=== PATIENT | female | born 1970 | race Caucasian/White ===

== ENCOUNTER 2025-08-03 16:21 | Outpatient (REF) | payer OTHER, SELFPAY ==
--- OUTSIDE RECORDS SUMMARY | 2025-06-22 08:51 | XMS_ITS | Encounter Summary ---
Author Organization [facility] Address [address] [place] [address] Care Team Providers Care Cradle Slide Maker Name Role Phone Unavailable Primary Care Provider Unavailabl e Reason for Referral * Outpatient (Routine) - Authorized Specialty Diagnoses / Procedures Referred By Alicia ferguson Referred To Contact Medical Oncology / Oncology Diagnoses Malignant Neoplasm Of Uterus Endometrial (HCC) Sri Cormier P.A.-C., M.S. [address] [place] [address] Phone: tel: fax: [facility] Referral ID Status Reason Start Date Expiration Date V isits Requested Visits Authorized [id number] Authorized 06/23/2025 12/23/2026 1 1 * Outpatient (Routine) - Closed Specialty Diagnoses / Procedures Referred By Alicia ferguson Referred To Contact Radiation Oncology Diagnoses Malignant Neoplasm Of Uterus Endometrial (HCC) Palak Nobles M.D. [address] [place] [address] Phone: tel: fax: [facility] Referral ID Status Reason Start Date Expiration Date Visits Re quested Visits Authorized [id number] Closed 05/31/2025 11/30/2026 1 1 Reason for Visit * Outpatient (Routine) - Closed Specialty Diagnoses / Procedures Referred By Contniles t Referred To Contact Radiation Oncology Diagnoses Malignant Neoplasm Of Uterus Endometrial (HCC) Palak Nobles M.D. [address] [place] [address] Phone: tel: fax: [facility] Referral ID Status Reason Start Date Expiration Date Visits Re quested Visits Authorized [id number] Closed 05/31/2025 11/30/2026 1 1 Encounter Details Date Type Department Care Team (Latest Contact Info) Description 06/22/2025 9:51 AM CDT - 06/23/2025 4:17 PM CDT Hospital Encounter Department of Radiation Oncology in [place], [place] [address] [place] [phone] Soren Dueñas M.D. [address] [place] [phone] Malignant Neoplasm Of Uterus Endometrial (HCC) (Primary Dx) Social History Tobacco Use Types Packs/Day Years Used Date Smoking Tobacco: Never Passive Smoke Exposure: Never Smokeless Tobacco: Never Alcohol Use Standard Drinks/Week Comments Not Currently 0 (1 standard drink = 0.6 oz pure alcohol) Very infrequently. Perhaps 2-3 drinks per year at special events. Humiliation, Afraid, Rape, and Kick questionnair e Answer Date Recorded Within the last year, have y ou been afraid of your partner or ex-partner? No 05/07/2025 Within the last year, have y ou been humiliated or emotionally abused in other ways by your partner or ex-partner? No Within the last year, have y ou been kicked, hit, slapped, or otherwise physically hurt by your partner or ex-partner? No 05/07/2025 Within the last year, have y ou been raped or forced to have any kind of sexual activity by your partner or ex-partner? No 05/07/2025 Hunger Vital Sign Answer Date Recorded Within the past 12 months, y ou worried that your food would run out before you got the money to buy more. Never true 05/07/20 25 Within the past 12 months, t he food you bought just didn't last and you didn't have money to get more. Never true 05/07/2025 PRAPARE - Transportation Answer Date Re corded In the past 12 months, has l ack of transportation kept you from medical appointments or from getting medications? No 12/2024 In the past 12 months, has l ack of transportation kept you from meetings, work, or from getting things needed for daily living? No 05/07/2025 [facility] Utilities Answer Date Recorded In the past 12 months has th e [employer], gas, oil, or water company threatened to shut off services in your home? No 05/07/2025 Housing Stability Answer Date Recorded What is your living situation today? I have a [facility] place to live 05/07/2025 Comments No Sex and Gender Information Value Date Recorded Sex Assigned at Female 04/16/2025 2:23 PM CDT Legal Sex Female 12:06 PM CDT Gender Identity Female 04/16/2025 2:23 PM CDT Sexual Orientation Straight 04/16/2025 2: 23 PM CDT documented as of this encounter Last Filed Vital Signs Vital Sign Reading Time Taken Comments Blood Pressure - - Pulse - - Temperature - - Respiratory Rate - - Oxygen Saturation - - Inhaled Oxygen Concentration - - Weight 78.9 kg (174 lb) 06/22/2025 9:56 AM CDT Height - - Body Mass Index 31.02 05/31/2025 1:02 PM CDT documented in this encounter Medications at Time of Discharge buPROPion XL (Wellbutrin XL) 150 mg 24 hr tablet Take 150 mg by mouth daily. Lactobacillus acidophilus (Probiotic) 10 billion cell capsule Take 1 capsule by mouth daily. multivitamin-min erals-lutein (Multivitamin 50 Plus) tablet Take 1 tablet by mouth daily. omega-3 fatty acids 1,000 mg capsule Take 1 g by mouth daily. rivaroxaban (Xarelto) 20 mg tablet Take 20 mg by mouth daily with evening meal. 03/31/2025 sennosides-docus ate sodium (Senokot-S) 8.6-50 mg per tablet Take 1 tablet by mouth daily. Until bowels return to normal 05/10/2025 venlafaxine XR (Effexor-XR) 75 mg 24 hr capsule Take 75 mg by mouth daily. acetaminophen (TylenoL) 500 mg tablet Take 2 tablets (1,000 mg total) by mouth every 6 (six) hours as needed for pain. 05/10/2025 5 ibuprofen 200 mg tablet Take 3 tablets (600 mg total) by mouth every 6 (six) hours as needed for pain. 05/10/2025 5 oxyCODONE (Roxicodone) 5 mg immediate release tabletIndication s:Acute Pain Take 1 tablet (5 mg total) by mouth every 4 (four) hours as needed for pain (not relieved by acetaminophen and ibuprofen) Indication: Acute Pain. 5 tablet 05/10/2025 2:09 PM CDT 05/10/2025 5 documented as of this encounter Consult Notes * Sri Cormier P.A.-C., M.S. - 06/22/2025 10:00 AM CDT RADIATION ONCOLOGY CONSULTATION SUBJECTIVE REQUESTING PROVIDER Palak Nobles M.D. REASON FOR CONSULT Ms. Nicole is a 55 y.o. year old woman with FIGO IIIC1i grade 1 endometrioid carcinoma of the uteruspresenting for consultation regarding the role of radiation therapy. Collaborating physician: Dr. Soren Dueñas ([phone]) HISTORY OF PRESENT ILLNESS Ms. April Nicole is a G0 55 y.o. female from [place], [place] with the following oncologichistory: Oncology History Malignant Neoplasm Of Uterus Endometrial (HCC) Initial Diagnosis 03/28/2025: Presented to outside ED with anxiety and palpitations, found to have recurrent pulmonary embolism with right heart strain. History of blood clots, with the first occurring in Junend a second clot earlier in 2024. Workup also revealed new ovarian and endometrial masses. 03/30/2025: CT abdomen pelvis reported endometrial mass likely represents endometrial carcinoma. 17cm malignant ovarian mass may be a metastasis. Scant ascites. Minimal stranding in the peritoneal cavity without definite nodules. Retroperitoneal lymphadenopathy. Mildly prominent epicardial lymph nodes. 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 CA 125= 290 [facility] pathology review: Endometrium, biopsy ([id number]; 03/30/2025): Complex atypical hyperplasia with squamous metaplasia focally bordering on FIGO grade 1 endometrioid carcinoma. 04/05/2025 Biopsy/Pathology Endometrial biopsy at [facility]: Tiny fragment of endometrial tissue with rare atypical glands and focal squamous metaplasia. Numerous fragments of unremarkable endocervical tissue in background of blood and endocervical type mucus. [facility] pathology review: Predominantly endocervical tissue present, insufficient endometrium for evaluation. 05/07/2025 Surgery and Procedures Exploratory laparotomy, total abdominal hysterectomy, bilateral salpingo oophorectomy, bilateral pelvic sentinel lymph node biopsies, right para-aortic lymphadenectomy, omentectomy, appendectomy withDr. Spears. 05/07/2025 Biopsy/Pathology Pathology reported FIGO grade 1 endometrioid carcinoma forming a 5 cm uterine mass, invading 2.5/4.5 cm into the myometrium (> 50%). Extensive lymphovascular space invasion is identified. Cervix negative for tumor. The left ovary contains a focus of FIGO grade 1 endometrioid carcinoma, 0.2 cm ingreatest dimension. FIGO grade 1-2 endometrioid carcinoma forms an 18 cm ovarian mass in the right o vary. The capsule is intact. The right fallopian tube is negative for tumor. Peritoneal pelvic cystic excision contained macrophages with rare clusters of endometrioid carcinoma. Omentum negative fortumor. Peritoneum, small bowel mesentery negative for tumor. Appendix negative for tumor. Peritoneum, Left pericolic flexure negative for tumor. 1/2 left pelvic sentinel lymph nodes positive for metastatic adenocarcinoma, metastasis consistent of two cell clusters, both < 0.5 mm, consistent withmicro metastasis. 1/1 right pelvic sentinel lymph node positive for isolated tumor cells. 7/7 rightpara-aortic lymph nodes negative for tumor. Cytology negative for malignancy. Comment: The findings support the primary site as endometrium rather than synchronous endometrioid carcinoma as arising at multiple sites. 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 HARRIS. The following CLINICALLY RELEVANT VARIANT was detected: Gene: [id number] DNA Change: c.98C>G (Exon 3) Amino Acid Change: p.S33C ([id number]) Variant Allele Frequency: 39.3% Clin/Path Stage Cancer Staging Malignant Neoplasm Of Uterus Endometrial (HCC) Staging form: Corpus Uteri - Carcinoma and Carcinosarcoma, AJCC 8th Edition and FIGO 2022 - Pathologic stage from 05/07/2025: FIGO Stage IIIC1i, calculated as Stage IIIC1 (pT3a, pN1mi, cM0) Histologic grade (G): G1 Histologic grading system: 3 grade system Residual tumor (R): R0 Extensive LVSI, bilateral ovarian involvement (18 cm rt ovarian met), >50 % MMI, INTERVAL HISTORY April Nicole confirms the above summary. She is now approximately 6-1/2 weeks out from surgery and has been recovering very well overall. Energy has been good. She denies any abdominal or pelvic pain, bowel or bladder issues, or vaginal bleeding or discharge. She notes she has had some anxiety which has been making it difficult to sleep and appetite has been up and down. She denies any other concerns today. Radiation Questions: Prior radiation therapy: None Medical devices: None Connective tissue diseases: None Gastrointestinal diseases: Patient denies past medical history of ulcerative colitis, Chron's disease, or recent diverticulitis. Other cancer: None Genetic testing: negative, pending Menopausal status: Perimenopausal prior to surgery, now post-menopausal Hormone therapy: No MEDICAL/SURGICAL HISTORY Past Medical History: Diagnosis Date Anxiety Generalized Disorder 2007 Cancer Uterus Endometrial Personal History 05/01/2025 Embolus Pulmonary (HCC) Personal History Of Other Venous Thrombosis And Embolism 06/02/2024 Suicide attempt 2009 Yes Thromboembolism NOS Past Surgical History: Procedure Laterality Date APPENDECTOMY N/A 05/07/2025 Procedure: APPENDECTOMY; Surgeon: Carmen Spears M.D.; Location: [facility] OR BILATERAL OOPHORECTOMY 05/07/25 BIOPSY SENTINEL LYMPH NODE Bilateral 05/07/2025 Procedure: PELVIC, BIOPSY SENTINEL LYMPH NODE.; Surgeon: Carmen Spears M.D.; Location: [facility] OR EXPLORATORY LAPAROTOMY N/A 05/07/2025 Procedure: EXPLORATORY LAPAROTOMY.; Surgeon: Carmen Spears M.D.; Location: [facility] OR HYSTERECTOMY TOTAL ABDOMINAL WITH SALPINGO-OOPHORECTOMY Bilateral 05/07/2025 Procedure: HYSTERECTOMY TOTAL ABDOMINAL, SALPINGO-OOPHORECTOMY.; Surgeon: Langstraat, Carmen L, M.D.; Location: [facility] OR LYMPHADENECTOMY - PELVIS OR AORTIC Right 05/07/2025 Procedure: LYMPHADENECTOMY, SUNITHA AORTIC.; Surgeon: Carmen Spears M.D.; Location: [facility] OR OMENTECTOMY N/A 05/07/2025 Procedure: OMENTECTOMY.; Surgeon: Carmen Spears M.D.; Location: [facility] OR SOCIAL HISTORY Ms. Nicole is single, with no children. She is a non-smoker. She drinks alcohol rarely. She works [employer] in [email or web address]. FAMILY HISTORY Cancer-related family history includes Cancer (possible prostate vs bone) in her paternal grandfather; Prostate cancer (age of onset: 50 - 59) in her mother's brother; Skin cancer (age of onset: 50 -59) in her father. Breast cancer in her paternal grandmother and paternal aunt. Benign brain tumor in her mother. OBJECTIVE Wt 78.9 kg BMI 31.02 kg/m?? Pain assessment: 0/10; Location: none General: Patient alert and oriented, no acute distress. Appears stated age. ECOG status: ECOG score: 0 - Fully active, able to carry on all pre-disease performance without restriction Lungs: Breathing comfortably on room air. Pelvis: Deferred, postoperative exam scheduled for this afternoon. DIAGNOSTICS Pertinent pathology and diagnostic reports reviewed with Dr. Dueñas prior to consultation. ASSESSMENT / PLAN #1 FIGO IIIC1i grade 1 endometrioid carcinoma of the uterus. It was a pleasure to meet with Ms. April Nicole in the Radiation Oncology Department today to discuss the role of radiation therapy in treating her endometrial cancer. She presents today accompanied by her friend. She is now approximately 6-1/2 weeks out from surgery and recovering very well overall. We reviewed her pathology which showed FIGO grade 1 endometrioid carcinoma forming a 5 cm uterine mass, invading 2.5/4.5 cm into the myometrium (> 50%), with extensive lymphovascular space invasion. The left ovary contains a focus of FIGO grade 1 endometrioid carcinoma measuring 0.2 cm, andthe right ovary is involved by FIGO grade 1-2 endometrioid carcinoma forming an 18 cm ovarian mass.1/2 left pelvic sentinel lymph nodes positive for micrometastasis (two cell clusters both less than0.5 mm), 1/1 right pelvic sentinel lymph node positive for isolated tumor cells, 7/7 right para-aortic lymph nodes negative for tumor. Cytology negative. She has already met with Medical Oncology whorecommended systemic therapy, but she is unsure if she would like to proceed. She notes she prefersto forego chemotherapy but is open to radiation therapy. We discussed we would also recommend chemoradiation therapy given in the sandwich approach. Alternatively, we would at least recommend pelvic radiation to reduce the risk of pelvic recurrence. We discussed the process and logistics of simulation and daily treatment Saturday through Saturday for five weeks with external beam radiation therapy as well as two fractions of vaginal cuff brachytherapy. We discussed possible side effects including fatigue, increased frequency and urgency with bowelmovements and urination, loose stools/diarrhea, vaginal dryness, stenosis, shortening, and pelvic insufficiency fracture. We briefly discussed [id number]: A comparison of acute toxicities between patients treated with protons or photons using intensity modulated radiation therapy for postoperative treatment of endometrial or cervical cancer. She is interested in receiving radiation closer to home in the [facility], which is certainly reasonable. She we will reach out to us if she changes her mindand would like to proceed with treatment here at [facility]. All questions were answered to the best of my ability and to her apparent satisfaction. Please refer to Dr. Dueñas's note for further details. EDUCATION Ready to learn, no apparent learning barriers were identified; learning preferences include listening. Explained diagnosis and treatment plan; patient expressed understanding of the content. ADMINISTRATIVE BILLING I personally spent 70 minutes in care of the patient today. Time includes both non face to face andface to face patient care. Cosigned by Soren Dueñas M.D. at 06/23/2025 4:17 PM CDT Associated attestation - Soren Dueñas M.D. - 06/23/2025 4:17 PM CDT I was asked to evaluate April Nicole by Dr. Nobles regarding management of stage IIIC1i, grade 1endometrial cancer. I saw and evaluated the patient and participated in the bowden portions of the service. I reviewed thedocumentation of Sri Cormier P.A.-C. and agree with the findings and plan. The patient is a 55-year-old female who underwent hysterectomy for endometrial cancer on 05/07/2025. She had an 18 cm grade 1-2 endometrioid carcinoma in the right ovary and a 5 cm grade 1 endometrioid carcinoma in the uterus invading 25 mm into a 45 mm thick myometrium with extensive lymphovascular space invasion. There was also a peritoneal pelvic cyst which contained rare clusters of endometrioid carcinoma. One of 2 left pelvic sentinel lymph nodes was positive, 1 right pelvic lymph node waspositive for isolated tumor cells and 7 para-aortic lymph nodes were negative. The molecular profile was NSMP. The patient met with Medical Oncology recommended systemic therapy but the patient does not wish to undergo systemic therapy. ECO The patient appears well on exam. I discussed the situation with the patient. She has multiple risk factors for pelvic and vaginal recurrence which could be reduced with a course of radiation therapy. These include extensive lymphovascular space invasion and deep invasion as well as positive lymph nodes. We discussed our standard approach which is to treat with both chemotherapy and radiation therapy typically in a sandwich approach. Omission of chemotherapy would be associated with a higher likelihood of distant relapse and omission of radiation would be associated with a higher likelihood of pelvic and vaginal relapse. Omission of chemotherapy or radiation therapy is likely to not impact overall survival. The patient would like to proceed with radiation therapy. She plans to investigate locations closer to home. Our approach would be to do 45 Gy in 25 fractions with intensity modulation and supplement with brachytherapy using a dose of 10 Gy in 2 fractions using a multi channel vaginal cylinder. Discussed and questions answered. documented in this encounter Plan of Treatment Upcoming Encounters Date Type Department Care Team (Latest Contact Info) Description 08/04/2025 3:15 PM BACTERIOLOGIST SOIL Appointment Department of Radiation Oncology in [place], [place] [address] [place] [address] Sima Hall M.D. [address] [place] [address] 08/05/2025 10:15 AM BACTERIOLOGIST SOIL Appointment Department of Radiation Oncology in [address] [phone] Sima Hall M.D. [address] [place] [phone] 08/06/2025 10:15 AM BACTERIOLOGIST SOIL Appointment Department of Radiation Oncology in [address] [phone] Sima Hall M.D. [address] [place] [phone] 08/09/2025 10:15 AM BACTERIOLOGIST SOIL Appointment Department of Radiation Oncology in [address] [phone] Sima Hall M.D. [address] [place] [phone] 08/10/2025 10:15 AM BACTERIOLOGIST SOIL Appointment Department of Radiation Oncology in [address] [phone] Sima Hall M.D. [address] [place] [phone] 08/10/2025 10:30 AM BACTERIOLOGIST SOIL Appointment Department of Radiation Oncology in [address] [phone] Sima Hall M.D. [address] [place] [phone] 08/11/2025 10:15 AM BACTERIOLOGIST SOIL Appointment Department of Radiation Oncology in [address] [phone] Sima Hall M.D. [address] [place] [phone] 08/16/2025 2:00 PM BACTERIOLOGIST SOIL Appointment Department of Radiation Oncology in [place], [place] [address] [place] [phone] Soren Dueñas M.D. [address] [place] [phone] 08/18/2025 1:30 PM BACTERIOLOGIST SOIL Appointment Department of Radiation Oncology in [place], [place] [address] [place] [phone] Soren Dueñas M.D. [address] [place] [phone] 09/20/2025 3:00 PM BACTERIOLOGIST SOIL Clinical Communication Virtual Review in [place], [place] [address] [place] [address] 09/23/2025 9:30 AM BACTERIOLOGIST SOIL Comprehensive Visit [facility] in [place], [place] [address] [place] [phone] Laila Reed D.O., M.P.H. [address] [place] [phone] 09/24/2025 8:00 AM BACTERIOLOGIST SOIL Comprehensive Visit Department of Oncology in [place], [place] [address] [place] [phone] Mago Lazcano P.A.-C., M.S. [address] [place] [phone] Scheduled Referrals Name Type Priority Associated Diagnoses Order Schedule Radiation Oncology - Inside Sales Assistant consult (clinic) Outpatient Referral Routine Once for 1 Occurrences starting 06/22/2025 until 06/22/2025 Oncology - Integrative Medicine consult (clinic) Outpatient Referral Routine Malignant Neoplasm Of Uterus Endometrial (HCC) Expected: 06/23/2025, Expires: 09/23/2026 documented as of this encounter Visit Diagnoses Diagnosis Malignant Neoplasm Of Uterus Endometrial (HCC)- Primary documented in this encounter
--- OUTSIDE RECORDS SUMMARY | 2025-06-22 12:00 | XMS_ITS | Encounter Summary ---
Author Organization [facility] Address [address] [place] [address] Care Team Providers Care Retread Supervisor Name Role Phone Unavailable Primary Care Provider Unavailabl e Reason for Referral * Outpatient (Routine) - Authorized Specialty Diagnoses / Procedures Referred By Alicia ferguson Referred To Contact Women's Health Diagnoses Symptoms Vasomotor Saúl Pratt P.A.-C. [address] [place] [address] Phone: tel: fax: [facility] Referral ID Status Reason Start Date Expiration Date V isits Requested Visits Authorized [id number] Authorized 06/22/2025 12/22/2026 1 1 Reason for Visit * Outpatient (Routine) - Closed Specialty Diagnoses / Procedures Referred By Alicia ferguson Referred To Contact Obstetrics and Gynecology Saúl Pratt P.A.-C. [address] [place] [address] Phone: tel: fax: [facility] Referral ID Status Reason Start Date Expiration Date Visits Re quested Visits Authorized [id number] Closed 05/10/2025 11/09/2026 1 1 Encounter Details Date Type Department Care Team (Late st Contact Info) Description 06/22/2025 1:00 PM CDT Office Visit Department of Obstetrics and Gynecology, Division of Gynecologic Oncology in [place], [place] [address] [place] [phone] Saúl Pratt P.A.-C. [address] [place] [address] Symptoms Vasomotor (Primary Dx); Follow Up Examination Status Post Surgery Social History Tobacco Use Types Packs/Day Years [...] things needed for daily living? No 05/07/[address] [facility] Utilities Answer Date Recorded In the past [address] [facility] electric, gas, oil, or water company threatened to shut off services in your home? No 05/07/2025 Housing Stability Answer Date Recorded What is your living situation today? I have a [facility] place to live 05/07/2025 Comments No Sex and Gender Information Value Date Recorded Sex Assigned at Female 04/16/2025 2:23 PM CDT Legal Sex Female 12:06 PM CDT Gender Identity Female 04/16/2025 2:23 PM CDT Sexual Orientation Straight 04/16/2025 2: 23 PM CDT documented as of this encounter Progress Notes * Saúl Pratt P.A.-C. - 06/22/2025 1:00 PM CDT SUBJECTIVE April Nicole is a 55 y.o. patient who is 6 weeks status post laparotomy, abdominal hysterectomy,bilateral salpingo-oophorectomy, pelvic biopsy, omentectomy, sentinel lymph node biopsy, right pelvic periaortic lymphadenectomy and appendectomy with Dr. Spears for a stage IIIC1 grade 1 endometrial cancer. She has met with Medical Oncology and has declined receiving chemotherapy. She met withRadiation Oncology today and is planning to receive adjuvant radiation treatment. She is undecided if she will do this closer to home or in [place]. Patient reports that she noticed continued improvement of abdominal discomfort after surgery. She is not requiring any pain medication at this time. She has noticed improvement of her energy level and has been able to return back to work. She has not noticed any new lower extremity swelling. She feels that she is urinating normally. Her bowel habits have returned to normal. She has noticed that she has felt more warm during the day and at night since surgery. She is also having difficulty with sleeping. She has not had any nausea or vomiting. OBJECTIVE There were no vitals taken for this visit. General: No acute distress. Abdomen: Soft, non-tender, non-distended. Incision: Incision edges are well approximated and without any erythema or drainage. With Valsalva,no evidence of herniation. Pelvic: External genitalia appears normal. A long, narrow sized speculum was used to visualize the vaginal vault. Vaginal incision appears to be healing well and is without discharge, granulation tissue or separation. Bimanual examination confirms an intact vaginal apex. Examination was assisted byAudrey Oseguera ASSESSMENT / PLAN Patient appears to be doing well overall. PLAN Patient may slowly return back to normal lifting and exercise activities at this time. She may return to sexual activity when she desires. If she would experience any vaginal bleeding orconcerns with sexual activity, she should let us know. Patient does not require Pap smears in the future as she does not have a history of cervical dysplasia. Patient does not require any additional follow up with Dr. Spears's team. She will be followed with Radiation Oncology following completion of her adjuvant treatment. I recommended meeting with [facility] to talk about treatment options for her vasomotor symptoms. An appointment has been requested for her. She inquired about ways to help decrease the appearance of scarring from her incision. Discussed cocoa butter, vitamin E oil, Mederma and/or silicone gel sheeting to help decrease the scar appearance. documented in this encounter Plan of Treatment Upcoming Encounters Date Type Department Care Team (Latest Contact Info) Description 08/04/2025 3:15 PM COMPOTYPE OPERATOR Appointment Department of Radiation Oncology in [address] [phone] Sima Hall M.D. [address] [place] [phone] 08/05/2025 10:15 AM COMPOTYPE OPERATOR Appointment Department of Radiation Oncology in [address] [phone] Sima Hall M.D. [address] [place] [phone] 08/06/2025 10:15 AM COMPOTYPE OPERATOR Appointment Department of Radiation Oncology in [address] [phone] Sima Hall M.D. [address] [place] [phone] 08/09/2025 10:15 AM COMPOTYPE OPERATOR Appointment Department of Radiation Oncology in [address] [phone] Sima Hall M.D. [address] [place] [phone] 08/10/2025 10:15 AM COMPOTYPE OPERATOR Appointment Department of Radiation Oncology in [place], [place] [address] [place] [address] Sima Hall M.D. [address] [place] [phone] 08/10/2025 10:30 AM COMPOTYPE OPERATOR Appointment Department of Radiation Oncology in [place], [place] [address] [place] [phone] Sima Hall M.D. [address] [place] [phone] 08/11/2025 10:15 AM COMPOTYPE OPERATOR Appointment Department of Radiation Oncology in [place], [place] [address] [place] [address] Sima Hall M.D. [address] [place] [phone] 08/16/2025 2:00 PM COMPOTYPE OPERATOR Appointment Department of Radiation Oncology in [place], [place] [address] [place] [phone] Soren Dueñas M.D. [address] [place] [phone] 08/18/2025 1:30 PM COMPOTYPE OPERATOR Appointment Department of Radiation Oncology in [place], [place] [address] [place] [phone] Soren Dueñas M.D. [address] [place] [phone] 09/20/2025 3:00 PM COMPOTYPE OPERATOR Clinical Communication Virtual Review in [place], [place] [address] [place] [address] 09/23/2025 9:30 AM COMPOTYPE OPERATOR Comprehensive Visit [facility] in [place], [place] [address] [place] [address] Laila Reed D.O., M.P.H. [address] [place] [phone] 09/24/2025 8:00 AM COMPOTYPE OPERATOR Comprehensive Visit Department of Oncology in [place], [place] [address] [place] [address] Mago Lazcano P.A.-C., M.S. [address] [place] [phone] Scheduled Referrals Name Type Priority Associated Diagnoses Montrell Weiner Women's Health - Menopause consult (clinic) Outpatient Referral Routine Symptoms Vasomotor Expected: 06/22/2025, Expires: 09/22/2026 documented as of this encounter Visit Diagnoses Diagnosis Symptoms Vasomotor- Primary Follow Up Examination Status Post Surgery documented in this encounter
--- OUTSIDE RECORDS SUMMARY | 2025-06-28 07:49 | XMS_ITS | Encounter Summary ---
Author Organization [facility] Address [facility] [place] [address] Care Team Providers Care It Risk And Assurance Manager Name Role Phone Linda Barros PA-C Primary Care Provider Alannah Bateman PA-C Unavailable [phone] Emeli Romo MD Unavailable [phone] Reason for Referral * Diagnostic Imaging Mammo (Routine) - Pending Review Specialty Diagnoses / Procedures Referred By Alicia ferguson Referred To Contact Radiology. Diagnoses Visit for screening mammogram Procedures MA Screening Bilateral w/ Jose Linda Barros PA-C [address] [place] [address] Phone: tel: fax: Referral ID Status Reason Start Date Expiration Date V isits Requested Visits Authorized [id number] Pending Review 06/18/2025 06/18/2026 1 1 * Diagnostic Imaging Mammo (Routine) - Pending Review Specialty Diagnoses / Procedures Referred By Alicia ferguson Referred To Contact Radiology. Diagnoses Visit for screening mammogram Procedures MA Screening Bilateral w/ Jose Linda Barros PA-C [address] [place] [address] Phone: tel: fax: Referral ID Status Reason Start Date Expiration Date V isits Requested Visits Authorized Pending Review 06/18/2025 06/18/2026 1 1 Reason for Visit * Diagnostic Imaging Mammo (Routine) - Pending Review Specialty Diagnoses / Procedures Referred By Alicia ferguson Referred To Contact Radiology. Diagnoses Visit for screening mammogram Procedures MA Screening Bilateral w/ Jose Linda Barros PA-C [address] [place] [address] Phone: tel: fax: Referral ID Status Reason Start Date Expiration Date V isits Requested Visits Authorized [id number] Pending Review 06/18/2025 06/18/2026 1 1 Encounter Details Date Type Department Care Team (Latest Contact Info) Description 06/28/2025 8:49 AM CDT - 06/28/2025 11:59 PM CDT Hospital Encounter [address], [address] [place] [phone] Linda Barros PA-C [address] [employer] [address] [place] [address] Visit for screening mammogram Discharge Disposition: Home or Self Care Social History Tobacco Use Types Packs/Day Years Used Date Smoking Tobacco: Never Alcohol Use Standard Drinks/Week Comments Not Currently 0 (1 standard drink = 0.6 oz pur e alcohol) Rare social drinking Adolescent Education Answer Date Record ed Getting School Help Needed Not on file 05/24 Food Insecurity Answer Date Recorded Within the past 12 months, d id you worry that your food would run out before you got money to buy more? No 03/29/2025 Within the past 12 months, d id the food you bought just not last and you didn t have money to get more? No 03/29/2025 Housing Stability Answer Date Recorded Do you have housing? (Housin g is defined as stable permanent housing and does not include staying outside in a car, in a tent, in an abandoned building, in an overnight intermediate, or couch-surfing.) Yes 03/29/2025 Are you worried about losing your housing? No 03/29/2025 Financial Resource Strain Answer Date R ecorded Within the past 12 months, h ave you or your family members you live with been unable to get utilities (heat, electricity) when it was really needed? No 03/29/2025 Transportation Needs Answer Date Record ed Within the past 12 months, h as lack of transportation kept you from medical appointments, getting your medicines, non-medical meetings or appointments, work, or from getting things that you need? No 03/29/2025 Interpersonal Safety Answer Date Record ed Do you feel physically and e motionally safe where you currently live? Yes 03/29/2025 Within the past 12 months, h ave you been hit, slapped, kicked or otherwise physically hurt by someone? No 03/29/2025 Within the past 12 months, h ave you been humiliated or emotionally abused in other ways by your partner or ex-partner? No 03/29/2025 Comments No Sex and Gender Information Value Date Recorded Sex Assigned at Not on file Legal Sex Female 4:51 AM PLANNING CONSULTANT Gender Identity Not on file Sexual Orientation Not on file documented as of this encounter Medications at Time of Discharge acetaminophen (TYLENOL) 325 MG tabletIndications:A cute pulmonary embolism, unspecified pulmonary embolism type, unspecified whether acute cor pulmonale present (H) Take 2 tablets (650 mg) by mouth every 4 hours as needed for mild pain or other (and adjunct with moderate or severe pain or per patient request). 03/31/2025 buPROPion (WELLBUTRIN XL) 150 MG 24 hr tablet Take 150 mg by mouth every morning. dexAMETHasone (DECADRON) 4 MG tabletIndications:E ndometrial cancer (H) Take 2 tablets (8 mg) by mouth daily. Take for 3 days, starting the day after chemo. Take with food. 6 tablet 5 04/12/2025 fish oil-omega-3 fatty acids 1000 MG capsule Take 1 g by mouth daily. lidocaine-prilocain e (EMLA) 2.5-2.5 % external creamIndications:En dometrial cancer (H) Apply topically as needed (pain due to port access). Apply to port 30 minutes prior to lab appointment. 30 g 6 04/12/2025 multivitamin, therapeutic (THERA-VIT) TABS tablet Take 1 tablet by mouth daily. ondansetron (ZOFRAN) 8 MG tabletIndications:E ndometrial cancer (H) Take 1 tablet (8 mg) by mouth every 8 hours as needed for nausea (vomiting). 30 tablet 2 04/12/2025 Probiotic Product (PROBIOTIC PO) Take 1 capsule by mouth daily. prochlorperazine (COMPAZINE) 10 MG tabletIndications:E ndometrial cancer (H) Take 1 tablet (10 mg) by mouth every 6 hours as needed for nausea or vomiting. 30 tablet 2 04/12/2025 rivaroxaban ANTICOAGULANT (XARELTO) 20 MG TABS tabletIndications:A cute pulmonary embolism, unspecified pulmonary embolism type, unspecified whether acute cor pulmonale present (H) 15 mg twice daily with food for 3 weeks, then 20 mg once daily with food (NOTE: will need 42 15 mg tablets the first time this is filled) 60 tablet 1 03/31/2025 venlafaxine (EFFEXOR XR) 75 MG 24 hr capsule Take 75 mg by mouth daily. documented as of this encounter Plan of Treatment Not on file documented as of this encounter Procedures Procedure Name Priority Date/Time Associated Diagnosis Comments MA SCREENING BILATERAL W/ JOSE Routine 06/28/2025 9:02 AM CDT Visit for screening mammogram documented in this encounter Results * MA Screening Bilateral w/ Jose (06/28/2025 9:02 AM CDT) Anatomical Region Laterality Modality Breast Bilateral Mammography Impressions 06/28/2025 9:34 AM CDT IMPRESSION: ACR BI-RADS Category 1: Negative BREAST CANCER SCREENING RECOMMENDATION: Routine yearly mammography beginning at age 40 or as discussed with your provider. The results and recommendations of this examination will be communicated to the patient. Wade Gomes MD Narrative 06/28/2025 9:34 AM CDT BILATERAL FULL FIELD DIGITAL SCREENING MAMMOGRAM WITH TOMOSYNTHESIS Performed on: 06/28/25 Compared to: 06/19/2024, 05/31/2023, and 04/02/2022 Technique: This study was evaluated with the assistance of Computer-Aided Detection. Breast Tomosynthesis was used in interpretation. Findings: Breast Density: Heterogeneously dense, which may obscure small masses. There is no radiographic evidence of malignancy. Linda Barros PA-C IMG MAMMOGRAPHY ORDERA BLES Final Result documented in this encounter Visit Diagnoses Diagnosis Visit for screening mammogram Other screening mammogram documented in this encounter Care Teams It Risk And Assurance Manager Relationship Specialty Start Date End Date Linda Barros PA-C [address] [facility] [address] [place] [address] PCP - General Physician Assignment Clerk 05/30/23 Alannah Bateman PA-C [address] [place], [place] [phone] Assigned Cancer Care Provider 08/24/24 Emeli Romo MD [address] [place], [place] [address] Physician Gynecologic Oncology 04/01/25 documented as of this encounter
--- OUTSIDE RECORDS SUMMARY | 2025-06-30 09:25 | XMS_ITS | Encounter Summary ---
Author Organization [facility] Address [address] [place] [address] Care Team Providers Care Lap Layer Name Role Phone Unavailable Primary Care Provider Unavailabl e Reason for Referral * Specialty Diagnoses / Procedures Referred By Contac t Referred To Contact Diagnoses Malignant Neoplasm Of Uterus Endometrial (HCC) Padmini Becerra P.A.-C., M.S. [address] [place] [phone] Phone: tel: fax: [facility] Region Referral ID Status Reason Start Date Expiration Date Visits Re quested Visits Authorized Scheduling Instructions Please do not schedule if patient has 10 fractions or less, unless requested by care team. * Radiation Therapy (Routine) - Authorized Specialty Diagnoses / Procedures Referred By Contac t Referred To Contact Diagnoses Malignant Neoplasm Of Uterus Endometrial (HCC) Procedures Initial Rad Onc Treatment Planning CT Simulation MT IMRT RADIOTHERAPY PLAN SIM Sima Hall M.D. [address] [place] [address] Phone: tel: fax: [facility] [place] [address] [place] [address] Referral ID Status Reason Start Date Expiration Date V isits Requested Visits Authorized [id number] Authorized 06/30/2025 09/30/2026 2 2 * Outpatient (Routine) - Closed Specialty Diagnoses / Procedures Referred By Alicia t Referred To Contact Radiation Oncology Soren Dueñas M.D. [address] [place] [address] Phone: tel: fax: [facility] [place] Referral ID Status Reason Start Date Expiration Date Visits Re quested Visits Authorized [id number] Closed 06/24/2025 12/24/2026 1 1 Reason for Visit * Outpatient (Routine) - Closed Specialty Diagnoses / Procedures Referred By Alicia ferguson Referred To Contact Radiation Oncology Soren Dueñas M.D. [address] [place] [address] Phone: tel: fax: [facility] [place] Referral ID Status Reason Start Date Expiration Date Visits Re quested Visits Authorized [id number] Closed 06/24/2025 12/24/2026 1 1 Encounter Details Date Type Department Care Team (Latest Contact Info) Description 06/30/2025 10:25 AM CDT - 06/30/2025 11:52 AM CDT Hospital Encounter Department of Radiation Oncology in [address] [phone] Sima Hall M.D. [address] [place] [phone] Malignant Neoplasm Of Uterus Endometrial (HCC) (Primary [...] things needed for daily living? No 05/07/2025 [facility] Utilities Answer Date Recorded In the past 12 months has [facility] electric, gas, oil, or water [employer] threatened to shut off services in your home? No 05/07/2025 Housing Stability Answer Date Recorded What is your living situation today? I have a [facility] place to live 05/07/2025 Comments No Sex and Gender Information Value Date Recorded Sex Assigned at Female 04/16/2025 2:23 PM CDT Legal Sex Female 12:06 PM CDT Gender Identity Female 04/16/2025 2:23 PM CDT Sexual Orientation Straight 04/16/2025 2: 23 PM CDT Occupation Industry Job Start Date Job End Date Not on file Not on file Not on file Not on file documented as of this encounter Last Filed Vital Signs Vital Sign Reading Time Taken Comments Blood Pressure 167/94 06/30/2025 10:28 AM CDT Pulse 96 06/30/2025 10:28 AM CDT Temperature 36.3 C (97.4 F) 06/30/2025 10:28 AM CDT Respiratory Rate - - Oxygen Saturation - - Inhaled Oxygen Concentration - - Weight 79.6 kg (175 lb 7.8 oz) 06/30/2025 10:28 AM CDT Height - - Body Mass Index 31.29 05/31/2025 1:02 PM CDT documented in this [...] as of this encounter Consult Notes * Padmini Becerra P.A.-Vibha., M.S. - 06/30/2025 10:30 AM CDT SUBJECTIVE REQUESTING PROVIDER Soren Dueñas M.D. CHIEF COMPLAINT/REASON FOR CONSULT 1. Malignant Neoplasm Of Uterus Endometrial (HCC) SUPERVISED BY: Sima Hall M.D. HISTORY OF PRESENT ILLNESS Ms. April Nicole is a 55-year-old female with endometrial cancer, who presents today prior to initiation of radiation therapy. Her oncologic history is as follows: Oncology History Malignant Neoplasm Of Uterus Endometrial (HCC) 03/28/2025 Initial Diagnosis Presented to outside ED with anxiety and palpitations, found to have recurrent pulmonary embolism with right heart strain. History of blood clots, with the first occurring in June 2024 and a second clot earlier in 2024. Workup also revealed new ovarian and endometrial masses. 03/30/[address] abdomen pelvis reported endometrial mass likely represents endometrial carcinoma. 17 cm malignant ovarian mass may be a metastasis. Scant ascites. Minimal stranding in the peritoneal cavity without definite nodules. Retroperitoneal lymphadenopathy. Mildly prominent epicardial lymph nodes. 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 CA 125= 290 [facility] pathology review: Endometrium, biopsy ([id number]; 03/30/2025): Complex atypical hyperplasia with squamous metaplasia focally bordering on FIGO grade 1 endometrioid carcinoma. 04/05/2025 Biopsy/Pathology Endometrial biopsy at [facility]: Tiny fragment of endometrial tissue with rare atypical glands and focal squamous metaplasia. Numerous fragments of unremarkable endocervical tissue in background of blood and endocervical type mucus. [facility] pathology review: Predominantly endocervical tissue present, [...] c.98C>G (Exon 3) Amino Acid Change: p.S33C ([id number]) Variant Allele Frequency: 39.3% Clin/Path Stage Cancer [...] (18 cm rt ovarian met), >50 % MMI 05/31/2025 Other Medical Oncology appointment with Dr. Nobles who recommended 6 cycles of adjuvant carboplatin/paclitaxel and adjuvant radiation. The patient subsequently declined chemotherapy. 06/21/2025 Genetic Testing and Tumor Genotyping Negative germline genetic testing in 2024; Multi-Cancer panel through [employer]. 06/22/2025 Other Radiation Oncology consultation with Dr. Dueñas who recommended chemotherapy and radiation therapyin a sandwich approach. Radiation therapy would be administered in 25 fractions with IMRT and supplemented with brachytherapy in 2 fractions. 07/07/2025 - Radiation Therapy Radiation Therapy Treatment Details (Noted on 06/24/2025) Site: Bilateral Pelvis Technique: No technique specified Goal: Curative Planned Treatment Start Date: 07/07/2025 INTERVAL HISTORY: The patient was seen and examined today with Dr. Hall. The patient reports doing well overall, but she has been feeling more anxious. She reports normal to slightly decreased energy levels. She reports healing well overall following surgery. She denies any urinary issues. She denies vaginal discharge or bleeding. She denies any pain. She reports averaging one bowel movement per day. The patient denies a history of prior radiation therapy, connective tissue disorders, or inflammatory bowel disease. Her ECOG performance status is 0. REVIEW OF SYSTEMS Review of systems was negative except as documented above. PATIENT REPORTED SYMPTOM SCREEN: FATIGUE (Scale: 0 = no fatigue; 10 = worst fatigue you can imagine): 2 PAIN (Scale: 0 = no pain; 10 = worst pain you can imagine): 0 OVERALL QUALITY OF LIFE (Scale: 0 = as bad as can be; 10 = as good as can be): 8 MEDICAL HISTORY Medical History[1] SURGICAL HISTORY Surgical History[2] FAMILY HISTORY Family History[3] SOCIAL HISTORY Social History[4] OBJECTIVE BP (!) 167/94 (BP Location: Right arm, Patient Position: Sitting, Cuff Size: Regular) Pulse 96 Temp 36.3 ??C (Temporal) Wt 79.6 kg BMI 31.29 kg/m?? PHYSICAL EXAMINATION General: Patient is alert and oriented in no apparent distress. Lungs: Clear to auscultation bilaterally. Heart: Regular rate and rhythm. ASSESSMENT / PLAN #1 FIGO stage IIIC1 (pT3a, pN1mi, cM0) endometrial cancer s/p exploratory laparotomy, total abdominal hysterectomy, bilateral salpingo-oophorectomy, bilateral pelvic sentinel lymph node biopsies, right para-aortic lymphadenectomy, omentectomy, and appendectomy on May 07, 2025 I had a detailed discussion with the patient regarding her endometrial cancer diagnosis. We reviewed her oncologic history as detailed above. The patient states that she is not planning on proceedingwith chemotherapy. The patient has already met with Dr. Dueñas in Radiation Oncology in [place] who recommended radiation therapy in 25 fractions followed by brachytherapy in 2 fractions. We discussed the risks, benefits, and alternatives of radiotherapy in this setting. Dr. Hall offered external beam radiation therapy in 25 fractions. I discussed the logistics as well as the acute and chronic side effects of treatment in detail. Theacute side effects are common and include, but are not limited to, increased frequency and urgency of bowel movements, diarrhea, gaseous bloating/discomfort, urinary frequency and urgency with possible burning, radiation dermatitis, and fatigue. Long-term side effects could include, but are not limited to, increased frequency of bowel movements and/or urination, vaginal dryness, discomfort with sexual intercourse, more frequent urinary tract infections, lymphedema, narrowing of the urethra, blood in the urine or stool, arthritis of the hips, and secondary malignancy. The patient was provided with a written summary of recommendations. Her questions were answered to her verbalized satisfaction. Dr. Hall also met with the patient today, please see her attestation for details. The patient is scheduled for CT simulation today. The patient was provided with our contact information. She will contact us with questions or concerns. She verbally expressed her understanding of the plan. EDUCATION: Ready to learn, no apparent learning barriers were identified; learning preferences include listening. Explained diagnosis and treatment plan; patient expressed understanding of the content. I personally spent 45 minutes in care of the patient today. Time includes both non face to face andface to face patient care. Signed by: Padmini Becerra P.A.-C., M.S. 06/30/2025 11:41 AM CDT [facility] [address] [place] [address] [1] Past Medical History: Diagnosis Date Anxiety Generalized Disorder 2007 Cancer Uterus Endometrial Personal History 05/01/2025 Embolus Pulmonary (HCC) Suicide attempt 2009 Yes Thromboembolism NOS [2] Past Surgical History: Procedure Laterality Date APPENDECTOMY [...] 05/07/2025 Procedure: HYSTERECTOMY TOTAL ABDOMINAL, SALPINGO-OOPHORECTOMY.; Surgeon: Carmen Spears M.D.; Location: [facility] OR LYMPHADENECTOMY - PELVIS OR AORTIC Right 05/07/2025 Procedure: LYMPHADENECTOMY, SUNITHA AORTIC.; Surgeon: Carmen Spears M.D.; Location: [facility] OR OMENTECTOMY N/A 05/07/2025 Procedure: OMENTECTOMY.; Surgeon: Carmen Spears M.D.; Location: [facility] OR [3] Family History Problem Relation Name Age of Onset Skin cancer Father Ezra 50 - 59 Brain tumor Mother Rox 30 - 39 Benign tumor pressing on pituitary but kept growing back. Kidney stone Brother Soren 30 - 39 Two surgeries for kidney stones Lorenzo Parkinson White syndrome Brother Soren 0 - 9 Prostate cancer Mother's Brother Jb 50 - 59 Bilateral breast cancer (in both breasts) Paternal Grandmother Paradise 40 - 49 Bilateral breast cancer (in both breasts) Father's Sister Yaquelin 50 - 59 Cancer Paternal Grandfather possible prostate vs. bone ADD / ADHD Nephew Motor vehicle accident Father's Brother [place] Parkinson's disease Father's Brother Seymour onset 60s [4] Social History Socioeconomic History Marital status: Single Occupational History Employer: [employer] Tobacco Use Smoking status: Never Passive exposure: Never Smokeless tobacco: Never Vaping Use Vaping status: never used Substance and Sexual Activity Alcohol use: Not Currently Comment: Very infrequently. Perhaps 2-3 drinks per year at special events. Drug use: Never Sexual activity: Never Social Drivers of Health Food Insecurity: No Food Insecurity (05/07/2025) Hunger Vital Sign Worried About Running Out of Food in the Last Year: Never true Ran Out of Food in the Last Year: Never true Transportation Needs: No Transportation Needs (05/07/2025) PRAPARE - Transportation Lack of Transportation (Medical): No Lack of Transportation (Non-Medical): No Intimate Partner Violence: Not At Risk (05/07/2025) Humiliation, Afraid, Rape, and Kick questionnaire Fear of Current or Ex-Partner: No Emotionally Abused: No Physically Abused: No Sexually Abused: No Housing Stability: Low Risk (05/07/2025) Housing Stability Housing: Living Situation: I have a steady place to live Cosigned by Sima Hall M.D. at 06/30/2025 2:25 PM CDT Associated attestation - Sima Hall M.D. - 06/30/2025 2:25 PM CDT RADIATION ONCOLOGY CONSULT Please see Ms. Becerra's detailed note for the patient's initial presentation and work-up. Briefly, Ms. Nicole is a very pleasant 55 year old female with a resected Stage IIIC1 endometrial carcinoma of the uterus who presents to discuss adjuvant radiation therapy after not being interested in adjuvant chemotherapy. She saw my colleagues in [place]. I have independently reviewed her imaging, operative and pathology reports. Briefly, she was found to have an 18cm, G1-2 endometrioid carcinoma in the right ovary, 5cm, G1 endometrioid carcinoma in the uterus (25mm invasion in a 45mm thick myometrium) with extensive LVSI. There was a peritoneal pelvic cyst with rare clusters of endometrioid carcinoma. One of 2 left pelvic sentinel lymph nodes and 1 right pelvic lymph node had isolated tumor cells and 7 para-aortic lymph nodes were negative. The molecular profile was NSMP. She has recovered well. On exam, she appears well. Detailed exam as per Ms. Becerra. She had a pelvic exam that was negative on June 22, 2025. We discussed the findings above and below in this note with the patient. We discussed her treatmentalternatives. She has decided against adjuvant chemotherapy, but is interested in EBRT followed by two HDR vaginal cuff boosts. We discussed pelvic EBRT. We discussed the rationale, risks, side effects and adjuvant goals of radiation therapy. We discussed the acute as well as intermediate risks from EBRT, including, but not limited to fatigue, nausea/vomiting, diarrhea, bowel/bladder changes (including small bowel obstruction and bowel changes), skin changes, chronic changes in bowel function and small risks for kidney or bone damage or secondary malignancies. We also discussed vaginal narrowingand vaginal dilators that will be provided towards the end of EBRT. Our nurses will provide her with them as well as education and when to start. She understood and her questions were answered. She wished to proceed with treatment. We tentatively plan on delivering 4500 cGy in 25 fractions with two HDR brachytherapy boosts done in [place] towards the end of her EBRT or just after completing herEBRT. The EBRT will start on Monday, July 07, 2025. She will likely do her intermediate follow-up with me after her treatments have completed. She did ask about Integrative Medicine consultation and understands that she is on a waitlist. I told her to ask if she can at least have the RN education visit. My thanks to Ms. Casa PA-C, Regan Riley Gill and Linda Barros PA-C for the opportunity to participate in this patient's care. EDUCATION Ready to learn, no apparent learning barriers were identified; learning preferences include listening. Explained diagnosis and treatment plan; patient expressed understanding of the content. CONSENT Discussed the risks, benefits, alternatives, and the necessity of other members of the healthcare team participating in the procedure. All questions answered and consent given. DIAGNOSIS #1 FIGO stage IIIC1 (pT3a, pN1mi, cM0) endometrial cancer s/p exploratory laparotomy, total abdominal hysterectomy, bilateral salpingo-oophorectomy, bilateral pelvic sentinel lymph node biopsies, right para-aortic lymphadenectomy, omentectomy, and appendectomy on May 07, 2025 Signed by: Sima Hall M.D. 06/30/2025 documented in this encounter Plan of Treatment Upcoming Encounters Date Type Department Care Team (Latest Contact Info) Description 08/04/2025 3:15 PM [employer] Appointment Department of Radiation Oncology in [address] [phone] Sima Hall M.D. [address] [place] [phone] 08/05/2025 10:15 AM [employer] Appointment Department of Radiation Oncology in [address] [phone] Sima Hall M.D. [address] [place] [address] 08/06/2025 10:15 AM [employer] Appointment Department of Radiation Oncology in [address] [place] [address] Sima Hall M.D. [address] [place] [phone] 08/09/2025 10:15 AM [employer] Appointment Department of Radiation Oncology in [address] [phone] Sima Hall M.D. [address] [place] [phone] 08/10/2025 10:15 AM [employer] Appointment Department of Radiation Oncology in [address] [phone] Sima Hall M.D. [address] [place] [phone] 08/10/2025 10:30 AM [employer] Appointment Department of Radiation Oncology in [address] [phone] Sima Hall M.D. [address] [place] [phone] 08/11/2025 10:15 AM [employer] Appointment Department of Radiation Oncology in [address] [phone] Sima Hall M.D. [address] [place] [phone] 08/16/2025 2:00 PM [employer] Appointment Department of Radiation Oncology in [place], [place] [address] [place] [phone] Soren Dueñas M.D. [address] [place] [phone] 08/18/2025 1:30 PM [employer] Appointment Department of Radiation Oncology in [place], [place] [address] [place] [phone] Soren Dueñas M.D. [address] [place] [phone] 09/20/2025 3:00 PM [employer] Clinical Communication Virtual Review in [place], [place] [address] [place] [phone] 09/23/2025 9:30 AM [employer] Comprehensive Visit [facility] in [address] [phone] Laila Reed D.O., M.P.H. [address] [place] [phone] 09/24/2025 8:00 AM [employer] Comprehensive Visit Department of Oncology in [address] [phone] Mago Lazcano P.A.-C., M.S. [address] [place] [phone] Scheduled Referrals Name Type Priority Associated Diagnoses Orde r Schedule Radiation Oncology office visit (clinic) Outpatient Referral Routine Once for 1 Occurrences starting 06/30/2025 until 06/30/2025 Radiation Oncology - Nurse education visit (clinic) Outpatient Referral Routine Malignant Neoplasm Of Uterus Endometrial (HCC) Expected: 06/30/2025, Expires: 09/30/2026 documented as of this encounter Results * Initial Rad Onc Treatment Planning CT Simulation (06/30/2025 1:00 PM CDT) Narrative TIFFANIE RODRIGUEZ - 06/30/2025 1:00 PM CDT Sima Hall M.D. 06/30/2025 12:44 PM Initial Rad Onc Treatment Planning CT Simulation Performed by: Sima Hall M.D. Authorized by: Sima Hall M.D. Simulation was performed under physician supervision based on physician order in preparation for radiation therapy. Physician was immediately available to provide assistance and direction throughout the procedure. Written consent for treatment was completed or confirmed. The patient was appropriately identified and placed in the treatment position using the necessary immobilization to ensure a reproducible treatment position. Reference mc were placed to facilitate marking of isocenter. Area scanned:Pelvis Contrast used for the simulation procedure: IV Patient position:head first supine Custom immobilization: Knee Cushion Motion management: None Bolus: No CT guidance: Following positioning of the patient, a series of slices was obtained to be utilized in treatment planning. CT images were transferred to the Eclipse treatment planning system, after a reference isocenter was determined and marked. Segmentation and treatment planning will take place prior to treatment delivery. Patient set up and imaging was appropriate and completed without incident. Vascular Ultrasound Technician use:No Sima Hall M.D. RADIATION ONCOLOGY ORDERA BANNERS Final Result TIFFANIE steel documented in this encounter Visit Diagnoses Diagnosis Malignant Neoplasm Of Uterus Endometrial (HCC)- Primary Malignant Neoplasm Of Uterus Endometrial (HCC) documented in this encounter
--- OUTSIDE RECORDS SUMMARY | 2025-06-30 10:53 | XMS_ITS | Encounter Summary ---
Author Organization [facility] Address [address] [place] [address] Care Team Providers Care Rheumatologist Name Role Phone Unavailable Primary Care Provider Unavailabl e Reason for Visit * Radiation Therapy (Routine) - Authorized Specialty Diagnoses / Procedures Referred By Alicia ferguson Referred To Contact Diagnoses Malignant Neoplasm Of Uterus Endometrial (HCC) Procedures Initial Rad Onc Treatment Planning CT Simulation [place] IMRT RADIOTHERAPY PLAN Soren Peacock M.D. [address] [place] [address] Phone: tel: fax: [facility] Region Referral ID Status Reason Start Date Expiration Date V isits Requested Visits Authorized [id number] Authorized 06/30/2025 09/24/2026 2 2 Encounter Details Date Type Department Care Team (Latest Contact Info) Description 06/30/2025 11:53 AM CDT - 06/30/2025 12:12 PM CDT Hospital Encounter Department of Radiation Oncology in [place], [place] [address] [place] [phone] Sima Hall M.D. [address] [place] [phone] Maikol Jameson, RGladisNGladis Anemia Iron Deficiency (Primary Dx) Social History Tobacco Use Types Packs/Day Years Used Date Smoking Tobacco: Never Passive Smoke Exposure: Never Smokeless Tobacco: Never Alcohol Use Standard Drinks/Week Comments Not Currently 0 (1 standard drink = 0.6 oz pure alcohol) Very infrequently. Perhaps 2-3 drinks per year at special events. Jethroiliation, Afraid, Rape, and Kick questionnair e Answer [...] things needed for daily living? No 05/07/2025 [facility] Utilities Answer Date Recorded In the past 12 months has [facility] electric, gas, oil, or water company threatened to shut off services in your home? No 05/07/2025 Housing Stability Answer Date Recorded What is your living situation today? I have a [facility] place to live 05/07/2025 Comments No Sex [...] 05/10/2025 5 documented as of this encounter Plan of Treatment Upcoming Encounters Date Type Department Care Team (Latest Contact Info) Description 08/04/2025 3:15 PM FOUNDRY METALLURGIST Appointment Department of Radiation Oncology in [place] [address] [place] [address] Sima Hall M.D. [address] [place] [phone] 08/05/2025 10:15 AM FOUNDRY METALLURGIST Appointment Department of Radiation Oncology in [place] [address] [place] [address] Sima Hall M.D. 200 [place] [phone] 08/06/2025 10:15 AM FOUNDRY METALLURGIST Appointment Department of Radiation Oncology in [address] [address] Sima Hall M.D. [address] [place] [phone] 08/09/2025 10:15 AM FOUNDRY METALLURGIST Appointment Department of Radiation Oncology in [address] [address] Sima Hall M.D. [address] [place] [phone] 08/10/2025 10:15 AM FOUNDRY METALLURGIST Appointment Department of Radiation Oncology in [address] [address] Sima Hall M.D. [address] [place] [phone] 08/10/2025 10:30 AM FOUNDRY METALLURGIST Appointment Department of Radiation Oncology in [address] [address] Sima Hall M.D. [address] [place] [phone] 08/11/2025 10:15 AM FOUNDRY METALLURGIST Appointment Department of Radiation Oncology in [address] [address] Sima Hall M.D. [address] [place] [phone] 08/16/2025 2:00 PM FOUNDRY METALLURGIST Appointment Department of Radiation Oncology in [place], [place] [address] [place] [phone] Soren Dueñas M.D. [address] [place] [phone] 08/18/2025 1:30 PM FOUNDRY METALLURGIST Appointment Department of Radiation Oncology in [address] [address] Soren Dueñas M.D. [address] [place] [phone] 09/20/2025 3:00 PM FOUNDRY METALLURGIST Clinical Communication Virtual Review in [place], [place] 200 [place] [phone] 09/23/2025 9:30 AM FOUNDRY METALLURGIST Comprehensive Visit [facility] in [address] [address] Laila Reed D.O., M.P.H. [address] [place] [phone] 09/24/2025 8:00 AM FOUNDRY METALLURGIST Comprehensive Visit Department of Oncology in [address] [address] Mago Lazcano P.A.-C., M.S. [address] [place] [phone] documented as of this encounter Visit Diagnoses Diagnosis Anemia Iron Deficiency- Primary documented in this encounter Administered Medications Inactive Administered Medications - up to 3 most recent administrations Medication Order MAR Action Action Date Dose Rate Site iohexoL 300 mg iodine/mL solution 1-200 mL (Omnipaque) 1-200 mL, intravenous, Once in imaging, contrast, Starting on Sat06/30/25 at 1245, For 1 dose, Intraprocedure (RAD), Administer 1-200 mL, dosing per medication reference document and per protocol. Given 06/30/2025 12:29 PM CDT 140 mL NaCl 0.9 % bolus 1-100 mL 1-100 mL, intravenous, at 1-100 mL/hr, Administer over 1 Hours, Once in imaging, other, Give per medication reference and protocol, Starting on Sat06/30/25 at 1245, For 1 dose, Intraprocedure (RAD) New Bag 06/30/2025 12:33 PM CDT 50 mL 100 mL/hr sodium chloride 0.9 % injection 10 mL 10 mL, intravenous, As needed, line care, Starting on Sat06/30/25 at 1218, Prior to blood sampling, post blood transfusion, or post blood sampling.Indications:Anemia Iron Deficiency Given 06/30/2025 12:34 PM CDT 10 mL Given 06/30/2025 12:15 PM CDT 10 mL documented in this encounter
--- OUTSIDE RECORDS SUMMARY | 2025-06-30 11:13 | XMS_ITS | Encounter Summary ---
Author Organization [facility] Address [address] [place] [address] Care Team Providers Care Army Officer Name Role Phone Unavailable Primary Care Provider Unavailabl e Reason for Referral * Radiation Therapy (Routine) - Authorized Specialty Diagnoses / Procedures Referred By Contac t Referred To Contact Diagnoses Malignant Neoplasm Of Uterus Endometrial (HCC) Procedures Initial Rad Onc Treatment Planning CT Simulation [place] IMRT RADIOTHERAPY PLAN Sima Monsivais M.D. [address] [place] [address] Phone: tel: fax: [facility] Radiation Oncology at [place] [address] [place] [address] Referral ID Status Reason Start Date Expiration Date V isits Requested Visits Authorized [id number] Authorized 06/30/2025 09/30/2026 2 2 * Radiation Therapy (Routine) - Authorized Specialty Diagnoses / Procedures Referred By Contac t Referred To Contact Diagnoses Malignant Neoplasm Of Uterus Endometrial (HCC) Procedures Initial Rad Onc Treatment Planning CT Simulation [place] IMRT RADIOTHERAPY PLAN Soren Peacock M.D. [address] [place] [address] Phone: tel: fax: [facility] Region Referral ID Status Reason Start Date Expiration Date V isits Requested Visits Authorized [id number] Authorized 06/30/2025 09/24/2026 2 2 Reason for Visit * Radiation Therapy (Routine) - Authorized Specialty Diagnoses / Procedures Referred By Contac t Referred To Contact Diagnoses Malignant Neoplasm Of Uterus Endometrial (HCC) Procedures Initial Rad Onc Treatment Planning CT Simulation [place] IMRT RADIOTHERAPY PLAN Soren Peacock M.D. [address] [place] [address] Phone: tel: fax: [facility] Region Referral ID Status Reason Start Date Expiration Date V isits Requested Visits Authorized [id number] Authorized 06/30/2025 09/24/2026 2 2 Encounter Details Date Type Department Care Team (Latest Contact Info) Description 06/30/2025 12:13 PM CDT - 06/30/2025 12:44 PM CDT Hospital Encounter Department of Radiation Oncology in [place], [place] [address] [place] [address] Sima Hall M.D. [address] [place] [address] Malignant Neoplasm Of Uterus Endometrial (HCC) Social History Tobacco Use Types Packs/Day Years [...] things needed for daily living? No 05/07/2025 [facility] Utilities Answer Date Recorded In the past 12 months has [employer], gas, oil, or water [employer] threatened to shut off services in your home? No 05/07/2025 Housing Stability Answer Date Recorded What is your living situation today? I have a [facility] place to live 05/07/2025 Comments No [...] 05/10/2025 5 documented as of this encounter Procedure Notes * Bisi Sahni - 06/30/2025 1:00 PM CDTAssociated Order(s): Initial Rad Onc Treatment Planning CT Simulation Pre-Procedure Diagnose(s): Malignant Neoplasm Of Uterus Endometrial (HCC) Post-Procedure Diagnose(s): Malignant Neoplasm Of Uterus Endometrial (HCC) Initial Rad Onc Treatment Planning CT Simulation [...] imaging was appropriate and completed without incident. International Trade Compliance Manager use:No Cosigned by Sima Hall M.D. at 06/30/2025 12:44 PM CDT Associated attestation - Sima Hall M.D. - 06/30/2025 12:44 PM CDT I was present during all critical and bowden portions of the procedure(s) and/or immediately availableto furnish services the entire duration. See note for details. documented in this encounter Plan of Treatment Upcoming Encounters Date Type Department Care Team (Latest Contact Info) Description 08/04/2025 3:15 PM CLINICAL ANALYST Appointment Department of Radiation Oncology in [address] [phone] Sima Hall M.D. [address] [place] [phone] 08/05/2025 10:15 AM CLINICAL ANALYST Appointment Department of Radiation Oncology in [address] [phone] Sima Hall M.D. [address] [place] [phone] 08/06/2025 10:15 AM CLINICAL ANALYST Appointment Department of Radiation Oncology in [address] [address] Sima Hall M.D. [address] [place] [phone] 08/09/2025 10:15 AM CLINICAL ANALYST Appointment Department of Radiation Oncology in [address] [address] Sima Hall M.D. [address] [place] [phone] 08/10/2025 10:15 AM CLINICAL ANALYST Appointment Department of Radiation Oncology in [address] [place] [address] Sima Hall M.D. [address] [place] [phone] 08/10/2025 10:30 AM CLINICAL ANALYST Appointment Department of Radiation Oncology in [address] [address] Sima Hall M.D. [address] [place] [phone] 08/11/2025 10:15 AM CLINICAL ANALYST Appointment Department of Radiation Oncology in [place] [address] [place] [address] Sima Hall M.D. [address] [place] [phone] 08/16/2025 2:00 PM CLINICAL ANALYST Appointment Department of Radiation Oncology in [place], [place] [address] [place] [phone] Soren Dueñas M.D. [address] [place] [phone] 08/18/2025 1:30 PM CLINICAL ANALYST Appointment Department of Radiation Oncology in [place], [place] [address] [place] [phone] Soren Dueñas M.D. [address] [place] [phone] 09/20/2025 3:00 PM CLINICAL ANALYST Clinical Communication Virtual Review in [place], [place] [address] [place] [address] 09/23/2025 9:30 AM CLINICAL ANALYST Comprehensive Visit [facility] in [place], [place] [address] [place] [phone] Laila Reed D.O., M.P.H. [address] [place] [address] 09/24/2025 8:00 AM CLINICAL ANALYST Comprehensive Visit Department of Oncology in [place], [place] [address] [place] [address] Mago Lazcano P.A.-C., M.S. [address] [place] [address] documented as of this encounter Procedures Procedure Name Priority Date/Time Associated Diagnosis Comments INITIAL RAD ONC TREATMENT PLANNING CT SIMULATION Routine 06/30/2025 1:00 PM CDT Malignant Neoplasm Of Uterus Endometrial (HCC) INITIAL RAD ONC TREATMENT PLANNING CT SIMULATION Routine 06/30/2025 12:13 PM CDT Malignant Neoplasm Of Uterus Endometrial (HCC) documented in this encounter Results * Initial Rad Onc Treatment Planning CT Simulation (06/30/2025 1:00 PM CDT) Narrative [facility] - 06/30/2025 1:00 PM CDT Sima Hall [...] planning. CT images were transferred to the [employer] treatment planning system, after a reference isocenter was determined and marked. Segmentation and treatment planning will take place prior to treatment delivery. Patient set up and imaging was appropriate and completed without incident. International Trade Compliance Manager use:No us Sima Hall M.D. RADIATION ONCOLOGY ORDERA BLES Final Result Performing Organization Address [facility] Co de Phone Number TIFFANIE RODRIGUEZ na * Initial Rad Onc Treatment Planning CT Simulation (06/30/2025 12:13 PM CDT) us Soren Dueñas M.D. RADIATION ONCOLOGY ORDERA BLES Final Result Performing Organization Address [facility] de Phone Number TIFFANIE RODRIGUEZ na documented in this encounter Visit Diagnoses Diagnosis Malignant Neoplasm Of Uterus Endometrial (HCC) documented in this encounter
--- OUTSIDE RECORDS SUMMARY | 2025-07-07 13:13 | XMS_ITS | Encounter Summary ---
Author Organization [facility] Address [address] [place] [address] Care Team Providers Care Chocolate Refining Roller Name Role Phone Unavailable Primary Care Provider Unavailabl e Reason for Visit * Radiation Therapy (Routine) - Authorized Specialty Diagnoses / Procedures Referred By Alicia ferguson Referred To Contact Diagnoses Malignant Neoplasm Of Uterus Endometrial (HCC) Procedures Prior Auth Rad Tx [place] IMRT COMPLEX [place] GUIDANCE FOR LOC RAD TX [place] IMRT RADIOTHERAPY PLAN IMRT Soren Dueñas M.D. [address] [place] [phone] Phone: tel: fax: [facility] Referral ID Status Reason Start Date Expiration Date V isits Requested Visits Authorized [id number] Authorized 07/05/2025 10/03/2025 25 25 Encounter Details Date Type Department Care Team (Late st Contact Info) Description 07/07/2025 1:13 PM [facility] [[email or web address] Hospital Encounter Department of Radiation Oncology in [place], [place] [address] [place] [phone] Sima Hall M.D. [address] [place] [phone] Social History Tobacco Use Types Packs/Day Years [...] things needed for daily living? No 05/07/2025 [facility] Utilities Answer Date Recorded In the past 12 months has [employer] electric, gas, oil, or water company threatened to shut off services in your home? No 05/07/2025 Housing Stability Answer Date Recorded What is your living situation today? I have a [facility] place to live 05/07/2025 Comments No [...] on file documented as of this encounter Plan of Treatment Upcoming Encounters Date Type Department Care Team (Latest Contact Info) Description 08/04/2025 3:15 PM WEAVING PROFESSOR Appointment Department of Radiation Oncology in [place], [place] [address] [place] [address] Sima Hall M.D. [address] [place] [phone] 08/05/2025 10:15 AM WEAVING PROFESSOR Appointment Department of Radiation Oncology in [place], [place] [address] [place] [address] Sima Hall M.D. [address] [place] [phone] 08/06/2025 10:15 AM WEAVING PROFESSOR Appointment Department of Radiation Oncology in [address] [phone] iSma Hall M.D. [address] [place] [phone] 08/09/2025 10:15 AM WEAVING PROFESSOR Appointment Department of Radiation Oncology in [place], [place] [address] [place] [phone] Sima Hall M.D. [address] [place] [phone] 08/10/2025 10:15 AM WEAVING PROFESSOR Appointment Department of Radiation Oncology in [address] [address] Sima Hall M.D. [address] [place] [phone] 08/10/2025 10:30 AM WEAVING PROFESSOR Appointment Department of Radiation Oncology in [address] [phone] Sima Hall M.D. [address] [place] [phone] 08/11/2025 10:15 AM WEAVING PROFESSOR Appointment Department of Radiation Oncology in [place] [address] [place] [address] Sima Hall M.D. [address] [place] [phone] 08/16/2025 2:00 PM WEAVING PROFESSOR Appointment Department of Radiation Oncology in [place], [place] [address] [place] [phone] Soren Dueñas M.D. [address] [place] [phone] 08/18/2025 1:30 PM WEAVING PROFESSOR Appointment Department of Radiation Oncology in [place], [place] [address] [place] [phone] Soren Dueñas M.D. [address] [place] [phone] 09/20/2025 3:00 PM WEAVING PROFESSOR Clinical Communication Virtual Review in [place], [place] [address] [place] [phone] 09/23/2025 9:30 AM WEAVING PROFESSOR Comprehensive Visit [facility] in [place], [place] [address] [place] [phone] Laila Reed D.O., M.P.H. [address] [place] [phone] 09/24/2025 8:00 AM WEAVING PROFESSOR Comprehensive Visit Department of Oncology in [place], [place] [address] [place] [phone] Mago Lazcano P.A.-C., M.S. [address] [place] [phone] documented as of this encounter Visit Diagnoses Not on filedocumented in this encounter
--- OUTSIDE RECORDS SUMMARY | 2025-07-08 10:19 | XMS_ITS | Encounter Summary ---
Author Organization [facility] Address [address] [place] [address] Care Team Providers Care Teaching Music Lessons Name Role Phone Unavailable Primary Care Provider Unavailabl e Reason for Visit * Radiation Therapy (Routine) - Authorized Specialty Diagnoses / Procedures Referred By Alicia ferguson Referred To Contact Diagnoses Malignant Neoplasm Of Uterus Endometrial (HCC) Procedures Prior Auth Rad Tx [place] IMRT COMPLEX [place] GUIDANCE FOR LOC RAD TX [place] IMRT RADIOTHERAPY PLAN IMRT Soren Dueñas M.D. [address] [place] [phone] Phone: tel: fax: [facility] Referral ID Status Reason Start Date Expiration Date V isits Requested Visits Authorized [id number] Authorized 07/05/2025 10/03/2025 25 25 Encounter Details Date Type Department Care Team (Late st Contact Info) Description 07/08/2025 10:19 AM [facility] Hospital Encounter Department of Radiation Oncology in [place], [place] [address] [place] [phone] Sima Hall M.D. [address] [place] [phone] Social History Tobacco Use Types Packs/Day Years [...] things needed for daily living? No 05/07/2025 [facility] Utilities Answer Date Recorded In the past 12 months has [employer] electric, gas, oil, or water company threatened to shut off services in your home? No 05/07/2025 Housing Stability Answer Date Recorded What is your living situation today? I have a [facility] place to live 05/07/2025 Comments [...] (Latest Contact Info) Description 08/04/2025 3:15 PM CARTON GLUING MACHINE OPERATOR Appointment Department of Radiation Oncology in [place], [place] [address] [place] [phone] Sima Hall M.D. [address] [place] [phone] 08/05/2025 10:15 AM CARTON GLUING MACHINE OPERATOR Appointment Department of Radiation Oncology in [place], [place] [address] [place] [address] Sima Hall M.D. [address] [place] [phone] 08/06/2025 10:15 AM CARTON GLUING MACHINE OPERATOR Appointment Department of Radiation Oncology in [address] [phone] Sima Hall M.D. [address] [place] [phone] 08/09/2025 10:15 AM CARTON GLUING MACHINE OPERATOR Appointment Department of Radiation Oncology in [place], [place] [address] [place] [phone] Sima Hall M.D. [address] [place] [phone] 08/10/2025 10:15 AM CARTON GLUING MACHINE OPERATOR Appointment Department of Radiation Oncology in [address] [phone] Sima Hall M.D. [address] [place] [phone] 08/10/2025 10:30 AM CARTON GLUING MACHINE OPERATOR Appointment Department of Radiation Oncology in [address] [phone] Sima Hall M.D. [address] [place] [phone] 08/11/2025 10:15 AM CARTON GLUING MACHINE OPERATOR Appointment Department of Radiation Oncology in [place] [address] [place] [address] Sima Hall M.D. [address] [place] [phone] 08/16/2025 2:00 PM CARTON GLUING MACHINE OPERATOR Appointment Department of Radiation Oncology in [place], [place] [address] [place] [phone] Soren Dueñas M.D. [address] [place] [phone] 08/18/2025 1:30 PM CARTON GLUING MACHINE OPERATOR Appointment Department of Radiation Oncology in [place], [place] [address] [place] [phone] Soren Dueñas M.D. [address] [place] [phone] 09/20/2025 3:00 PM CARTON GLUING MACHINE OPERATOR Clinical Communication Virtual Review in [place], [place] 200 [place] [phone] 09/23/2025 9:30 AM CARTON GLUING MACHINE OPERATOR Comprehensive Visit [facility] in [place], [place] [address] [place] [phone] Laila Reed D.O., M.P.H. [address] [place] [phone] 09/24/2025 8:00 AM CARTON GLUING MACHINE OPERATOR Comprehensive Visit Department of Oncology in [place], [place] [address] [place] [phone] Mago Lazcano P.A.-C., M.S. [address] [place] [phone] documented as of this encounter Visit Diagnoses Not on filedocumented in this encounter
--- OUTSIDE RECORDS SUMMARY | 2025-07-09 15:05 | XMS_ITS | Encounter Summary ---
Author Organization [facility] Address [address] [place] [address] Care Team Providers Care Stull Installer Name Role Phone Unavailable Primary Care Provider Unavailabl e Reason for Visit * Radiation Therapy (Routine) - Authorized Specialty Diagnoses / Procedures Referred By Alicia ferguson Referred To Contact Diagnoses Malignant Neoplasm Of Uterus Endometrial (HCC) Procedures Prior Auth Rad Tx NM IMRT COMPLEX NM GUIDANCE FOR LOC RAD TX NM IMRT RADIOTHERAPY PLAN IMRT Soren Dueñas M.D. [address] [place] [phone] Phone: tel: fax: [facility] Referral ID Status Reason Start Date Expiration Date V isits Requested Visits Authorized [id number] Authorized 07/05/2025 10/03/2025 25 25 Encounter Details Date Type Department Care Team (Late st Contact Info) Description 07/09/2025 3:05 PM [facility] Hospital Encounter Department of Radiation Oncology in [place], [place] [address] [place] [phone] Sima Hall M.D. [address] [place] [address] [phone] Social History Tobacco Use Types Packs/Day Years [...] things needed for daily living? No 05/07/2025 [facility] Utilities Answer Date Recorded In the past 12 months has [employer] electric, gas, oil, or water company threatened to shut off services in your home? No 05/07/2025 Housing Stability Answer Date Recorded What is your living situation today? I have a [facility] place to live 05/07/2025 Comments No [...] (Latest Contact Info) Description 08/04/2025 3:15 PM TOW CAR DRIVER Appointment Department of Radiation Oncology in [place], [place] [address] [place] [phone] Sima Hall M.D. [address] [place] [phone] 08/05/2025 10:15 AM TOW CAR DRIVER Appointment Department of Radiation Oncology in [place], [place] [address] [place] [phone] Sima Hall M.D. [address] [place] [phone] 08/06/2025 10:15 AM TOW CAR DRIVER Appointment Department of Radiation Oncology in [address] [phone] Sima Hall M.D. [address] [place] [phone] 08/09/2025 10:15 AM TOW CAR DRIVER Appointment Department of Radiation Oncology in [place], [place] [address] [place] [phone] Sima Hall M.D. [address] [place] [phone] 08/10/2025 10:15 AM TOW CAR DRIVER Appointment Department of Radiation Oncology in [address] [phone] Sima Hall M.D. [address] [place] [phone] 08/10/2025 10:30 AM TOW CAR DRIVER Appointment Department of Radiation Oncology in [address] [phone] Sima Hall M.D. [address] [place] [phone] 08/11/2025 10:15 AM TOW CAR DRIVER Appointment Department of Radiation Oncology in [place] [address] [place] [phone] Sima Hall M.D. [address] [place] [phone] 08/16/2025 2:00 PM TOW CAR DRIVER Appointment Department of Radiation Oncology in [place], [place] [address] [place] [phone] Soren Dueñas M.D. [address] [place] [phone] 08/18/2025 1:30 PM TOW CAR DRIVER Appointment Department of Radiation Oncology in [place], [place] [address] [place] [phone] Soren Dueñas M.D. [address] [place] [phone] 09/20/2025 3:00 PM TOW CAR DRIVER Clinical Communication Virtual Review in [place], [place] 200 [place] [phone] 09/23/2025 9:30 AM TOW CAR DRIVER Comprehensive Visit [facility] in [place], [place] [address] [place] [phone] Laila Reed D.O., M.P.H. [address] [place] [phone] 09/24/2025 8:00 AM TOW CAR DRIVER Comprehensive Visit Department of Oncology in [place], [place] [address] [place] [phone] Mago Lazcano P.A.-C., M.S. [address] [place] [phone] documented as of this encounter Visit Diagnoses Not on filedocumented in this encounter
--- OUTSIDE RECORDS SUMMARY | 2025-07-12 10:01 | XMS_ITS | Encounter Summary ---
Author Organization [facility] Address [address] [place] [address] Care Team Providers Care Plc Technician Name Role Phone Unavailable Primary Care Provider Unavailabl e Reason for Visit * Radiation Therapy (Routine) - Authorized Specialty Diagnoses / Procedures Referred By Alicia ferguson Referred To Contact Diagnoses Malignant Neoplasm Of Uterus Endometrial (HCC) Procedures Prior Auth Rad Tx OK IMRT COMPLEX OK GUIDANCE FOR LOC RAD TX OK IMRT RADIOTHERAPY PLAN IMRT Soren Dueñas M.D. [address] [place] [phone] Phone: tel: fax: [facility] Referral ID Status Reason Start Date Expiration Date V isits Requested Visits Authorized [id number] Authorized 07/05/2025 10/03/2025 25 25 Encounter Details Date Type Department Care Team (Late st Contact Info) Description 07/12/2025 10:01 AM [facility] Hospital Encounter Department of Radiation Oncology in [place], [place] [address] [place] [phone] Sima Hall M.D. [address] [place] [address] [phone] Social History Tobacco Use Types Packs/Day Years [...] things needed for daily living? No 05/07/2025 [facility] Utilities Answer Date Recorded In the past 12 months has [employer] electric, gas, oil, or water company threatened to shut off services in your home? No 05/07/2025 Housing Stability Answer Date Recorded What is your living situation today? I have a [employer] place to live 05/07/2025 Comments No Sex [...] (Latest Contact Info) Description 08/04/2025 3:15 PM GAS INSPECTOR Appointment Department of Radiation Oncology in [place], [place] [address] [place] [phone] Sima Hall M.D. [address] [place] [phone] 08/05/2025 10:15 AM GAS INSPECTOR Appointment Department of Radiation Oncology in [place], [place] [address] [place] [address] Sima Hall M.D. [address] [place] [phone] 08/06/2025 10:15 AM GAS INSPECTOR Appointment Department of Radiation Oncology in [address] [phone] Sima Hall M.D. [address] [place] [phone] 08/09/2025 10:15 AM GAS INSPECTOR Appointment Department of Radiation Oncology in [place], [place] [address] [place] [phone] Sima Hall M.D. [address] [place] [phone] 08/10/2025 10:15 AM GAS INSPECTOR Appointment Department of Radiation Oncology in [address] [phone] Sima Hall M.D. [address] [place] [phone] 08/10/2025 10:30 AM GAS INSPECTOR Appointment Department of Radiation Oncology in [address] [phone] Sima Hall M.D. [address] [place] [phone] 08/11/2025 10:15 AM GAS INSPECTOR Appointment Department of Radiation Oncology in [place] [address] [place] [address] Sima Hall M.D. [address] [place] [phone] 08/16/2025 2:00 PM GAS INSPECTOR Appointment Department of Radiation Oncology in [place], [place] [address] [place] [phone] Soren Dueñas M.D. [address] [place] [address] [phone] 08/18/2025 1:30 PM GAS INSPECTOR Appointment Department of Radiation Oncology in [place], [place] [address] [place] [phone] Soren Dueñas M.D. [address] [place] [phone] 09/20/2025 3:00 PM GAS INSPECTOR Clinical Communication Virtual Review in [place], [place] 200 [place] [phone] 09/23/2025 9:30 AM GAS INSPECTOR Comprehensive Visit [facility] in [place], [place] [address] [place] [phone] Laila eRed D.O., M.P.H. [address] [place] [phone] 09/24/2025 8:00 AM GAS INSPECTOR Comprehensive Visit Department of Oncology in [place], [place] [address] [place] [phone] Mago Lazcano P.A.-C., M.S. [address] [place] [phone] documented as of this encounter Visit Diagnoses Not on filedocumented in this encounter
--- OUTSIDE RECORDS SUMMARY | 2025-07-13 09:59 | XMS_ITS | Encounter Summary ---
Author Organization [facility] Address [address] [place] [address] Care Team Providers Care Lithograph Printer Name Role Phone Unavailable Primary Care Provider Unavailabl e Reason for Visit * Radiation Therapy (Routine) - Authorized Specialty Diagnoses / Procedures Referred By Alicia ferguson Referred To Contact Diagnoses Malignant Neoplasm Of Uterus Endometrial (HCC) Procedures Prior Auth Rad Tx NV IMRT COMPLEX NV GUIDANCE FOR LOC RAD TX NV IMRT RADIOTHERAPY PLAN IMRT Soren Dueñas M.D. [address] [place] [phone] Phone: tel: fax: [facility] Referral ID Status Reason Start Date Expiration Date V isits Requested Visits Authorized [id number] Authorized 07/05/2025 10/03/2025 25 25 Encounter Details Date Type Department Care Team (Late st Contact Info) Description 07/13/2025 9:[address] [facility] Hospital Encounter Department of Radiation Oncology in [place], [place] [address] [place] [phone] Sima Hall M.D. [address] [place] [address] [phone] Social History Tobacco Use Types Packs/Day Years [...] things needed for daily living? No 05/07/2025 [facility] Utilities Answer Date Recorded In the past 12 months has [employer] electric, gas, oil, or water company threatened to shut off services in your home? No 05/07/2025 Housing Stability Answer Date Recorded What is your living situation today? I have a [facility] place to live 05/07/2025 Comments No [...] (Latest Contact Info) Description 08/04/2025 3:15 PM PUTTY AND PATCH WORKER Appointment Department of Radiation Oncology in [place], [place] [address] [place] [phone] Sima Hall M.D. [address] [place] [phone] 08/05/2025 10:15 AM PUTTY AND PATCH WORKER Appointment Department of Radiation Oncology in [place], [place] [address] [place] [address] Sima Hall M.D. [address] [place] [phone] 08/06/2025 10:15 AM PUTTY AND PATCH WORKER Appointment Department of Radiation Oncology in [address] [phone] Sima Hall M.D. [address] [place] [phone] 08/09/2025 10:15 AM PUTTY AND PATCH WORKER Appointment Department of Radiation Oncology in [place], [place] [address] [place] [phone] Sima Hall M.D. [address] [place] [phone] 08/10/2025 10:15 AM PUTTY AND PATCH WORKER Appointment Department of Radiation Oncology in [address] [phone] Sima Hall M.D. [address] [place] [phone] 08/10/2025 10:30 AM PUTTY AND PATCH WORKER Appointment Department of Radiation Oncology in [address] [phone] Sima Hall M.D. [address] [place] [phone] 08/11/2025 10:15 AM PUTTY AND PATCH WORKER Appointment Department of Radiation Oncology in [place] [address] [place] [address] Sima Hall M.D. [address] [place] [phone] 08/16/2025 2:00 PM PUTTY AND PATCH WORKER Appointment Department of Radiation Oncology in [place], [place] [address] [place] [phone] Soren Dueñas M.D. [address] [place] [phone] 08/18/2025 1:30 PM PUTTY AND PATCH WORKER Appointment Department of Radiation Oncology in [place], [place] [address] [place] [phone] Soren Dueñas M.D. [address] [place] [phone] 09/20/2025 3:00 PM PUTTY AND PATCH WORKER Clinical Communication Virtual Review in [place], [place] 200 [place] [phone] 09/23/2025 9:30 AM PUTTY AND PATCH WORKER Comprehensive Visit [facility] in [place], [place] [address] [place] [phone] Laila Reed D.O., M.P.H. [address] [place] [phone] 09/24/2025 8:00 AM PUTTY AND PATCH WORKER Comprehensive Visit Department of Oncology in [place], [place] [address] [place] [phone] Mago Lazcano P.A.-C., M.S. [address] [place] [phone] documented as of this encounter Visit Diagnoses Not on filedocumented in this encounter
--- OUTSIDE RECORDS SUMMARY | 2025-07-13 10:00 | XMS_ITS | Encounter Summary ---
Author Organization [facility] Address [address] [place] [address] Care Team Providers Care Harness Racing Handicapper Name Role Phone Unavailable Primary Care Provider Unavailabl e Reason for Referral * Radiation Therapy (Routine) - Authorized Specialty Diagnoses / Procedures Referred By Alicia ferguson Referred To Contact Diagnoses Malignant Neoplasm Of Uterus Endometrial (HCC) Procedures Management Visit Soren Dueñas M.D. [address] [place] [address] Phone: tel: fax: [facility] Referral ID Status Reason Start Date Expiration Date V isits Requested Visits Authorized [id number] Authorized 06/24/2025 09/24/2026 5 5 N DANCE INSTRUCTOR Reason for Visit * Radiation Therapy (Routine) - Authorized Specialty Diagnoses / Procedures Referred By Alicia ferguson Referred To Contact Diagnoses Malignant Neoplasm Of Uterus Endometrial (HCC) Procedures Management Visit Soren Dueñas M.D. 200 [place] [address] Phone: tel: fax: [facility] Referral ID Status Reason Start Date Expiration Date V isits Requested Visits Authorized [id number] Authorized 06/24/2025 09/24/2026 5 5 Encounter Details Date Type Department Care Team (Latest Contact Info) Description 07/13/2025 10:00 AM LATIN DANCE INSTRUCTOR - 07/13/2025 3:36 PM LATIN DANCE INSTRUCTOR Hospital Encounter Department of Radiation Oncology in [place], [place] [address] [place] [phone] Sima Hall M.D. [address] [place] [address] Malignant Neoplasm Of Uterus Endometrial (HCC) Social [...] things needed for daily living? No 05/07/2025 [facility] Utilities Answer Date Recorded In the past 12 months has e electric, gas, oil, or water company threatened to shut off services in your home? No 05/07/2025 Housing Stability Answer Date Recorded What is your living situation today? I have a [facility] place to live 05/07/2025 Comments No [...] Sign Reading Time Taken Comments Blood Pressure 133/84 07/13/2025 10:40 AM LATIN DANCE INSTRUCTOR Pulse 73 07/13/2025 10:40 AM LATIN DANCE INSTRUCTOR Temperature 36.3 C (97.3 F) 07/13/2025 10:40 AM LATIN DANCE INSTRUCTOR Respiratory Rate - - Oxygen Saturation - - Inhaled Oxygen Concentration - - Weight 80.6 kg (177 lb 11.1 oz) 025 10:40 AM LATIN DANCE INSTRUCTOR Height - - Body Mass Index 31.68 05/31/2025 1:02 PM CDT documented in this [...] (six) hours as needed for pain. 05/10/2025 ibuprofen 200 mg tablet Take 3 tablets (600 mg total) by mouth every 6 (six) hours as needed for pain. 05/10/2025 5 oxyCODONE (Roxicodone) 5 mg immediate release tabletIndication s:Acute Pain Take 1 tablet (5 mg total) by mouth every 4 (four) hours as needed for pain (not relieved by acetaminophen and ibuprofen) Indication: Acute Pain. 5 tablet 05/10/2025 2:09 PM CDT 05/10/2025 documented as of this encounter Progress Notes * Noni Montiel R.N. - 07/13/2025 10:30 AM CST SUBJECTIVE REASON FOR VISIT Evaluation for side effects while receiving radiation treatment for 1. Malignant Neoplasm Of Uterus Endometrial (HCC) SUPERVISED BY: Sima Hall M.D. HISTORY OF PRESENT ILLNESS April Nicole is a 55 y.o. female with resected Stage IIIC1 endometrial carcinoma of the uterus . Treatment Course: 1xPelvis Plan ID Fractions Dose / Fraction (cGy) Dose Treated (cGy) Dose Planned (cGy) First Treatment Last Treatment Elapsed Days [id number] 07/07/2025 07/13/2025 6 Course Summary 07/07/2025 07/13/2025 6 The patient was seen and examined today with Dr. Hall. The patient reports that she woke up feeling nauseated this morning. She notes that she does experience nausea when she is anxious. Patient reports she does not currently have an antinausea medication but manages it with aromatherapy. Patient denies bowel or bladder related changes at this time. She notes mild fatigue with treatment. CONCURRENT THERAPY None PATIENT REPORTED SYMPTOM SCREEN FATIGUE (Scale: 0 = no fatigue; 10 = worst fatigue you can imagine): 3 PAIN (Scale: 0 = no pain; 10 = worst pain you can imagine): 2 OVERALL QUALITY OF LIFE (Scale: 0 = as bad as can be; 10 = as good as can be): 8 OBJECTIVE BP 133/84 (BP Location: Right arm, Patient Position: Sitting, Cuff Size: Regular) Pulse 73 Temp36.3 ??C (Temporal) Wt 80.6 kg BMI 31.68 kg/m?? PHYSICAL EXAM General: Alert and oriented in no apparent distress. ASSESSMENT / PLAN #1 FIGO stage IIIC1 (pT3a, pN1mi, cM0) endometrial cancer s/p exploratory laparotomy, total abdominal hysterectomy, bilateral salpingo-oophorectomy, bilateral pelvic sentinel lymph node biopsies, right para-aortic lymphadenectomy, omentectomy, and appendectomy on May 07, 2025 #2 Radiation to pelvic lymph nodes and vaginal cuff initiated on July 07, 2025; anticipated dateof completion August 11, 2025 #3 Brachytherapy scheduled August 16, 2025 and August 18, 2025 The patient is tolerating radiation treatment well overall. Discussed with patient prescription nausea medication if needed for ongoing nausea. Patient will reach out to us if she wants this. She cancontinue to manage nausea with aromatherapy and could also trial peppermint/puja tea or lozenges.Reviewed constipation management sheet with patient as patient did not have an empty rectum for treatment today despite daily bowel movements. Patient will start with 1-2 tablets of Senakot-S tonightand increase if needed. Dr. Hall was in for any questions or concerns. She will continue with radiation treatment as planned. She can contact our care team with any questions or concerns. Signed by: Noni Montiel R.N. 07/13/2025 1:01 PM LATIN DANCE INSTRUCTOR Cosigned by Sima Hall M.D. at 07/13/2025 3:36 PM LATIN DANCE INSTRUCTOR N DANCE INSTRUCTOR N DANCE INSTRUCTOR Associated attestation - Sima Hall M.D. - 07/13/2025 3:36 PM LATIN DANCE INSTRUCTOR I saw and evaluated the patient and participated in the [place] portions of the service. I reviewed thedocumentation of Ms. Noni Montiel RN and agree with the findings and plan. The patient appears well on exam. We will continue with radiation as planned and monitor weekly. Sima Hall M.D., 07/13/2025 documented in this encounter Plan of Treatment Upcoming Encounters Date Type Department Care Team (Latest Contact Info) Description 08/04/2025 3:15 PM LATIN DANCE INSTRUCTOR Appointment Department of Radiation Oncology in [address] [phone] Sima Hall M.D. [address] [place] [phone] 08/05/2025 10:15 AM LATIN DANCE INSTRUCTOR Appointment Department of Radiation Oncology in [address] [phone] Sima Hall M.D. [address] [place] [phone] 08/06/2025 10:15 AM LATIN DANCE INSTRUCTOR Appointment Department of Radiation Oncology in [address] [phone] Sima Hall M.D. [address] [place] [phone] 08/09/2025 10:15 AM LATIN DANCE INSTRUCTOR Appointment Department of Radiation Oncology in [address] [phone] Sima Hall M.D. [address] [place] [phone] 08/10/2025 10:15 AM LATIN DANCE INSTRUCTOR Appointment Department of Radiation Oncology in [address] [phone] Sima Hall M.D. [address] [place] [phone] 08/10/2025 10:30 AM LATIN DANCE INSTRUCTOR Appointment Department of Radiation Oncology in [address] [phone] Sima Hall M.D. [address] [place] [phone] 08/11/2025 10:15 AM LATIN DANCE INSTRUCTOR Appointment Department of Radiation Oncology in [address] [place] [address] Sima Hall M.D. [address] [place] [phone] 08/16/2025 2:00 PM LATIN DANCE INSTRUCTOR Appointment Department of Radiation Oncology in [place], [place] [address] [place] [phone] Soren Dueñas M.D. [address] [place] [phone] 08/18/2025 1:30 PM LATIN DANCE INSTRUCTOR Appointment Department of Radiation Oncology in [address] [phone] Soren Dueñas M.D. [address] [place] [phone] 09/20/2025 3:00 PM LATIN DANCE INSTRUCTOR Clinical Communication Virtual Review in [place], [place] 200 [place] [address] 09/23/2025 9:30 AM LATIN DANCE INSTRUCTOR Comprehensive Visit [facility] in [address] [phone] Laila Reed D.O., M.P.H. [address] [place] [phone] 09/24/2025 8:00 AM LATIN DANCE INSTRUCTOR Comprehensive Visit Department of Oncology in [place], [place] [address] [place] [phone] Mago Lazcano P.A.-C., M.S. [address] [place] [phone] Scheduled Orders Name Type Priority Associated Diagnoses Orde r Schedule Management Visit Radiation Oncology Routine Malignant Neoplasm Of Uterus Endometrial (HCC) Once for 1 Occurrences starting 07/13/2025 until 07/13/2025 documented as of this encounter Visit Diagnoses Diagnosis Malignant Neoplasm Of Uterus Endometrial (HCC) documented in this encounter
--- OUTSIDE RECORDS SUMMARY | 2025-07-14 09:36 | XMS_ITS | Encounter Summary ---
Author Organization [facility] Address [address] [place] [address] Care Team Providers Care Senior Architectural Designer Name Role Phone Unavailable Primary Care Provider Unavailabl e Reason for Visit * Radiation Therapy (Routine) - Authorized Specialty Diagnoses / Procedures Referred By Alicia ferguson Referred To Contact Diagnoses Malignant Neoplasm Of Uterus Endometrial (HCC) Procedures Prior Auth Rad Tx RI IMRT COMPLEX RI GUIDANCE FOR LOC RAD TX RI IMRT RADIOTHERAPY PLAN IMRT Soren Dueñas M.D. [address] [place] [phone] Phone: tel: fax: [facility] Referral ID Status Reason Start Date Expiration Date V isits Requested Visits Authorized [id number] Authorized 07/05/2025 10/03/2025 25 25 Encounter Details Date Type Department Care Team (Late st Contact Info) Description 07/14/2025 9:36 AM [facility] Hospital Encounter Department of Radiation Oncology in [place], [place] [address] [place] [address] Sima Hall M.D. [address] [place] [address] [phone] Social History Tobacco Use Types Packs/Day Years [...] things needed for daily living? No 05/07/2025 [facility] Utilities Answer Date Recorded In the past 12 months has [employer] electric, gas, oil, or water company threatened to shut off services in your home? No 05/07/2025 Housing Stability Answer Date Recorded What is your living situation today? I have a [facility] place to live 05/07/2025 Comments No [...] (Latest Contact Info) Description 08/04/2025 3:15 PM GARDE MANAGER Appointment Department of Radiation Oncology in [place], [place] [address] [place] [address] Sima Hall M.D. [address] [place] [phone] 08/05/2025 10:15 AM GARDE MANAGER Appointment Department of Radiation Oncology in [place], [place] [address] [place] [address] Sima Hall M.D. [address] [place] [phone] 08/06/2025 10:15 AM GARDE MANAGER Appointment Department of Radiation Oncology in [address] [phone] Sima Hall M.D. [address] [place] [phone] 08/09/2025 10:15 AM GARDE MANAGER Appointment Department of Radiation Oncology in [place], [place] [address] [place] [phone] Sima Hall M.D. [address] [place] [phone] 08/10/2025 10:15 AM GARDE MANAGER Appointment Department of Radiation Oncology in [address] [phone] Sima Hall M.D. [address] [place] [phone] 08/10/2025 10:30 AM GARDE MANAGER Appointment Department of Radiation Oncology in [address] [phone] Sima Hall M.D. [address] [place] [phone] 08/11/2025 10:15 AM GARDE MANAGER Appointment Department of Radiation Oncology in [place] [address] [place] [address] Sima Hall M.D. [address] [place] [phone] 08/16/2025 2:00 PM GARDE MANAGER Appointment Department of Radiation Oncology in [place], [place] [address] [place] [phone] Soren Dueñas M.D. [address] [place] [phone] 08/18/2025 1:30 PM GARDE MANAGER Appointment Department of Radiation Oncology in [place], [place] [address] [place] [phone] Soren Dueñas M.D. [address] [place] [phone] 09/20/2025 3:00 PM GARDE MANAGER Clinical Communication Virtual Review in [place], [place] 200 [place] [phone] 09/23/2025 9:30 AM GARDE MANAGER Comprehensive Visit [facility] in [place], [place] [address] [place] [phone] Laila Reed D.O., M.P.H. [address] [place] [phone] 09/24/2025 8:00 AM GARDE MANAGER Comprehensive Visit Department of Oncology in [place], [place] [address] [place] [phone] Mago Lazcano P.A.-C., M.S. [address] [place] [phone] documented as of this encounter Visit Diagnoses Not on filedocumented in this encounter
--- OUTSIDE RECORDS SUMMARY | 2025-07-15 10:00 | XMS_ITS | Encounter Summary ---
Author Organization [facility] Address [address] [place] [address] Care Team Providers Care Water Meter Installer Name Role Phone Unavailable Primary Care Provider Unavailabl e Reason for Visit * Radiation Therapy (Routine) - Authorized Specialty Diagnoses / Procedures Referred By Alicia ferguson Referred To Contact Diagnoses Malignant Neoplasm Of Uterus Endometrial (HCC) Procedures Prior Auth Rad Tx [place] IMRT COMPLEX [place] GUIDANCE FOR LOC RAD TX [place] IMRT RADIOTHERAPY PLAN IMRT Soren Dueñas M.D. [address] [place] [phone] Phone: tel: fax: [facility] Referral ID Status Reason Start Date Expiration Date V isits Requested Visits Authorized [id number] Authorized 07/05/2025 10/03/2025 25 25 Encounter Details Date Type Department Care Team (Late st Contact Info) Description 07/15/2025 10:00 AM [facility] Hospital Encounter Department of Radiation Oncology in [place], [place] [address] [place] [phone] Sima Hall M.D. [address] [place] [address] [phone] Social History Tobacco Use Types Packs/Day Years [...] things needed for daily living? No 05/07/2025 [facility] Utilities Answer Date Recorded In the past 12 months has [employer] electric, gas, oil, or water company threatened to shut off services in your home? No 05/07/2025 Housing Stability Answer Date Recorded What is your living situation today? I have a [facility] place to live 05/07/2025 Comments No [...] (Latest Contact Info) Description 08/04/2025 3:15 PM PIG STICKER Appointment Department of Radiation Oncology in [place], [place] [address] [place] [phone] Sima Hall M.D. [address] [place] [phone] 08/05/2025 10:15 AM PIG STICKER Appointment Department of Radiation Oncology in [place], [place] [address] [place] [address] Sima Hall M.D. [address] [place] [phone] 08/06/2025 10:15 AM PIG STICKER Appointment Department of Radiation Oncology in [address] [phone] Sima Hall M.D. [address] [place] [phone] 08/09/2025 10:15 AM PIG STICKER Appointment Department of Radiation Oncology in [place], [place] [address] [place] [phone] Sima Hall M.D. [address] [place] [phone] 08/10/2025 10:15 AM PIG STICKER Appointment Department of Radiation Oncology in [address] [phone] Sima Hall M.D. [address] [place] [phone] 08/10/2025 10:30 AM PIG STICKER Appointment Department of Radiation Oncology in [address] [phone] Sima Hall M.D. [address] [place] [phone] 08/11/2025 10:15 AM PIG STICKER Appointment Department of Radiation Oncology in [place] [address] [place] [address] Sima Hall M.D. [address] [place] [phone] 08/16/2025 2:00 PM PIG STICKER Appointment Department of Radiation Oncology in [place], [place] [address] [place] [phone] Soren Dueñas M.D. [address] [place] [phone] 08/18/2025 1:30 PM PIG STICKER Appointment Department of Radiation Oncology in [place], [place] [address] [place] [phone] Soren Dueñas M.D. [address] [place] [phone] 09/20/2025 3:00 PM PIG STICKER Clinical Communication Virtual Review in [place], [place] 200 [place] [phone] 09/23/2025 9:30 AM PIG STICKER Comprehensive Visit [facility] in [place], [place] [address] [place] [phone] Laila Reed D.O., M.P.H. [address] [place] [phone] 09/24/2025 8:00 AM PIG STICKER Comprehensive Visit Department of Oncology in [place], [place] [address] [place] [address] [phone] Mago Lazcano P.A.-C., M.S. [address] [place] [phone] documented as of this encounter Visit Diagnoses Not on filedocumented in this encounter
--- OUTSIDE RECORDS SUMMARY | 2025-07-16 09:36 | XMS_ITS | Encounter Summary ---
Author Organization [facility] Address [address] [place] [address] Care Team Providers Care Copier Operator Name Role Phone Unavailable Primary Care Provider Unavailabl e Reason for Visit * Radiation Therapy (Routine) - Authorized Specialty Diagnoses / Procedures Referred By Alicia ferguson Referred To Contact Diagnoses Malignant Neoplasm Of Uterus Endometrial (HCC) Procedures Prior Auth Rad Tx LA IMRT COMPLEX LA GUIDANCE FOR LOC RAD TX LA IMRT RADIOTHERAPY PLAN IMRT Soren Dueñas M.D. [address] [place] [phone] Phone: tel: fax: [facility] Referral ID Status Reason Start Date Expiration Date V isits Requested Visits Authorized [id number] Authorized 07/05/2025 10/03/2025 25 25 Encounter Details Date Type Department Care Team (Late st Contact Info) Description 07/16/2025 9:36 AM [facility] Hospital Encounter Department of Radiation Oncology in [place], [place] [address] [place] [address] Sima Hall M.D. [address] [place] [address] [phone] Social History Tobacco Use Types Packs/Day Years [...] needed for daily living? No 05/07/2025 [facility] Utilities Answer Date Recorded In the past 12 months has [employer] electric, gas, oil, or water company threatened to shut off services in your home? No 05/07/2025 Housing Stability Answer Date Recorded What is your living situation today? I have a [facility] place to live 05/07/2025 Comments No [...] (Latest Contact Info) Description 08/04/2025 3:15 PM HEAD KNITTING MACHINE FIXER Appointment Department of Radiation Oncology in [place], [place] [address] [place] [phone] Sima Hall M.D. [address] [place] [phone] 08/05/2025 10:15 AM HEAD KNITTING MACHINE FIXER Appointment Department of Radiation Oncology in [place], [place] [address] [place] [address] Sima Hall M.D. [address] [place] [phone] 08/06/2025 10:15 AM HEAD KNITTING MACHINE FIXER Appointment Department of Radiation Oncology in [address] [phone] Sima Hall M.D. [address] [place] [phone] 08/09/2025 10:15 AM HEAD KNITTING MACHINE FIXER Appointment Department of Radiation Oncology in [place], [place] [address] [place] [phone] Sima Hall M.D. [address] [place] [phone] 08/10/2025 10:15 AM HEAD KNITTING MACHINE FIXER Appointment Department of Radiation Oncology in [address] [phone] Sima Hall M.D. [address] [place] [phone] 08/10/2025 10:30 AM HEAD KNITTING MACHINE FIXER Appointment Department of Radiation Oncology in [address] [phone] Sima Hall M.D. [address] [place] [phone] 08/11/2025 10:15 AM HEAD KNITTING MACHINE FIXER Appointment Department of Radiation Oncology in [place] [address] [place] [address] Sima Hall M.D. [address] [place] [address] [phone] 08/16/2025 2:00 PM HEAD KNITTING MACHINE FIXER Appointment Department of Radiation Oncology in [place], [place] [address] [place] [phone] Soren Dueñas M.D. [address] [place] [address] [phone] 08/18/2025 1:30 PM HEAD KNITTING MACHINE FIXER Appointment Department of Radiation Oncology in [place], [place] [address] [place] [phone] Soren Dueñas M.D. [address] [place] [phone] 09/20/2025 3:00 PM HEAD KNITTING MACHINE FIXER Clinical Communication Virtual Review in [place], [place] 200 [place] [phone] 09/23/2025 9:30 AM HEAD KNITTING MACHINE FIXER Comprehensive Visit [facility] in [place], [place] [address] [place] [address] [phone] Laila Reed D.O., M.P.H. [address] [place] [phone] 09/24/2025 8:00 AM HEAD KNITTING MACHINE FIXER Comprehensive Visit Department of Oncology in [place], [place] [address] [place] [phone] Mago Lazcano P.A.-C., M.S. [address] [place] [address] [phone] documented as of this encounter Visit Diagnoses Not on filedocumented in this encounter
--- OUTSIDE RECORDS SUMMARY | 2025-07-19 10:03 | XMS_ITS | Encounter Summary ---
Author Organization [facility] Address [address] [place] [address] Care Team Providers Care Post Doctoral Researcher Name Role Phone Unavailable Primary Care Provider Unavailabl e Reason for Visit * Radiation Therapy (Routine) - Authorized Specialty Diagnoses / Procedures Referred By Alicia ferguson Referred To Contact Diagnoses Malignant Neoplasm Of Uterus Endometrial (HCC) Procedures Prior Auth Rad Tx LA IMRT COMPLEX LA GUIDANCE FOR LOC RAD TX LA IMRT RADIOTHERAPY PLAN IMRT Soren Dueñas M.D. [address] [place] [phone] Phone: tel: fax: [facility] Referral ID Status Reason Start Date Expiration Date V isits Requested Visits Authorized [id number] Authorized 07/05/2025 10/03/2025 25 25 Encounter Details Date Type Department Care Team (Late st Contact Info) Description 07/19/2025 10:03 AM [facility] Hospital Encounter Department of Radiation Oncology in [place], [place] [address] [place] [phone] Sima Hall M.D. [address] [place] [address] [phone] Social History Tobacco Use Types Packs/Day Years [...] things needed for daily living? No 05/07/2025 [facility] Utilities Answer Date Recorded In the past 12 months has [employer] electric, gas, oil, or water company threatened to shut off services in your home? No 05/07/2025 Housing Stability Answer Date Recorded What is your living situation today? I have a [facility] place to live 05/07/2025 Comments [...] (Latest Contact Info) Description 08/04/2025 3:15 PM RELIGIOUS EDUCATOR Appointment Department of Radiation Oncology in [place], [place] [address] [place] [address] Sima Hall M.D. [address] [place] [phone] 08/05/2025 10:15 AM RELIGIOUS EDUCATOR Appointment Department of Radiation Oncology in [place], [place] [address] [place] [address] Sima Hall M.D. [address] [place] [phone] 08/06/2025 10:15 AM RELIGIOUS EDUCATOR Appointment Department of Radiation Oncology in [address] [phone] Sima Hall M.D. [address] [place] [phone] 08/09/2025 10:15 AM RELIGIOUS EDUCATOR Appointment Department of Radiation Oncology in [place], [place] [address] [place] [phone] Sima Hall M.D. [address] [place] [phone] 08/10/2025 10:15 AM RELIGIOUS EDUCATOR Appointment Department of Radiation Oncology in [address] [address] Sima Hall M.D. [address] [place] [phone] 08/10/2025 10:30 AM RELIGIOUS EDUCATOR Appointment Department of Radiation Oncology in [address] [phone] Sima Hall M.D. [address] [place] [phone] 08/11/2025 10:15 AM RELIGIOUS EDUCATOR Appointment Department of Radiation Oncology in [place] [address] [place] [address] Sima Hall M.D. [address] [place] [address] [phone] 08/16/2025 2:00 PM RELIGIOUS EDUCATOR Appointment Department of Radiation Oncology in [place], [place] [address] [place] [phone] Soren Dueñas M.D. [address] [place] [address] [phone] 08/18/2025 1:30 PM RELIGIOUS EDUCATOR Appointment Department of Radiation Oncology in [place], [place] [address] [place] [phone] Soren Dueñas M.D. [address] [place] [phone] 09/20/2025 3:00 PM RELIGIOUS EDUCATOR Clinical Communication Virtual Review in [place], [place] 200 [place] [phone] 09/23/2025 9:30 AM RELIGIOUS EDUCATOR Comprehensive Visit [facility] in [place], [place] [address] [place] [phone] Laila Reed D.O., M.P.H. [address] [place] [phone] 09/24/2025 8:00 AM RELIGIOUS EDUCATOR Comprehensive Visit Department of Oncology in [place], [place] [address] [place] [phone] Mago Lazcano P.A.-C., M.S. [address] [place] [phone] documented as of this encounter Visit Diagnoses Not on filedocumented in this encounter
--- OUTSIDE RECORDS SUMMARY | 2025-07-20 10:04 | XMS_ITS | Encounter Summary ---
Author Organization [facility] Address [address] [place] [address] Care Team Providers Care Senior Staff Specialized Employment Name Role Phone Unavailable Primary Care Provider Unavailabl e Reason for Referral * Radiation Therapy (Routine) - Authorized Specialty Diagnoses / Procedures Referred By Alicia ferguson Referred To Contact Diagnoses Malignant Neoplasm Of Uterus Endometrial (HCC) Procedures Management Visit Soren Dueñas M.D. [address] [place] [address] Phone: tel: fax: [facility] Referral ID Status Reason Start Date Expiration Date V isits Requested Visits Authorized [id number] Authorized 06/24/2025 09/24/2026 5 5 SKILLS CONSULTANT Reason for Visit * Radiation Therapy (Routine) - Authorized Specialty Diagnoses / Procedures Referred By Alicia ferguson Referred To Contact Diagnoses Malignant Neoplasm Of Uterus Endometrial (HCC) Procedures Management Visit Soren Dueñas M.D. [address] [place] [address] Phone: tel: fax: [facility] Referral ID Status Reason Start Date Expiration Date V isits Requested Visits Authorized [id number] Authorized 06/24/2025 09/24/2026 5 5 Encounter Details Date Type Department Care Team (Latest Contact Info) Description 07/20/2025 10:04 AM LIFE SKILLS CONSULTANT - 07/22/2025 6:39 PM LIFE SKILLS CONSULTANT Hospital Encounter Department of Radiation Oncology in [place], [place] [address] [place] [phone] Porfirio Gross M.D. [address] [place] [address] Malignant Neoplasm Of Uterus Endometrial (HCC) Social [...] things needed for daily living? No 05/07/2025 [facility] Utilities Answer Date Recorded In the past 12 months has e electric, gas, oil, or water company threatened to shut off services in your home? No 05/07/2025 Housing Stability Answer Date Recorded What is your living situation today? I have a [facility] place to live 05/07/2025 Comments [...] Sign Reading Time Taken Comments Blood Pressure 142/86 07/20/2025 10:33 AM LIFE SKILLS CONSULTANT Pulse 82 07/20/2025 10:33 AM LIFE SKILLS CONSULTANT Temperature 36.1 C (97 F) 07/20/2025 10:33 AM LIFE SKILLS CONSULTANT Respiratory Rate - - Oxygen Saturation - - Inhaled Oxygen Concentration - - Weight 80.3 kg (177 lb 0.5 oz) 07/20/2025 10:33 AM LIFE SKILLS CONSULTANT Height - - Body Mass Index 31.56 05/31/2025 1:02 PM CDT documented in this encounter Medications at Time of Discharge buPROPion XL (Wellbutrin XL) 150 mg 24 hr tablet Take 150 mg by mouth daily. Lactobacillus acidophilus (Probiotic) 10 billion cell capsule Take 1 capsule by mouth daily. multivitamin-mica miner blasting als-lutein (Multivitamin 50 Plus) tablet Take 1 tablet by mouth daily. omega-3 fatty acids 1,000 mg capsule Take 1 g by mouth daily. rivaroxaban (Xarelto) 20 mg tablet Take 20 mg by mouth daily with evening meal. 03/31/2025 sennosides-docusat e sodium (Senokot-S) 8.6-50 mg per tablet Take 1 tablet by mouth daily. Until bowels return to normal 05/10/2025 venlafaxine XR (Effexor-XR) 75 mg 24 hr capsule Take 75 mg by mouth daily. documented as of this encounter Progress Notes * Noni Montiel R.N. - 07/20/2025 10:15 AM CST SUBJECTIVE REASON FOR VISIT Evaluation for side effects while receiving radiation treatment for 1. Malignant Neoplasm Of Uterus Endometrial (HCC) SUPERVISED BY: Porfirio Gross M.D. HISTORY OF PRESENT ILLNESS April Nicole is a 55 y.o. female with resected Stage IIIC1 endometrial carcinoma of the uterus. Treatment Course: 1xPelvis Plan ID Fractions Dose / Fraction (cGy) Dose Treated (cGy) Dose Planned (cGy) First Treatment Last Treatment Elapsed Days [id number] 180 1620 4500 07/07/2025 07/19/2025 12 Course Summary 07/07/2025 07/19/2025 12 The patient was seen and examined today with Dr. Gross The patient reports feeling well overall. She states that she has not experienced recurrent nausea.She reports a mild increase in fatigue since initiating radiation therapy. She denies any changes in urination. She has noticed softer stools over the past week and has discontinued Senokot-S. CONCURRENT THERAPY None PATIENT REPORTED SYMPTOM SCREEN FATIGUE (Scale: 0 = no fatigue; 10 = worst fatigue you can imagine): 3 PAIN (Scale: 0 = no pain; 10 = worst pain you can imagine): 2 OVERALL QUALITY OF LIFE (Scale: 0 = as bad as can be; 10 = as good as can be): 8 OBJECTIVE There were no vitals taken for this visit. PHYSICAL EXAM General: Alert and oriented in [...] is tolerating radiation treatment well overall. Discussed the use of OTC Imodium shouldshe develop diarrhea. Dr. Gross was in for any questions or concerns. She will continue with radiation treatment as planned. She can contact our care team with any questions or concerns. Signed by: Noni Montiel R.N. 07/20/2025 10:19 AM LIFE SKILLS CONSULTANT Cosigned by Porfirio Gross M.D. at 07/22/2025 6:39 PM LIFE SKILLS CONSULTANT SKILLS CONSULTANT SKILLS CONSULTANT Associated attestation - Porfirio Gross M.D. - 07/22/2025 6:39 PM LIFE SKILLS CONSULTANT ATTESTATION FOR MANAGEMENT VISIT I saw and evaluated the patient and participated in the bowden portions of the service including medical decision making as noted above. I reviewed the documentation of Ms. Noni Montiel RN and agree with the findings and plan. The patient appears well on exam. We will continue with radiation as planned and monitor weekly. Porfirio Gross M.D., 07/22/2025 documented in this encounter Plan of Treatment Upcoming Encounters Date Type Department Care Team (Latest Contact Info) Description 08/04/2025 3:15 PM LIFE SKILLS CONSULTANT Appointment Department of Radiation Oncology in [address] [phone] Sima Hall M.D. [address] [place] [phone] 08/05/2025 10:15 AM LIFE SKILLS CONSULTANT Appointment Department of Radiation Oncology in [address] [address] Sima Hall M.D. [address] [place] [phone] 08/06/2025 10:15 AM LIFE SKILLS CONSULTANT Appointment Department of Radiation Oncology in [address] [address] Sima Hall M.D. [address] [place] [phone] 08/09/2025 10:15 AM LIFE SKILLS CONSULTANT Appointment Department of Radiation Oncology in [address] [address] Sima Hall M.D. [address] [place] [phone] 08/10/2025 10:15 AM LIFE SKILLS CONSULTANT Appointment Department of Radiation Oncology in [place], [place] [address] [place] [phone] Sima Hall M.D. [address] [place] [phone] 08/10/2025 10:30 AM LIFE SKILLS CONSULTANT Appointment Department of Radiation Oncology in [place], [place] [address] [place] [phone] Sima Hall M.D. [address] [place] [phone] 08/11/2025 10:15 AM LIFE SKILLS CONSULTANT Appointment Department of Radiation Oncology in [address] [address] Sima Hall M.D. [address] [place] [phone] 08/16/2025 2:00 PM LIFE SKILLS CONSULTANT Appointment Department of Radiation Oncology in [address] [phone] Soren Dueñas M.D. [address] [place] [phone] 08/18/2025 1:30 PM LIFE SKILLS CONSULTANT Appointment Department of Radiation Oncology in [place], [place] [address] [place] [phone] Soren Dueñas M.D. [address] [place] [phone] 09/20/2025 3:00 PM LIFE SKILLS CONSULTANT Clinical Communication Virtual Review in [place], [place] [address] [place] [address] 09/23/2025 9:30 AM LIFE SKILLS CONSULTANT Comprehensive Visit [facility] in [place], [place] [address] [place] [address] Laila Reed D.O., M.P.H. [address] [place] [phone] 09/24/2025 8:00 AM LIFE SKILLS CONSULTANT Comprehensive Visit Department of Oncology in [place], [place] [address] [place] [phone] Mago Lazcano P.A.-C., M.S. [address] [place] [phone] Scheduled Orders Name Type Priority Associated Diagnoses Orde r Schedule Management Visit Radiation Oncology Routine Malignant Neoplasm Of Uterus Endometrial (HCC) Once for 1 Occurrences starting 07/20/2025 until 07/20/2025 documented as of this encounter Visit Diagnoses Diagnosis Malignant Neoplasm Of Uterus Endometrial (HCC) documented in this encounter
--- OUTSIDE RECORDS SUMMARY | 2025-07-20 10:04 | XMS_ITS | Encounter Summary ---
Author Organization [facility] Address [address] [place] [address] Care Team Providers Care Hr Internship Name Role Phone Unavailable Primary Care Provider Unavailabl e Encounter Details Date Type Department Care Team (Latest Contact Info) Description 07/20/2025 10:04 AM PUBLIC WORKS INSPECTOR - 07/20/2025 11:10 AM [facility] Hospital Encounter Department of Radiation Oncology in [place], [place] [address] [place] [address] Sima Hall M.D. [address] [place] [phone] Noni Montiel R.N. [address] [place] [phone] Malignant Neoplasm Of Uterus Endometrial (HCC) (Primary [...] Recorded In the past 12 months has [employer], gas, oil, or water company threatened to shut off services in your home? No 05/07/2025 Housing Stability Answer Date Recorded What is your living situation today? I have a [facility] place to live 05/07/2025 Comments No [...] capsule Take 1 capsule by mouth daily. multivitamin-bar examiner als-lutein (Multivitamin 50 Plus) tablet Take 1 [...] Notes * Noni Montiel R.N. - 07/20/2025 10:30 AM CST Patient was educated on side effects of radiation therapy. Their questions were answered to the best of my ability. The patient was encouraged to contact the team at any point, with questions or concerns. IC WORKS INSPECTOR documented in this encounter Plan of Treatment Upcoming Encounters Date Type Department Care Team (Latest Contact Info) Description 08/04/2025 3:15 PM PUBLIC WORKS INSPECTOR Appointment Department of Radiation Oncology in [address] [phone] Sima Hall M.D. [address] [place] [phone] 08/05/2025 10:15 AM PUBLIC WORKS INSPECTOR Appointment Department of Radiation Oncology in [address] [address] Sima Hall M.D. [address] [place] [phone] 08/06/2025 10:15 AM PUBLIC WORKS INSPECTOR Appointment Department of Radiation Oncology in [address] [phone] Sima Hall M.D. [address] [place] [phone] 08/09/2025 10:15 AM PUBLIC WORKS INSPECTOR Appointment Department of Radiation Oncology in [address] [phone] Sima Hall M.D. [address] [place] [phone] 08/10/2025 10:15 AM PUBLIC WORKS INSPECTOR Appointment Department of Radiation Oncology in [place], [place] [address] [place] [address] Sima Hall M.D. [address] [place] [phone] 08/10/2025 10:30 AM PUBLIC WORKS INSPECTOR Appointment Department of Radiation Oncology in [place], [place] [address] [place] [address] Sima Hall M.D. [address] [place] [phone] 08/11/2025 10:15 AM PUBLIC WORKS INSPECTOR Appointment Department of Radiation Oncology in [place], [place] [address] [place] [address] Sima Hall M.D. [address] [place] [phone] 08/16/2025 2:00 PM PUBLIC WORKS INSPECTOR Appointment Department of Radiation Oncology in [place], [place] [address] [place] [phone] Soren Dueñas M.D. [address] [place] [phone] 08/18/2025 1:30 PM PUBLIC WORKS INSPECTOR Appointment Department of Radiation Oncology in [place], [place] [address] [place] [phone] Soren Dueñas M.D. [address] [place] [phone] 09/20/2025 3:00 PM PUBLIC WORKS INSPECTOR Clinical Communication Virtual Review in [place], [place] 200 [place] [address] 09/23/2025 9:30 AM PUBLIC WORKS INSPECTOR Comprehensive Visit [facility]opause and [facility] Clinic in [place], [place] [address] [place] [phone] Laila Reed D.O., M.P.H. [address] [place] [phone] 09/24/2025 8:00 AM PUBLIC WORKS INSPECTOR Comprehensive Visit Department of Oncology in [place], [place] [address] [place] [phone] Mago Lazcano P.A.-C., M.S. [address] [place] [phone] documented as of this encounter Visit Diagnoses Diagnosis Malignant Neoplasm Of Uterus Endometrial (HCC)- Primary documented in this encounter
--- OUTSIDE RECORDS SUMMARY | 2025-07-20 10:04 | XMS_ITS | Encounter Summary ---
Author Organization [facility] Address [address] [place] [address] Care Team Providers Care Supervisor Sandblaster Name Role Phone Unavailable Primary Care Provider Unavailabl e Reason for Visit * Radiation Therapy (Routine) - Authorized Specialty Diagnoses / Procedures Referred By Alicia ferguson Referred To Contact Diagnoses Malignant Neoplasm Of Uterus Endometrial (HCC) Procedures Prior Auth Rad Tx MA IMRT COMPLEX MA GUIDANCE FOR LOC RAD TX MA IMRT RADIOTHERAPY PLAN IMRT Soren Dueñas M.D. [address] [place] [phone] Phone: tel: fax: [facility] Referral ID Status Reason Start Date Expiration Date V isits Requested Visits Authorized [id number] Authorized 07/05/2025 10/03/2025 25 25 Encounter Details Date Type Department Care Team (Late st Contact Info) Description 07/20/2025 10:04 AM [facility] Hospital Encounter Department of Radiation Oncology in [place], [place] [address] [place] [phone] Sima Hall M.D. [address] [place] [phone] Social History Tobacco Use Types Packs/Day Years [...] things needed for daily living? No 05/07/2025 [facility] Utilities Answer Date Recorded In the past 12 months has [employer] electric, gas, oil, or water company threatened to shut off services in your home? No 05/07/2025 Housing Stability Answer Date Recorded What is your living situation today? I have a [facility] place to live 05/07/2025 Comments No Sex [...] (Latest Contact Info) Description 08/04/2025 3:15 PM ORACLE FORMS DEVELOPER Appointment Department of Radiation Oncology in [place], [place] [address] [place] [phone] Sima Hall M.D. [address] [place] [phone] 08/05/2025 10:15 AM ORACLE FORMS DEVELOPER Appointment Department of Radiation Oncology in [place], [place] [address] [place] [address] Sima Hall M.D. [address] [place] [phone] 08/06/2025 10:15 AM ORACLE FORMS DEVELOPER Appointment Department of Radiation Oncology in [address] [phone] Sima Hall M.D. [address] [place] [phone] 08/09/2025 10:15 AM ORACLE FORMS DEVELOPER Appointment Department of Radiation Oncology in [place], [place] [address] [place] [phone] Sima Hall M.D. [address] [place] [phone] 08/10/2025 10:15 AM ORACLE FORMS DEVELOPER Appointment Department of Radiation Oncology in [address] [address] Sima Hall M.D. [address] [place] [phone] 08/10/2025 10:30 AM ORACLE FORMS DEVELOPER Appointment Department of Radiation Oncology in [address] [phone] Sima Hall M.D. [address] [place] [phone] 08/11/2025 10:15 AM ORACLE FORMS DEVELOPER Appointment Department of Radiation Oncology in [place] [address] [place] [address] iSma Hall M.D. [address] [place] [phone] 08/16/2025 2:00 PM ORACLE FORMS DEVELOPER Appointment Department of Radiation Oncology in [place], [place] [address] [place] [phone] Soren Dueñas M.D. [address] [place] [phone] 08/18/2025 1:30 PM ORACLE FORMS DEVELOPER Appointment Department of Radiation Oncology in [place], [place] [address] [place] [phone] Soren Dueñas M.D. [address] [place] [phone] 09/20/2025 3:00 PM ORACLE FORMS DEVELOPER Clinical Communication Virtual Review in [place], [place] 200 [place] [phone] 09/23/2025 9:30 AM ORACLE FORMS DEVELOPER Comprehensive Visit [facility] in [place], [place] [address] [place] [phone] Laila Reed D.O., M.P.H. [address] [place] [phone] 09/24/2025 8:00 AM ORACLE FORMS DEVELOPER Comprehensive Visit Department of Oncology in [place], [place] [address] [place] [phone] Mago Lazcano P.A.-C., M.S. [address] [place] [phone] documented as of this encounter Visit Diagnoses Not on filedocumented in this encounter
--- OUTSIDE RECORDS SUMMARY | 2025-07-21 09:47 | XMS_ITS | Encounter Summary ---
Author Organization [facility] Address [address] [place] [address] Care Team Providers Care Resume Writer Name Role Phone Unavailable Primary Care Provider Unavailabl e Reason for Visit * Radiation Therapy (Routine) - Authorized Specialty Diagnoses / Procedures Referred By Alicia ferguson Referred To Contact Diagnoses Malignant Neoplasm Of Uterus Endometrial (HCC) Procedures Prior Auth Rad Tx TX IMRT COMPLEX [place] GUIDANCE FOR LOC RAD TX [place] IMRT RADIOTHERAPY PLAN IMRT Soren Dueñas M.D. [address] [place] [phone] Phone: tel: fax: [facility] Referral ID Status Reason Start Date Expiration Date V isits Requested Visits Authorized [id number] Authorized 07/05/2025 10/03/2025 25 25 Encounter Details Date Type Department Care Team (Late st Contact Info) Description 07/21/2025 9:47 AM [facility] Hospital Encounter Department of Radiation Oncology in [place], [place] [address] [place] [phone] Sima Hall M.D. [address] [place] [phone] Social History Tobacco Use Types Packs/Day Years [...] things needed for daily living? No 05/07/2025 [facility] Utilities Answer Date Recorded In the past 12 months has [employer] electric, gas, oil, or water company threatened to shut off services in your home? No 05/07/2025 Housing Stability Answer Date Recorded What is your living situation today? I have a [facility] place to live 05/07/2025 Comments No [...] (Latest Contact Info) Description 08/04/2025 3:15 PM CHAIN MORTISER OPERATOR Appointment Department of Radiation Oncology in [place], [place] [address] [place] [address] Sima Hall M.D. [address] [place] [phone] 08/05/2025 10:15 AM CHAIN MORTISER OPERATOR Appointment Department of Radiation Oncology in [place], [place] [address] [place] [address] Sima Hall M.D. [address] [place] [phone] 08/06/2025 10:15 AM CHAIN MORTISER OPERATOR Appointment Department of Radiation Oncology in [address] [phone] Sima Hall M.D. [address] [place] [phone] 08/09/2025 10:15 AM CHAIN MORTISER OPERATOR Appointment Department of Radiation Oncology in [place], [place] [address] [place] [phone] Sima Hall M.D. [address] [place] [phone] 08/10/2025 10:15 AM CHAIN MORTISER OPERATOR Appointment Department of Radiation Oncology in [address] [phone] Sima Hall M.D. [address] [place] [phone] 08/10/2025 10:30 AM CHAIN MORTISER OPERATOR Appointment Department of Radiation Oncology in [address] [phone] Sima Hall M.D. [address] [place] [phone] 08/11/2025 10:15 AM CHAIN MORTISER OPERATOR Appointment Department of Radiation Oncology in [place] [address] [place] [address] Sima Hall M.D. [address] [place] [phone] 08/16/2025 2:00 PM CHAIN MORTISER OPERATOR Appointment Department of Radiation Oncology in [place], [place] [address] [place] [phone] Soren Dueñas M.D. [address] [place] [phone] 08/18/2025 1:30 PM CHAIN MORTISER OPERATOR Appointment Department of Radiation Oncology in [place], [place] [address] [place] [phone] Soren Dueñas M.D. [address] [place] [phone] 09/20/2025 3:00 PM CHAIN MORTISER OPERATOR Clinical Communication Virtual Review in [place], [place] 200 [place] [phone] 09/23/2025 9:30 AM CHAIN MORTISER OPERATOR Comprehensive Visit [facility] in [place], [place] [address] [place] [phone] Laila Reed D.O., M.P.H. [address] [place] [phone] 09/24/2025 8:00 AM CHAIN MORTISER OPERATOR Comprehensive Visit Department of Oncology in [place], [place] [address] [place] [phone] Mago Lazcano P.A.-C., M.S. [address] [place] [phone] documented as of this encounter Visit Diagnoses Not on filedocumented in this encounter
--- OUTSIDE RECORDS SUMMARY | 2025-07-22 10:02 | XMS_ITS | Encounter Summary ---
Author Organization [facility] Address [address] [place] [address] Care Team Providers Care Psychiatric Nursing Aide Name Role Phone Unavailable Primary Care Provider Unavailabl e Reason for Visit * Radiation Therapy (Routine) - Authorized Specialty Diagnoses / Procedures Referred By Alicia ferguson Referred To Contact Diagnoses Malignant Neoplasm Of Uterus Endometrial (HCC) Procedures Prior Auth Rad Tx [place] IMRT COMPLEX [place] GUIDANCE FOR LOC RAD [place] IMRT RADIOTHERAPY PLAN IMRT Soren Dueñas M.D. [address] [place] [phone] Phone: tel: fax: [facility] Referral ID Status Reason Start Date Expiration Date V isits Requested Visits Authorized [id number] Authorized 07/05/2025 10/03/2025 25 25 Encounter Details Date Type Department Care Team (Late st Contact Info) Description 07/22/2025 10:02 AM [facility] Hospital Encounter Department of Radiation Oncology in [place], [place] [address] [place] [address] Sima Hall M.D. [address] [place] [address] [phone] Social History Tobacco Use Types Packs/Day Years [...] things needed for daily living? No 05/07/2025 [facility] Utilities Answer Date Recorded In the past 12 months has [employer] electric, gas, oil, or water company threatened to shut off services in your home? No 05/07/2025 Housing Stability Answer Date Recorded What is your living situation today? I have a [facility] place to live 05/07/2025 Comments No [...] (Latest Contact Info) Description 08/04/2025 3:15 PM REAMING MACHINE OPERATOR FOR PLASTIC Appointment Department of Radiation Oncology in [place], [place] [address] [place] [phone] Sima Hall M.D. [address] [place] [phone] 08/05/2025 10:15 AM REAMING MACHINE OPERATOR FOR PLASTIC Appointment Department of Radiation Oncology in [place], [place] [address] [place] [address] Sima Hall M.D. [address] [place] [phone] 08/06/2025 10:15 AM REAMING MACHINE OPERATOR FOR PLASTIC Appointment Department of Radiation Oncology in [address] [phone] Sima Hall M.D. [address] [place] [phone] 08/09/2025 10:15 AM REAMING MACHINE OPERATOR FOR PLASTIC Appointment Department of Radiation Oncology in [place], [place] [address] [place] [phone] Sima Hall M.D. [address] [place] [phone] 08/10/2025 10:15 AM REAMING MACHINE OPERATOR FOR PLASTIC Appointment Department of Radiation Oncology in [address] [phone] Sima Hall M.D. [address] [place] [phone] 08/10/2025 10:30 AM REAMING MACHINE OPERATOR FOR PLASTIC Appointment Department of Radiation Oncology in [address] [phone] Sima Hall M.D. [address] [place] [phone] 08/11/2025 10:15 AM REAMING MACHINE OPERATOR FOR PLASTIC Appointment Department of Radiation Oncology in [place] [address] [place] [address] Sima Hall M.D. [address] [place] [phone] 08/16/2025 2:00 PM REAMING MACHINE OPERATOR FOR PLASTIC Appointment Department of Radiation Oncology in [place], [place] [address] [place] [phone] Soren Dueñas M.D. [address] [place] [phone] 08/18/2025 1:30 PM REAMING MACHINE OPERATOR FOR PLASTIC Appointment Department of Radiation Oncology in [place], [place] [address] [place] [phone] Soren Dueñas M.D. [address] [place] [phone] 09/20/2025 3:00 PM REAMING MACHINE OPERATOR FOR PLASTIC Clinical Communication Virtual Review in [place], [place] 200 [place] [phone] 09/23/2025 9:30 AM REAMING MACHINE OPERATOR FOR PLASTIC Comprehensive Visit [facility] in [place], [place] [address] [place] [phone] Laila Reed D.O., M.P.H. [address] [place] [phone] 09/24/2025 8:00 AM REAMING MACHINE OPERATOR FOR PLASTIC Comprehensive Visit Department of Oncology in [place], [place] [address] [place] [phone] Mago Lazcano P.A.-C., M.S. [address] [place] [phone] documented as of this encounter Visit Diagnoses Not on filedocumented in this encounter
--- OUTSIDE RECORDS SUMMARY | 2025-07-23 10:01 | XMS_ITS | Encounter Summary ---
Author Organization [facility] Address [address] [place] [address] Care Team Providers Care Political Science Instructor Name Role Phone Unavailable Primary Care Provider Unavailabl e Reason for Visit * Radiation Therapy (Routine) - Authorized Specialty Diagnoses / Procedures Referred By Alicia ferguson Referred To Contact Diagnoses Malignant Neoplasm Of Uterus Endometrial (HCC) Procedures Prior Auth Rad Tx CT IMRT COMPLEX CT GUIDANCE FOR LOC RAD TX CT IMRT RADIOTHERAPY PLAN IMRT Soren Dueñas M.D. [address] [place] [phone] Phone: tel: fax: [facility] Referral ID Status Reason Start Date Expiration Date V isits Requested Visits Authorized [id number] Authorized 07/05/2025 10/03/2025 25 25 Encounter Details Date Type Department Care Team (Late st Contact Info) Description 07/23/2025 10:01 AM [facility] Hospital Encounter Department of Radiation Oncology in [place], [place] [address] [place] [address] Sima Hall M.D. [address] [place] [address] [phone] Social History Tobacco Use Types Packs/Day Years [...] things needed for daily living? No 05/07/2025 [facility] Utilities Answer Date Recorded In the past 12 months has [employer] electric, gas, oil, or water company threatened to shut off services in your home? No 05/07/2025 Housing Stability Answer Date Recorded What is your living situation today? I have a [facility] place to live 05/07/2025 Comments No [...] (Latest Contact Info) Description 08/04/2025 3:15 PM SUPERVISOR TANK STORAGE Appointment Department of Radiation Oncology in [place], [place] [address] [place] [address] Sima Hall M.D. [address] [place] [phone] 08/05/2025 10:15 AM SUPERVISOR TANK STORAGE Appointment Department of Radiation Oncology in [place], [place] [address] [place] [address] Sima Hall M.D. [address] [place] [phone] 08/06/2025 10:15 AM SUPERVISOR TANK STORAGE Appointment Department of Radiation Oncology in [address] [phone] Sima Hall M.D. [address] [place] [phone] 08/09/2025 10:15 AM SUPERVISOR TANK STORAGE Appointment Department of Radiation Oncology in [place], [place] [address] [place] [phone] Sima Hall M.D. [address] [place] [phone] 08/10/2025 10:15 AM SUPERVISOR TANK STORAGE Appointment Department of Radiation Oncology in [address] [phone] Sima Hall M.D. [address] [place] [phone] 08/10/2025 10:30 AM SUPERVISOR TANK STORAGE Appointment Department of Radiation Oncology in [address] [phone] Sima Hall M.D. [address] [place] [phone] 08/11/2025 10:15 AM SUPERVISOR TANK STORAGE Appointment Department of Radiation Oncology in [place] [address] [place] [address] Sima Hall M.D. [address] [place] [phone] 08/16/2025 2:00 PM SUPERVISOR TANK STORAGE Appointment Department of Radiation Oncology in [place], [place] [address] [place] [phone] Soren Dueñas M.D. [address] [place] [phone] 08/18/2025 1:30 PM SUPERVISOR TANK STORAGE Appointment Department of Radiation Oncology in [place], [place] [address] [place] [phone] Soren Dueñas M.D. [address] [place] [phone] 09/20/2025 3:00 PM SUPERVISOR TANK STORAGE Clinical Communication Virtual Review in [place], [place] 200 [place] [phone] 09/23/2025 9:30 AM SUPERVISOR TANK STORAGE Comprehensive Visit [facility] in [place], [place] [address] [place] [phone] Laila Reed D.O., M.P.H. [address] [place] [phone] 09/24/2025 8:00 AM SUPERVISOR TANK STORAGE Comprehensive Visit Department of Oncology in [place], [place] [address] [place] [phone] Mago Lazcano P.A.-C., M.S. [address] [place] [phone] documented as of this encounter Visit Diagnoses Not on filedocumented in this encounter
--- OUTSIDE RECORDS SUMMARY | 2025-07-26 10:04 | XMS_ITS | Encounter Summary ---
Author Organization [facility] Address [address] [place] [address] Care Team Providers Care Foreclosure Field Inspector Name Role Phone Unavailable Primary Care Provider Unavailabl e Reason for Visit * Radiation Therapy (Routine) - Authorized Specialty Diagnoses / Procedures Referred By Alicia ferguson Referred To Contact Diagnoses Malignant Neoplasm Of Uterus Endometrial (HCC) Procedures Prior Auth Rad Tx [place] IMRT COMPLEX [place] GUIDANCE FOR LOC RAD [place] IMRT RADIOTHERAPY PLAN IMRT Soren Dueñas M.D. [address] [place] [phone] Phone: tel: fax: [facility] Referral ID Status Reason Start Date Expiration Date V isits Requested Visits Authorized [id number] Authorized 07/05/2025 10/03/2025 25 25 Encounter Details Date Type Department Care Team (Late st Contact Info) Description 07/26/2025 10:04 AM [facility] Hospital Encounter Department of Radiation Oncology in [place], [place] [address] [place] [phone] Sima Hall M.D. [address] [place] [address] [phone] Social History Tobacco Use Types Packs/Day Years [...] things needed for daily living? No 05/07/2025 [facility] Utilities Answer Date Recorded In the past 12 months has [employer] electric, gas, oil, or water company threatened to shut off services in your home? No 05/07/2025 Housing Stability Answer Date Recorded What is your living situation today? I have a [facility] place to live 05/07/2025 Comments No Sex [...] (Latest Contact Info) Description 08/04/2025 3:15 PM SHIFT NURSE MANAGER Appointment Department of Radiation Oncology in [place], [place] [address] [place] [address] Sima Hall M.D. [address] [place] [phone] 08/05/2025 10:15 AM SHIFT NURSE MANAGER Appointment Department of Radiation Oncology in [place], [place] [address] [place] [address] Sima Hall M.D. [address] [place] [phone] 08/06/2025 10:15 AM SHIFT NURSE MANAGER Appointment Department of Radiation Oncology in [address] [phone] Sima Hall M.D. [address] [place] [phone] 08/09/2025 10:15 AM SHIFT NURSE MANAGER Appointment Department of Radiation Oncology in [place], [place] [address] [place] [phone] Sima Hall M.D. [address] [place] [phone] 08/10/2025 10:15 AM SHIFT NURSE MANAGER Appointment Department of Radiation Oncology in [address] [phone] Sima Hall M.D. [address] [place] [phone] 08/10/2025 10:30 AM SHIFT NURSE MANAGER Appointment Department of Radiation Oncology in [address] [phone] Sima Hall M.D. [address] [place] [phone] 08/11/2025 10:15 AM SHIFT NURSE MANAGER Appointment Department of Radiation Oncology in [place] [address] [place] [address] Sima Hall M.D. [address] [place] [phone] 08/16/2025 2:00 PM SHIFT NURSE MANAGER Appointment Department of Radiation Oncology in [place], [place] [address] [place] [phone] Soren Dueñas M.D. [address] [place] [address] [phone] 08/18/2025 1:30 PM SHIFT NURSE MANAGER Appointment Department of Radiation Oncology in [place], [place] [address] [place] [phone] Soren Dueñas M.D. [address] [place] [phone] 09/20/2025 3:00 PM SHIFT NURSE MANAGER Clinical Communication Virtual Review in [place], [place] 200 [place] [phone] 09/23/2025 9:30 AM SHIFT NURSE MANAGER Comprehensive Visit [facility] in [place], [place] [address] [place] [phone] Laila Reed D.O., M.P.H. [address] [place] [phone] 09/24/2025 8:00 AM SHIFT NURSE MANAGER Comprehensive Visit Department of Oncology in [place], [place] [address] [place] [address] [phone] Mago Lazcano P.A.-C., M.S. [address] [place] [address] [phone] documented as of this encounter Visit Diagnoses Not on filedocumented in this encounter
--- OUTSIDE RECORDS SUMMARY | 2025-07-27 10:04 | XMS_ITS | Encounter Summary ---
Author Organization [facility] Address [address] [place] [address] Care Team Providers Care Automatic Grinding Machine Operator Name Role Phone Unavailable Primary Care Provider Unavailabl e Reason for Visit * Radiation Therapy (Routine) - Authorized Specialty Diagnoses / Procedures Referred By Alicia ferguson Referred To Contact Diagnoses Malignant Neoplasm Of Uterus Endometrial (HCC) Procedures Prior Auth Rad Tx [place] IMRT COMPLEX [place] GUIDANCE FOR LOC RAD TX [place] IMRT RADIOTHERAPY PLAN IMRT Soren Dueñas M.D. [address] [place] [phone] Phone: tel: fax: [facility] Referral ID Status Reason Start Date Expiration Date V isits Requested Visits Authorized [id number] Authorized 07/05/2025 10/03/2025 25 25 Encounter Details Date Type Department Care Team (Late st Contact Info) Description 07/27/2025 10:04 AM [facility] Hospital Encounter Department of Radiation Oncology in [place], [place] [address] [place] [address] Sima Hall M.D. [address] [place] [phone] Social History Tobacco Use Types Packs/Day Years [...] things needed for daily living? No 05/07/2025 [facility] Utilities Answer Date Recorded In the past 12 months has [employer] electric, gas, oil, or water company threatened to shut off services in your home? No 05/07/2025 Housing Stability Answer Date Recorded What is your living situation today? I have a [facility] place to live 05/07/2025 Comments No [...] (Latest Contact Info) Description 08/04/2025 3:15 PM TRAINING ASSISTANT Appointment Department of Radiation Oncology in [place], [place] [address] [place] [phone] Sima Hall M.D. [address] [place] [phone] 08/05/2025 10:15 AM TRAINING ASSISTANT Appointment Department of Radiation Oncology in [place], [place] [address] [place] [address] Sima Hall M.D. [address] [place] [phone] 08/06/2025 10:15 AM TRAINING ASSISTANT Appointment Department of Radiation Oncology in [address] [phone] Sima Hall M.D. [address] [place] [phone] 08/09/2025 10:15 AM TRAINING ASSISTANT Appointment Department of Radiation Oncology in [place], [place] [address] [place] [phone] Sima Hall M.D. [address] [place] [phone] 08/10/2025 10:15 AM TRAINING ASSISTANT Appointment Department of Radiation Oncology in [address] [phone] Sima Hall M.D. [address] [place] [phone] 08/10/2025 10:30 AM TRAINING ASSISTANT Appointment Department of Radiation Oncology in [address] [phone] Sima Hall M.D. [address] [place] [phone] 08/11/2025 10:15 AM TRAINING ASSISTANT Appointment Department of Radiation Oncology in [place] [address] [place] [address] Sima Hall M.D. [address] [place] [address] [phone] 08/16/2025 2:00 PM TRAINING ASSISTANT Appointment Department of Radiation Oncology in [place], [place] [address] [place] [phone] Soren Dueñas M.D. [address] [place] [address] [phone] 08/18/2025 1:30 PM TRAINING ASSISTANT Appointment Department of Radiation Oncology in [place], [place] [address] [place] [phone] Soren Dueñas M.D. [address] [place] [phone] 09/20/2025 3:00 PM TRAINING ASSISTANT Clinical Communication Virtual Review in [place], [place] 200 [place] [phone] 09/23/2025 9:30 AM TRAINING ASSISTANT Comprehensive Visit [facility] in [place], [place] [address] [place] [phone] Laila Reed D.O., M.P.H. [address] [place] [phone] 09/24/2025 8:00 AM TRAINING ASSISTANT Comprehensive Visit Department of Oncology in [place], [place] [address] [place] [address] [phone] Mago Lazcano P.A.-C., M.S. [address] [place] [address] [phone] documented as of this encounter Visit Diagnoses Not on filedocumented in this encounter
--- OUTSIDE RECORDS SUMMARY | 2025-07-27 10:05 | XMS_ITS | Encounter Summary ---
Author Organization [facility] Address [address] [place] [address] Care Team Providers Care Test Technician Name Role Phone Unavailable Primary Care Provider Unavailabl e Reason for Referral * Radiation Therapy (Routine) - Authorized Specialty Diagnoses / Procedures Referred By Alicia ferguson Referred To Contact Diagnoses Malignant Neoplasm Of Uterus Endometrial (HCC) Procedures Management Visit Soren Dueñas M.D. [address] [place] [address] Phone: tel: fax: [facility] Referral ID Status Reason Start Date Expiration Date V isits Requested Visits Authorized [id number] Authorized 06/24/2025 09/24/2026 5 5 SHER FINE DIAMOND DIES Reason for Visit * Radiation Therapy (Routine) - Authorized Specialty Diagnoses / Procedures Referred By Alicia ferguson Referred To Contact Diagnoses Malignant Neoplasm Of Uterus Endometrial (HCC) Procedures Management Visit Soren Dueñas M.D. [address] [place] [address] Phone: tel: fax: [facility] Referral ID Status Reason Start Date Expiration Date V isits Requested Visits Authorized [id number] Authorized 06/24/2025 09/24/2026 5 5 Encounter Details Date Type Department Care Team (Latest Contact Info) Description 07/27/2025 10:05 AM FINISHER FINE DIAMOND DIES - 07/27/2025 5:08 PM FINISH[facility] [employer] Hospital Encounter Department of Radiation Oncology in [place], [place] [address] [place] [phone] Sima Hall M.D. [address] [place] [address] Malignant Neoplasm Of Uterus Endometrial (HCC) Social [...] your living situation today? I have a [facility] place to live 05/07/2025 Comments No [...] Sign Reading Time Taken Comments Blood Pressure 131/85 07/27/2025 11:18 AM FINISH[employer] DIAMOND [employer]IES Pulse 76 07/27/2025 11:18 AM FINISHER FINE DIAMOND DIES Temperature 36.2 C (97.1 F) 07/27/2025 11:18 AM FINISHER FINE DIAMOND DIES Respiratory Rate - - Oxygen Saturation - - Inhaled Oxygen Concentration - - Weight 80.1 kg (176 lb 9.4 oz) 07/27/2025 11:18 AM FINISHER [employer]INE DIAMOND DIES Height - - Body Mass Index 31.49 05/31/2025 1:02 PM CDT documented in this encounter Medications at Time of Discharge buPROPion XL (Wellbutrin XL) 150 mg 24 hr tablet Take 150 mg by mouth daily. Lactobacillus acidophilus (Probiotic) 10 billion cell capsule Take 1 capsule by mouth daily. multivitamin-lead miner blasting als-lutein (Multivitamin 50 Plus) tablet [...] Progress Notes * Noni Montiel R.N. - 07/27/2025 10:30 AM CST SUBJECTIVE REASON FOR VISIT Evaluation for side effects while receiving radiation treatment for 1. Malignant Neoplasm Of Uterus Endometrial (HCC) SUPERVISED BY: Sima Hall M.D. HISTORY OF PRESENT ILLNESS April Niocle is a 55 y.o. female with resected Stage IIIC1 endometrial carcinoma of the uterus. Treatment Course: 1xPelvis Plan ID Fractions Dose / Fraction (cGy) Dose Treated (cGy) Dose Planned (cGy) First Treatment Last Treatment Elapsed Days [id number] 180 2700 4500 07/07/2025 07/27/2025 20 Course Summary 07/07/2025 07/27/2025 20 The patient was seen and examined today with Dr. Hall The patient reports feeling well overall. She states that she has not experienced recurrent nausea.She reports a mild increase in fatigue but is it tolerable. She denies any changes in urination. She continues to have soft stools but denies diarrhea. CONCURRENT THERAPY None PATIENT REPORTED SYMPTOM SCREEN FATIGUE (Scale: 0 = no fatigue; 10 = worst fatigue you can imagine): 3 PAIN (Scale: 0 = no pain; 10 = worst pain you can imagine): 2 OVERALL QUALITY OF LIFE (Scale: 0 = as bad as can be; 10 = as good as can be): 8 OBJECTIVE BP 131/85 (BP Location: Right arm, Patient Position: Sitting, Cuff Size: Regular) Pulse 76 Temp36.2 ??C (Temporal) Wt 80.1 kg BMI 31.49 kg/m?? PHYSICAL EXAM General: Alert and oriented [...] of OTC Imodium shouldshe develop diarrhea. Dr. Hall was in for any questions or concerns. She will continue with radiation treatment as planned. She can contact our care team with any questions or concerns. Signed by: Noni Montiel R.N. 07/27/2025 11:21 AM FINISHER FINE DIAMOND DIES Cosigned by Sima Hall M.D. at 07/27/2025 5:08 PM FINISHER FINE DIAMOND DIES SHER FINE DIAMOND DIES SHER FINE DIAMOND DIES Associated attestation - Sima Hall M.D. - 07/27/2025 5:08 PM FINISHER FINE DIAMOND DIES I saw and evaluated the patient and participated in the bowden portions of the service. I reviewed thedocumentation of Ms. Noni Montiel, [place] and agree with the findings and plan. The patient appears well on exam. We will continue with radiation as planned and monitor weekly. Sima Hall M.D., 07/27/2025 documented in this encounter Plan of Treatment Upcoming Encounters Date Type Department Care Team (Latest Contact Info) Description 08/04/2025 3:15 PM FINISHER FINE DIAMOND DIES Appointment Department of Radiation Oncology in [address] [address] Sima Hall M.D. [address] [place] [phone] 08/05/2025 10:15 AM FINISHER FINE DIAMOND DIES Appointment Department of Radiation Oncology in [address] [phone] Sima Hall M.D. [address] [place] [phone] 08/06/2025 10:15 AM FINISHER FINE DIAMOND DIES Appointment Department of Radiation Oncology in [address] [address] Sima Hall M.D. [address] [place] [phone] 08/09/2025 10:15 AM FINISHER FINE DIAMOND DIES Appointment Department of Radiation Oncology in [address] [address] Sima Hall M.D. [address] [place] [phone] 08/10/2025 10:15 AM FINISHER FINE DIAMOND DIES Appointment Department of Radiation Oncology in [place], [place] [address] [place] [phone] Sima Hall M.D. [address] [place] [phone] 08/10/2025 10:30 AM FINISHER FINE DIAMOND DIES Appointment Department of Radiation Oncology in [address] [address] Sima Hall M.D. [address] [place] [phone] 08/11/2025 10:15 AM FINISHER FINE DIAMOND DIES Appointment Department of Radiation Oncology in [address] [address] Sima Hall M.D. [address] [place] [phone] 08/16/2025 2:00 PM FINISHER FINE DIAMOND DIES Appointment Department of Radiation Oncology in [address] [phone] Soren Dueñas M.D. [address] [place] [phone] 08/18/2025 1:30 PM FINISHER FINE DIAMOND DIES Appointment Department of Radiation Oncology in [address] [address] Soren Dueñas M.D. [address] [place] [phone] 09/20/2025 3:00 PM FINISHER FINE DIAMOND DIES Clinical Communication Virtual Review in [place], [place] [address] [place] [address] 09/23/2025 9:30 AM FINISHER FINE DIAMOND DIES Comprehensive Visit [facility] in [address] [phone] Laila Reed D.O., M.P.H. [address] [place] [phone] 09/24/2025 8:00 AM FINISHER FINE DIAMOND DIES Comprehensive Visit Department of Oncology in [address] [phone] Mago Lazcano P.A.-C., M.S. [address] [place] [phone] Scheduled Orders Name Type Priority Associated Diagnoses Orde r Schedule Management Visit Radiation Oncology Routine Malignant Neoplasm Of Uterus Endometrial (HCC) Once for 1 Occurrences starting 07/27/2025 until 07/27/2025 documented as of this encounter Visit Diagnoses Diagnosis Malignant Neoplasm Of Uterus Endometrial (HCC) documented in this encounter
--- OUTSIDE RECORDS SUMMARY | 2025-07-28 10:15 | XMS_ITS | Encounter Summary ---
Author Organization [facility] Address [address] [place] [address] Care Team Providers Care Brand Director Name Role Phone Unavailable Primary Care Provider Unavailabl e Reason for Visit * Radiation Therapy (Routine) - Authorized Specialty Diagnoses / Procedures Referred By Alicia ferguson Referred To Contact Diagnoses Malignant Neoplasm Of Uterus Endometrial (HCC) Procedures Prior Auth Rad Tx RI IMRT COMPLEX RI GUIDANCE FOR LOC RAD TX RI IMRT RADIOTHERAPY PLAN IMRT Soren Dueñas M.D. [address] [place] [phone] Phone: tel: fax: [facility] Referral ID Status Reason Start Date Expiration Date V isits Requested Visits Authorized [id number] Authorized 07/05/2025 10/03/2025 25 25 Encounter Details Date Type Department Care Team (Late st Contact Info) Description 07/28/2025 10:15 AM [facility] Hospital Encounter Department of Radiation Oncology in [place], [place] [address] [place] [phone] Sima Hall M.D. [address] [place] [phone] Social History Tobacco Use Types Packs/Day Years [...] for daily living? No 05/07/2025 [facility] Utilities Answer Date Recorded In the past 12 months has [employer] electric, gas, oil, or water company threatened to shut off services in your home? No 05/07/2025 Housing Stability Answer Date Recorded What is your living situation today? I have a [facility] place to live 05/07/2025 Comments No [...] (Latest Contact Info) Description 08/04/2025 3:15 PM PORT CDL A DRIVER Appointment Department of Radiation Oncology in [place], [place] [address] [place] [phone] Sima Hall M.D. [address] [place] [phone] 08/05/2025 10:15 AM PORT CDL A DRIVER Appointment Department of Radiation Oncology in [place], [place] [address] [place] [address] Sima Hall M.D. [address] [place] [phone] 08/06/2025 10:15 AM PORT CDL A DRIVER Appointment Department of Radiation Oncology in [address] [phone] Sima Hall M.D. [address] [place] [phone] 08/09/2025 10:15 AM PORT CDL A DRIVER Appointment Department of Radiation Oncology in [place], [place] [address] [place] [phone] Sima Hall M.D. [address] [place] [phone] 08/10/2025 10:15 AM PORT CDL A DRIVER Appointment Department of Radiation Oncology in [address] [address] Sima Hall M.D. [address] [place] [phone] 08/10/2025 10:30 AM PORT CDL A DRIVER Appointment Department of Radiation Oncology in [address] [phone] Sima Hall M.D. [address] [place] [phone] 08/11/2025 10:15 AM PORT CDL A DRIVER Appointment Department of Radiation Oncology in [place] [address] [place] [address] Sima Hall M.D. [address] [place] [phone] 08/16/2025 2:00 PM PORT CDL A DRIVER Appointment Department of Radiation Oncology in [place], [place] [address] [place] [phone] Soren Dueñas M.D. [address] [place] [phone] 08/18/2025 1:30 PM PORT CDL A DRIVER Appointment Department of Radiation Oncology in [place], [place] [address] [place] [phone] Soren Dueñas M.D. [address] [place] [phone] 09/20/2025 3:00 PM PORT CDL A DRIVER Clinical Communication Virtual Review in [place], [place] 200 [place] [phone] 09/23/2025 9:30 AM PORT CDL A DRIVER Comprehensive Visit [facility] in [place], [place] [address] [place] [phone] Laila Reed D.O., M.P.H. [address] [place] [phone] 09/24/2025 8:00 AM PORT CDL A DRIVER Comprehensive Visit Department of Oncology in [place], [place] [address] [place] [phone] Mago Lazcano P.A.-C., M.S. [address] [place] [phone] documented as of this encounter Visit Diagnoses Not on filedocumented in this encounter
--- OUTSIDE RECORDS SUMMARY | 2025-07-30 10:02 | XMS_ITS | Encounter Summary ---
Author Organization [facility] Address [address] [place] [address] Care Team Providers Care Auxiliary Engineer Name Role Phone Unavailable Primary Care Provider Unavailabl e Reason for Visit * Radiation Therapy (Routine) - Authorized Specialty Diagnoses / Procedures Referred By Alicia ferguson Referred To Contact Diagnoses Malignant Neoplasm Of Uterus Endometrial (HCC) Procedures Prior Auth Rad Tx [place] IMRT COMPLEX [place] GUIDANCE FOR LOC RAD TX [place] IMRT RADIOTHERAPY PLAN IMRT Soren Dueñas M.D. [address] [place] [phone] Phone: tel: fax: [facility] Referral ID Status Reason Start Date Expiration Date V isits Requested Visits Authorized [id number] Authorized 07/05/2025 10/03/2025 25 25 Encounter Details Date Type Department Care Team (Late st Contact Info) Description 07/30/2025 10:02 AM [facility] Hospital Encounter Department of Radiation Oncology in [place], [place] [address] [place] [phone] Sima Hall M.D. [address] [place] [phone] Social History Tobacco Use Types Packs/Day Years [...] things needed for daily living? No 05/07/2025 [facility] Utilities Answer Date Recorded In the past 12 months has [employer] electric, gas, oil, or water company threatened to shut off services in your home? No 05/07/2025 Housing Stability Answer Date Recorded What is your living situation today? I have a [facility] place to live 05/07/2025 Comments No [...] (Latest Contact Info) Description 08/04/2025 3:15 PM TOY TRAINS AND ACCESSORIES SALESPERSON Appointment Department of Radiation Oncology in [place], [place] [address] [place] [phone] Sima Hall M.D. [address] [place] [phone] 08/05/2025 10:15 AM TO[employer] TRAINS [employer] ACCESS[employer] SALESPERSON Appointment Department of Radiation Oncology in [place], [place] [address] [place] [address] Sima Hall M.D. [address] [place] [phone] 08/06/2025 10:15 AM TOY TRAINS AND ACCESSORIES SALESPERSON Appointment Department of Radiation Oncology in [address] [phone] Sima Hall M.D. [address] [place] [phone] 08/09/2025 10:15 AM [employer] TRA[employer] ACCESS[employer] SALESPERSON Appointment Department of Radiation Oncology in [place], [place] [address] [place] [phone] Sima Hall M.D. [address] [place] [phone] 08/10/2025 10:15 AM TO[employer] TRAINS [employer] ACCESSORIES SALESPERSON Appointment Department of Radiation Oncology in [address] [address] Sima Hall M.D. [address] [place] [phone] 08/10/2025 10:30 AM TOY TRAINS AND ACCESSORIES SALESPERSON Appointment Department of Radiation Oncology in [address] [phone] Sima Hall M.D. [address] [place] [phone] 08/11/2025 10:15 AM TOY TRAINS AND ACCESSORIES SALESPERSON Appointment Department of Radiation Oncology in [place] [address] [place] [address] Sima Hall M.D. [address] [place] [phone] 08/16/2025 2:00 PM TO[employer] TRAINS AND ACCESSORIES SALESPERSON Appointment Department of Radiation Oncology in [place], [place] [address] [place] [phone] Soren Dueñas M.D. [address] [place] [phone] 08/18/2025 1:30 PM TO[employer] TRAINS [employer] ACCESSORIES SALESPERSON Appointment Department of Radiation Oncology in [place], [place] [address] [place] [phone] Soren Dueñas M.D. [address] [place] [phone] 09/20/2025 3:00 PM TOY TRAINS AND ACCESSORIES SALESPERSON Clinical Communication Virtual Review in [place], [place] 200 [place] [phone] 09/23/2025 9:30 AM TOY TRAINS AND ACCESSORIES SALESPERSON Comprehensive Visit [facility] in [place], [place] [address] [place] [phone] Laila Reed D.O., M.P.H. [address] [place] [phone] 09/24/2025 8:00 AM [employer] TRA[employer] ACCESSORIES SALESPERSON Comprehensive Visit Department of Oncology in [place], [place] [address] [place] [phone] Mago Lazcano P.A.-C., M.S. [address] [place] [phone] documented as of this encounter Visit Diagnoses Not on filedocumented in this encounter
--- OUTSIDE RECORDS SUMMARY | 2025-08-02 10:09 | XMS_ITS | Encounter Summary ---
Author Organization [facility] Address [address] [place] [address] Care Team Providers Care Geoscience Technician Name Role Phone Unavailable Primary Care Provider Unavailabl e Reason for Visit * Radiation Therapy (Routine) - Authorized Specialty Diagnoses / Procedures Referred By Alicia ferguson Referred To Contact Diagnoses Malignant Neoplasm Of Uterus Endometrial (HCC) Procedures Prior Auth Rad Tx [place] IMRT COMPLEX [place] GUIDANCE FOR LOC RAD [place] IMRT RADIOTHERAPY PLAN IMRT Soren Dueñas M.D. [address] [place] [phone] Phone: tel: fax: [facility] Referral ID Status Reason Start Date Expiration Date V isits Requested Visits Authorized [id number] Authorized 07/05/2025 10/03/2025 25 25 Encounter Details Date Type Department Care Team (Late st Contact Info) Description 08/02/2025 10:09 AM [facility] Hospital Encounter Department of Radiation Oncology in [place], [place] [address] [place] [phone] Sima Hall M.D. [address] [place] [phone] Social History Tobacco Use Types Packs/Day Years [...] things needed for daily living? No 05/07/2025 [facility] Utilities Answer Date Recorded In the past 12 months has [employer] electric, gas, oil, or water company threatened to shut off services in your home? No 05/07/2025 Housing Stability Answer Date Recorded What is your living situation today? I have a [facility] place to live 05/07/2025 Comments No [...] (Latest Contact Info) Description 08/04/2025 3:[address]GER Appointment Department of Radiation Oncology in [place], [place] [address] [place] [phone] Sima Hall M.D. [address] [place] [phone] 08/05/2025 10:[address]NA[address] Appointment Department of Radiation Oncology in [place], [place] [address] [place] [address] Sima Hall M.D. [address] [place] [phone] 08/06/2025 10:[address]NAGER Appointment Department of Radiation Oncology in [address] [phone] Sima Hall M.D. [address] [place] [phone] 08/09/2025 10:[address]NAGER Appointment Department of Radiation Oncology in [place], [place] [address] [place] [phone] Sima Hall M.D. [address] [place] [phone] 08/10/2025 10:[address]NAGER Appointment Department of Radiation Oncology in [address] [phone] Sima Hall M.D. [address] [place] [phone] 08/10/2025 10:[address]NAGER Appointment Department of Radiation Oncology in [address] [phone] Sima Hall M.D. [address] [place] [phone] 08/11/2025 10:[address]NAGER Appointment Department of Radiation Oncology in [place] [phone] [place] [address] Sima Hall M.D. [address] [place] [phone] 08/16/2025 2:[address]NAGER Appointment Department of Radiation Oncology in [place], [place] [address] [place] [phone] Soren Dueñas M.D. [address] [place] [phone] 08/18/2025 1:[address]GER Appointment Department of Radiation Oncology in [place], [place] [address] [place] [phone] Soren Dueñas M.D. [address] [place] [phone] 09/20/2025 3:[address]NAGER Clinical Communication Virtual Review in [place], [place] 200 [place] [phone] 09/23/2025 9:[address]NAGER Comprehensive Visit [facility] in [place], [place] [address] [place] [phone] Laila Reed D.O., M.P.H. [address] [place] [phone] 09/24/2025 8:[address]NAGER Comprehensive Visit Department of Oncology in [place], [place] [address] [place] [phone] Mago Lazcano P.A.-C., M.S. [address] [place] [phone] documented as of this encounter Visit Diagnoses Not on filedocumented in this encounter
--- OUTSIDE RECORDS SUMMARY | 2025-08-03 15:06 | XMS_ITS | Encounter Summary ---
Author Organization [facility] Address [address] [place] [address] Care Team Providers Care Hogshead Head Matcher Name Role Phone Unavailable Primary Care Provider Unavailabl e Reason for Referral * Radiation Therapy (Routine) - Authorized Specialty Diagnoses / Procedures Referred By Alicia ferguson Referred To Contact Diagnoses Malignant Neoplasm Of Uterus Endometrial (HCC) Procedures Management Visit Soren Dueñas M.D. [address] [place] [address] Phone: tel: fax: [facility] Referral ID Status Reason Start Date Expiration Date V isits Requested Visits Authorized [id number] Authorized 06/24/2025 09/24/2026 5 5 ARCH ENGINEER MARINE EQUIPMENT Reason for Visit * Radiation Therapy (Routine) - Authorized Specialty Diagnoses / Procedures Referred By Alicia ferguson Referred To Contact Diagnoses Malignant Neoplasm Of Uterus Endometrial (HCC) Procedures Management Visit Soren Dueñas M.D. [address] [place] [address] Phone: tel: fax: [facility] Referral ID Status Reason Start Date Expiration Date V isits Requested Visits Authorized [id number] Authorized 06/24/2025 09/24/2026 5 5 Encounter Details Date Type Department Care Team (Latest Contact Info) Description 08/03/2025 3:06 PM RESEARCH ENGINEER MARINE EQUIPMENT - 08/03/2025 4:18 PM RESEARCH ENGINEER MARINE EQUIPMENT Hospital Encounter Department of Radiation Oncology in [place], [place] [address] [place] [phone] Sima Hall M.D. [address] [place] [address] Acute Cystitis With Hematuria (Primary Dx); Malignant Neoplasm Of Uterus Endometrial (HCC); Acute Cystitis Without Hematuria Social History Tobacco Use Types Packs/Day Years [...] things needed for daily living? No 05/07/2025 [facility] Utilities Answer Date Recorded In the past 12 months has [employer] electric, gas, oil, or water company threatened to shut off services in your home? No 05/07/2025 Housing Stability Answer Date Recorded What is your living situation today? I have a [facility] place to live 05/07/2025 Comments No Sex [...] Sign Reading Time Taken Comments Blood Pressure 138/89 08/03/2025 3:23 PM RESEARCH ENGINEER MARINE EQUIPMENT Pulse 109 08/03/2025 3:23 PM RESEARCH ENGINEER MARINE EQUIPMENT Temperature 36 C (96.8 F) 08/03/2025 3:23 PM RESEARCH ENGINEER MARINE EQUIPMENT Respiratory Rate - - Oxygen Saturation - - Inhaled Oxygen Concentration - - Weight 80.1 kg (176 lb 9.4 oz) 08/03/2025 3:23 P M RESEARCH ENGINEER MARINE EQUIPMENT Height - - Body Mass Index 31.49 05/31/2025 1:02 PM CDT documented in this encounter Medications at Time of Discharge buPROPion XL (Wellbutrin XL) 150 mg 24 hr tablet Take 150 mg by mouth daily. Lactobacillus acidophilus (Probiotic) 10 billion cell capsule Take 1 capsule by mouth daily. multivitamin-nurse examiner als-lutein (Multivitamin 50 Plus) tablet Take [...] as of this encounter Progress Notes * Sima Hall M.D. - 08/03/2025 3:30 PM CST SUBJECTIVE REASON FOR VISIT Evaluation for side effects while receiving radiation treatment for endometrial carcinoma. HISTORY OF PRESENT ILLNESS April Nicole is a 55 y.o. female with resected Stage IIIC1 endometrial carcinoma of the uterus. Treatment Course: 1xPelvis Plan ID Fractions Dose / Fraction (cGy) Dose Treated (cGy) Dose Planned (cGy) First Treatment Last Treatment Elapsed Days [id number] 180 [id number] 4500 07/07/2025 07/28/2025 21 Course Summary 07/07/2025 07/28/2025 21 The patient reports feeling well overall. She was seen just prior to her radiation today as she is waiting to fill her bladder more. She states that starting last Saturday she began having urinary urgency. She states that she also started having nocturia about 3 times per night. She has no burningor blood in her urine. She still has loose stools and is otherwise doing well. CONCURRENT THERAPY None OBJECTIVE BP 138/89 (BP Location: Right arm, Patient Position: Sitting, Cuff Size: Regular) Pulse 109 Temp 36 ??C (Temporal) Wt 80.1 kg BMI 31.49 [...] patient is tolerating radiation treatment well overall. We discussed trying an Ibuprofen for her urgency. I suspect this is from the radiation, but we will obtain a urinalysis and culture if positive today at [email or web address] We will call her with the results. She will continue with radiation treatment as planned. She can contact our care team with any questions or concerns. Signed by: Sima Hall M.D. 08/03/2025 3:41 PM RESEARCH ENGINEER MARINE EQUIPMENT ARCH ENGINEER MARINE EQUIPMENT documented in this encounter Plan of Treatment Upcoming Encounters Date Type Department Care Team (Latest Contact Info) Description 08/04/2025 3:15 PM RESEARCH ENGINEER MARINE EQUIPMENT Appointment Department of Radiation Oncology in [address] [address] Sima Hall M.D. [address] [place] [phone] 08/05/2025 10:15 AM RESEARCH ENGINEER MARINE EQUIPMENT Appointment Department of Radiation Oncology in [address] [address] Sima Hall M.D. [address] [place] [phone] 08/06/2025 10:15 AM RESEARCH ENGINEER MARINE EQUIPMENT Appointment Department of Radiation Oncology in [address] [address] Sima Hall M.D. [address] [place] [phone] 08/09/2025 10:15 AM RESEARCH ENGINEER MARINE EQUIPMENT Appointment Department of Radiation Oncology in [address] [phone] Sima Hall M.D. [address] [place] [phone] 08/10/2025 10:15 AM RESEARCH ENGINEER MARINE EQUIPMENT Appointment Department of Radiation Oncology in [address] [address] Sima Hall M.D. [address] [place] [phone] 08/10/2025 10:30 AM RESEARCH ENGINEER MARINE EQUIPMENT Appointment Department of Radiation Oncology in [address] [phone] Sima Hall M.D. [address] [place] [phone] 08/11/2025 10:15 AM RESEARCH ENGINEER MARINE EQUIPMENT Appointment Department of Radiation Oncology in [place], [place] [address] [place] [address] Sima Hall M.D. [address] [place] [phone] 08/16/2025 2:00 PM RESEARCH ENGINEER MARINE EQUIPMENT Appointment Department of Radiation Oncology in [place], [place] [address] [place] [phone] Soren Dueñas M.D. [address] [place] [phone] 08/18/2025 1:30 PM RESEARCH ENGINEER MARINE EQUIPMENT Appointment Department of Radiation Oncology in [place], [place] [address] [place] [phone] Soren Dueñas M.D. [address] [place] [phone] 09/20/2025 3:00 PM RESEARCH ENGINEER MARINE EQUIPMENT Clinical Communication Virtual Review in [place], [place] [address] [place] [phone] 09/23/2025 9:30 AM RESEARCH ENGINEER MARINE EQUIPMENT Comprehensive Visit [facility] in [address] [phone] Laila Reed D.O., M.P.H. [address] [place] [phone] 09/24/2025 8:00 AM RESEARCH ENGINEER MARINE EQUIPMENT Comprehensive Visit Department of Oncology in [place], [place] [address] [place] [phone] Mago Lazcano P.A.-C., M.S. [address] [place] [phone] Scheduled Orders Name Type Priority Associated Diagnoses Order Schedule Management Visit Radiation Oncology Routine Malignant Neoplasm Of Uterus Endometrial (HCC) Once for 1 Occurrences starting 08/03/2025 until 08/03/2025 Urinalysis, with Microscopic: Urine, Midstream Lab Routine Acute Cystitis Without Hematuria Expected: 08/03/2025 (Approximate), Expires: 11/01/2026 Bacterial Culture, Aerobic + Susceptibility, Urine Microbiology Routine Acute Cystitis Without Hematuria Expected: 08/03/2025 (Approximate), Expires: 11/01/2026 documented as of this encounter Visit Diagnoses Diagnosis Acute Cystitis With Hematuria- Primary Malignant Neoplasm Of Uterus Endometrial (HCC) Acute Cystitis Without Hematuria documented in this encounter
--- OUTSIDE RECORDS SUMMARY | 2025-08-03 15:06 | XMS_ITS | Encounter Summary ---
Author Organization [facility] Address [address] [place] [address] Care Team Providers Care Day Care Center Director Name Role Phone Unavailable Primary Care Provider Unavailabl e Reason for Visit * Radiation Therapy (Routine) - Authorized Specialty Diagnoses / Procedures Referred By Alicia ferguson Referred To Contact Diagnoses Malignant Neoplasm Of Uterus Endometrial (HCC) Procedures Prior Auth Rad Tx ID IMRT COMPLEX ID GUIDANCE FOR LOC RAD TX ID IMRT RADIOTHERAPY PLAN IMRT Soren Dueñas M.D. [address] [place] [phone] Phone: tel: fax: [facility] Referral ID Status Reason Start Date Expiration Date V isits Requested Visits Authorized [id number] Authorized 07/05/2025 10/03/2025 25 25 Encounter Details Date Type Department Care Team (Late st Contact Info) Description 08/03/2025 3:06 PM [facility] Hospital Encounter Department of Radiation Oncology in [place], [place] [address] [place] [phone] Sima Hall M.D. [address] [place] [phone] Social History Tobacco Use Types Packs/Day Years [...] Recorded In the past 12 months has [employer], gas, oil, or water company threatened to shut off services in your home? No 05/07/2025 Housing Stability Answer Date Recorded What is your living situation today? I have a [facility] place to live 05/07/2025 Comments No [...] (Latest Contact Info) Description 08/04/2025 3:15 PM WINDOW CLERK Appointment Department of Radiation Oncology in [place], [place] [address] [place] [phone] Sima Hall M.D. [address] [place] [phone] 08/05/2025 10:15 AM WINDOW CLERK Appointment Department of Radiation Oncology in [place], [place] [address] [place] [address] Sima Hall M.D. [address] [place] [phone] 08/06/2025 10:15 AM WINDOW CLERK Appointment Department of Radiation Oncology in [address] [address] Sima Hall M.D. [address] [place] [phone] 08/09/2025 10:15 AM WINDOW CLERK Appointment Department of Radiation Oncology in [place], [place] [address] [place] [phone] Sima Hall M.D. [address] [place] [phone] 08/10/2025 10:15 AM WINDOW CLERK Appointment Department of Radiation Oncology in [address] [address] Sima Hall M.D. [address] [place] [phone] 08/10/2025 10:30 AM WINDOW CLERK Appointment Department of Radiation Oncology in [address] [phone] Sima Hall M.D. [address] [place] [phone] 08/11/2025 10:15 AM WINDOW CLERK Appointment Department of Radiation Oncology in [place] [address] [place] [address] Sima Hall M.D. [address] [place] [phone] 08/16/2025 2:00 PM WINDOW CLERK Appointment Department of Radiation Oncology in [place], [place] [address] [place] [phone] Soren Dueñas M.D. [address] [place] [phone] 08/18/2025 1:30 PM WINDOW CLERK Appointment Department of Radiation Oncology in [place], [place] [address] [place] [phone] Soren Dueñas M.D. [address] [place] [phone] 09/20/2025 3:00 PM WINDOW CLERK Clinical Communication Virtual Review in [place], [place] [address] [place] [phone] 09/23/2025 9:30 AM WINDOW CLERK Comprehensive Visit [facility] in [place], [place] [address] [place] [phone] Laila Reed D.O., M.P.H. [address] [place] [phone] 09/24/2025 8:00 AM WINDOW CLERK Comprehensive Visit Department of Oncology in [place], [place] [address] [place] [phone] Mago Lazcano P.A.-C., M.S. [address] [place] [phone] documented as of this encounter Visit Diagnoses Not on filedocumented in this encounter
[2025-08-03 16:47] LABS: Appearance Urine Clear (Clear)
--- OUTSIDE RECORDS SUMMARY | 2025-08-04 00:12 | XMS_ITS | Encounter Summary ---
Author Organization [facility] Address [address] [place] [address] Care Team Providers Care Flour Blender Name Role Phone Linda Barros PA-C Primary Care Provider Alannah Bateman PA-C Unavailable [phone] Emeli Romo MD Unavailable + [phone] Encounter Details Date Type Department Care Team (Late st Contact Info) Description 04/24/2025 MyC Medical Advice [facility] [place] [address], [place] [address] [facility] [place] [phone] Emeli Romo MD [address] [place] [address] Social History Tobacco Use Types Packs/Day Years [...] in an abandoned building, in an overnight skilled nursing, or couch-surfing.) Yes 03/29/2025 Are you worried [...] on file Legal Sex Female 4:51 AM ROADABILITY MACHINE OPERATOR Gender Identity Not on file Sexual Orientation Not on file documented as of this encounter Plan of Treatment Not on file documented as of this encounter Visit Diagnoses Not on filedocumented in this encounter Care Teams Flour Blender Relationship Specialty Start Date End Date Linda Barros PA-C [address] [facility] [address] [place] [address] PCP - General Physician Welding Operator 05/30/23 Alannah Bateman PA-C [address] [place], [place] [phone] Assigned Cancer Care Provider 08/24/24 Emeli Romo MD [address] [place], [place] [phone] Physician Gynecologic Oncology 04/01/25 documented as of this encounter
--- OUTSIDE RECORDS SUMMARY | 2025-08-04 00:12 | XMS_ITS | Encounter Summary ---
Author Organization [facility] Address [address] [place] [address] Care Team Providers Care Shift Mechanic Name Role Phone Linda Barros PA-C Primary Care Provider Alannah Bateman PA-C Unavailable [phone] Emeli Romo MD Unavailable + [phone] Encounter Details Date Type Department Care Team (Late st Contact Info) Description 04/26/2025 MyC Medical Advice [facility] [place] [address], [place] [address] [facility] [place] [phone] Ludivina Rahman, [place] Social History Tobacco Use Types Packs/Day Years [...] in an abandoned building, in an overnight senior living, or couch-surfing.) Yes 03/29/2025 Are you worried [...] on file Legal Sex Female 4:51 AM MELT SUPERVISOR Gender Identity Not on file Sexual Orientation Not on file documented as of this encounter Plan of Treatment Not on file documented as of this encounter Visit Diagnoses Not on filedocumented in this encounter Care Teams Shift Mechanic Relationship Specialty Start Date End Date Linda Barros PA-C [address] [facility] [address] [place], [place] [address] PCP - General Physician Career Development Consultant 05/30/23 Alannah Bateman PA-C [address] [place] [address] Assigned Cancer Care Provider 08/24/24 Emeli Romo MD [address] [place] [address] Physician Gynecologic Oncology 04/01/25 documented as of this encounter
--- OUTSIDE RECORDS SUMMARY | 2025-08-04 00:12 | XMS_ITS | Encounter Summary ---
Author Organization [facility] Address [facility] [place] [address] Care Team Providers Care Medical Laboratory Manager Name Role Phone Linda Barros PA-C Primary Care Provider Alannah Bateman PA-C Unavailable [phone] Emeli Romo MD Unavailable + [phone] Encounter Details Date Type Department Care Team ([facility] st Contact Info) Description 12/11/2024 [facility] [place] [facility] [address] [facility] [address] [place] [phone] Alannah Bateman PA-C [address] [facility] [place] [address] Social History Tobacco Use Types Packs/Day Years Used Date Smoking Tobacco: Never Alcohol Use Standard Drinks/Week Comments Not Currently 0 (1 standard drink = 0.6 oz pur e alcohol) Rare social drinking Adolescent Education Answer Date Record ed Getting School Help Needed Not on file 05/24 Interpersonal Safety Answer Date Record ed Do you feel physically and e motionally safe where you currently live? Yes 06/02/2024 Within the past 12 months, h ave you been hit, slapped, kicked or otherwise physically hurt by someone? No 06/02/2024 Within the past 12 months, h ave you been humiliated or emotionally abused in other ways by your partner or ex-partner? No 06/02/2024 Comments No Sex and Gender Information Value Date Recorded Sex Assigned at Not on file Legal Sex Female 4:51 AM BENDING ROLL HAND Gender Identity Not on file Sexual Orientation Not on file documented as of this encounter Plan of Treatment Not on file documented as of this encounter Visit Diagnoses Not on filedocumented in this encounter Care Teams Medical Laboratory Manager Relationship Specialty Start Date End Date Linda Barros PA-C [address] [facility] [address] [place] [address] PCP - General Physician Senior Mechanical Project Engineer 05/30/23 Alannah Bateman PA-C [address] [place], [place] [phone] Assigned Cancer Care Provider 08/24/24 Emeli Romo MD [address] [place], [place] [address] Physician Gynecologic Oncology 04/01/25 documented as of this encounter
--- OUTSIDE RECORDS SUMMARY | 2025-08-04 00:12 | XMS_ITS | Encounter Summary ---
Author Organization [place] [facility] Address [address] [place] [address] Care Team Providers Care Chief Engineer'S Helper Name Role Phone Linda Barros PA-C Primary Care Provider Alannah Bateman PA-C Unavailable [phone] Emeli Romo MD Unavailable + [phone] Encounter Details Date Type Department Care Team (Late st Contact Info) Description 04/08/2025 MyC Medical Advice [facility] [place] [address], [place] [address] [facility] [place] [phone] Ludivina Rahman, [place] Social History Tobacco Use [...] in an abandoned building, in an overnight [facility], or couch-surfing.) Yes 03/29/2025 Are you worried [...] on file Legal Sex Female 4:51 AM BAGGAGEMASTER Gender Identity Not on file Sexual Orientation Not on file documented as of this encounter Plan of Treatment Not on file documented as of this encounter Visit Diagnoses Not on filedocumented in this encounter Care Teams Chief Engineer'S Helper Relationship Specialty Start Date End Date Linda Barros PA-C [address] [facility] [address] [place], [place] [address] PCP - General Physician Forest [employer]ometrics Professor 05/30/23 Alannah Bateman PA-C [address] [place] [address] Assigned Cancer Care Provider 08/24/24 Emeli Romo MD [address] [place] [address] Physician Gynecologic Oncology 04/01/25 documented as of this encounter
--- OUTSIDE RECORDS SUMMARY | 2025-08-04 00:15 | XMS_ITS | Clinical Summary ---
Author Organization [facility] Address [address] [place] [address] Care Team Providers Care Channeling Machine Operator Name Role Phone Unavailable Primary Care Provider Unavailabl e Source Comments Patient records contain information from all sites at [facility]. For routine questions regarding patient records, call [phone] during business hours, M-F 8:00 AM - 5:00 PM Central Time. Record requests for emergency care only can be directed to [phone] at any time.[facility] Allergies No known active allergies Medications * This document contains information received from the source organization and may not represent a complete record from that organization. buPROPion XL (Wellbutrin XL) 150 mg 24 hr tablet Take 150 mg by mouth daily. Active rivaroxaban (Xarelto) 20 mg tablet Take 20 mg by mouth daily with evening meal. 03/31/20 25 Active venlafaxine XR (Effexor-XR) 75 mg 24 hr capsule Take 75 mg by mouth daily. Active Lactobacillus acidophilus (Probiotic) 10 billion cell capsule Take 1 capsule by mouth daily. Active multivitamin-mi nerals-lutein (Multivitamin 50 Plus) tablet Take 1 tablet by mouth daily. Active omega-3 fatty acids 1,000 mg capsule Take 1 g by mouth daily. Active sennosides-docu sate sodium (Senokot-S) 8.6-50 mg per tablet Take 1 tablet by mouth daily. Until bowels return to normal 05/10/20 25 Active Additional Information Patient not taking.Informant: Self, Reported on 07/20/2025 acetaminophen (TylenoL) 500 mg tablet Take 2 tablets (1,000 mg total) by mouth every 6 (six) hours as needed for pain. 05/10/20 025 Discontin ued(Thera py completed ) ibuprofen 200 mg tablet Take 3 tablets (600 mg total) by mouth every 6 (six) hours as needed for pain. 05/10/20 025 Discontin ued(Thera py completed ) oxyCODONE (Roxicodone) 5 mg immediate release tabletIndicatio ns:Acute Pain Take 1 tablet (5 mg total) by mouth every 4 (four) hours as needed for pain (not relieved by acetaminophen and ibuprofen) Indication: Acute Pain. 5 tablet 2:09 PM CDT 05/10/20 025 Discontin ued(Thera py completed ) Active Problems Problem Noted Date Diagnosed Date Anemia Iron Deficiency 05/04/2025 Thrombosis Deep Vein Lower Extremity Left 2024 Anticoagulant Therapy 04/30/2025 Malignant Neoplasm Of Uterus Endometrial 025 Cancer Staging:Pathologic stage from 05/07/2025:FIGO Stage IIIC1i, calculated as Stage IIIC1(pT3a, pN1mi, cM0) - Signed by Palak Nobles M.D. on 05/31/2025 Mass Pelvis 04/23/2025 Embolus Pulmonary Personal History 04/23/2025 Obesity Body Mass Index 30-39.9 Adult 04/23/2025 Endometrial Intraepithelial Neoplasia EIN 2024 Mass Adnexal 04/23/2025 Lymphadenopathy Retroperitoneal 04/23/2025 Encounters * This document contains information received from the source organization and may not represent a complete record from that organization. Date Type Department Care Team Description 08/03/2025 3:06 PM AUDIT REVIEWER - 08/03/2025 4:18 PM AUDIT REVIEWER Hospital Encounter Department of Radiation Oncology in [address] [address] Sima Hall M.D. Acute Cystitis With Hematuria (Primary Dx); Malignant Neoplasm Of Uterus Endometrial (HCC); Acute Cystitis Without Hematuria 08/03/2025 3:06 PM AUDIT REVIEWER Hospital Encounter Department of Radiation Oncology in [address] [address] Sima Hall M.D. 08/02/2025 10:09 AM AUDIT REVIEWER Hospital Encounter Department of Radiation Oncology in [address] [address] Sima Hall M.D. 07/30/2025 10:02 AM AUDIT REVIEWER Hospital Encounter Department of Radiation Oncology in [address] [address] Sima Hall M.D. 07/28/2025 10:15 AM AUDIT REVIEWER Hospital Encounter Department of Radiation Oncology in [address] [address] Sima Hall M.D. 07/27/2025 10:05 AM AUDIT REVIEWER - 07/27/2025 5:08 PM AUDIT REVIEWER Hospital Encounter Department of Radiation Oncology in [address] [address] Sima Hall M.D. Malignant Neoplasm Of Uterus Endometrial (HCC) 07/27/2025 10:04 AM AUDIT REVIEWER Hospital Encounter Department of Radiation Oncology in [address] [address] Sima Hall M.D. 07/26/2025 10:04 AM AUDIT REVIEWER Hospital Encounter Department of Radiation Oncology in [address] [address] Sima Hall M.D. 07/23/2025 10:01 AM AUDIT REVIEWER Hospital Encounter Department of Radiation Oncology in [address] [address] Sima Hall M.D. 07/22/2025 10:02 AM AUDIT REVIEWER Hospital Encounter Department of Radiation Oncology in [address] [address] Sima Hall M.D. 07/21/2025 9:47 AM AUDIT REVIEWER Hospital Encounter Department of Radiation Oncology in [address] [address] Sima Hall M.D. 07/20/2025 10:04 AM AUDIT REVIEWER - 07/20/2025 11:10 AM AUDIT REVIEWER Hospital Encounter Department of Radiation Oncology in [address] [address] iSma Hall M.D. Retterath, Chelsey A, R.N. Malignant Neoplasm Of Uterus Endometrial (HCC) (Primary Dx) 07/20/2025 10:04 AM AUDIT REVIEWER - 07/22/2025 6:39 PM AUDIT REVIEWER Hospital Encounter Department of Radiation Oncology in [address] [address] Porfirio Gross M.D. Malignant Neoplasm Of Uterus Endometrial (HCC) 07/20/2025 10:04 AM AUDIT REVIEWER Hospital Encounter Department of Radiation Oncology in [address] [address] Sima Hall M.D. 07/19/2025 10:03 AM AUDIT REVIEWER Hospital Encounter Department of Radiation Oncology in [address] [address] Sima Hall M.D. 07/16/2025 9:36 AM AUDIT REVIEWER Hospital Encounter Department of Radiation Oncology in [address] [address] Sima Hall M.D. 07/15/2025 10:00 AM AUDIT REVIEWER Hospital Encounter Department of Radiation Oncology in [address] [address] Sima Hall M.D. 07/14/2025 9:36 AM AUDIT REVIEWER Hospital Encounter Department of Radiation Oncology in [address] [address] Sima Hall M.D. 07/13/2025 10:00 AM AUDIT REVIEWER - 07/13/2025 3:36 PM AUDIT REVIEWER Hospital Encounter Department of Radiation Oncology in [address] [address] Sima Hall M.D. Malignant Neoplasm Of Uterus Endometrial (HCC) 07/13/2025 9:59 AM AUDIT REVIEWER Hospital Encounter Department of Radiation Oncology in [address] [address] Sima Hall M.D. 07/12/2025 10:01 AM AUDIT REVIEWER Hospital Encounter Department of Radiation Oncology in [address] [address] Sima Hall M.D. 07/09/2025 3:05 PM AUDIT REVIEWER Hospital Encounter Department of Radiation Oncology in [address] [address] Sima Hall M.D. 07/08/2025 10:19 AM AUDIT REVIEWER Hospital Encounter Department of Radiation Oncology in [address] [address] Sima Hall M.D. 07/07/2025 1:13 PM AUDIT REVIEWER Hospital Encounter Department of Radiation Oncology in [address] [address] Sima Hall M.D. 07/02/2025 Orders Only Department of Radiation Oncology in [place] [address] [place] [address] Soren Dueñas M.D. Malignant Neoplasm Of Uterus Endometrial (HCC) (Primary Dx) 06/30/2025 12:13 PM CDT - 06/30/2025 12:44 PM CDT Hospital Encounter Department of Radiation Oncology in [address] [address] Sima Hall M.D. Malignant Neoplasm Of Uterus Endometrial (HCC) 06/30/2025 11:53 AM CDT - 06/30/2025 12:12 PM CDT Hospital Encounter Department of Radiation Oncology in [address] [address] Sima Hall M.D. Moorhouse, Alexis E, R.N. Anemia Iron Deficiency (Primary Dx) 06/30/2025 10:25 AM CDT - 06/30/2025 11:52 AM CDT Hospital Encounter Department of Radiation Oncology in [address] [address] Sima Hall M.D. Malignant Neoplasm Of Uterus Endometrial (HCC) (Primary Dx) 06/24/2025 Orders Only Department of Radiation Oncology in [address] [address] Ludivina Mckenzie APRN, C.N.P., D.N.P. Malignant Neoplasm Of Uterus Endometrial (HCC) (Primary Dx) 06/22/2025 1:00 PM CDT Office Visit Department of Obstetrics and Gynecology, Division of Gynecologic Oncology in [place], [place] [address] [place] [address] Saúl Pratt P.A.-C. Symptoms Vasomotor (Primary Dx); Follow Up Examination Status Post Surgery 06/22/2025 9:51 AM CDT - 06/23/2025 4:17 PM CDT Hospital Encounter Department of Radiation Oncology in [place], [place] [address] [place] [phone] Soren Dueñas M.D. Malignant Neoplasm Of Uterus Endometrial (HCC) (Primary Dx) 06/21/2025 Results Follow-Up Department of Medical Genetics in [place], [place] [address] [place] [phone] Ludivina Myles [facility]. [employer] Sent Out Lab 06/21/2025 Documentation Department of Medical Genetics in [place], [place] [address] [place] [address] Ludivina Myles Genetic Testing Results: Negative 06/17/2025 2:15 PM CDT Clinical Communication Virtual Review in [place], [place] [address] [place] [address] Pre-visit Intake 06/09/2025 1:17 PM CDT - 06/09/2025 11:59 PM CDT Hospital Encounter Department of Laboratory Medicine and Pathology, [facility], in [place], [place] [address] [place] [phone] Gamaliel Torres M.D. Malignant Neoplasm Of Uterus Endometrial (HCC); Cancer Breast Family History Discharge Disposition: Home or Self Care 06/09/2025 9:15 AM CDT Telemedicine Department of Medical Genetics in [place], [place] [address] [place] [phone] Saúl Pratt P.A.-C. Glenny Michele M.S., [facility] Malignant Neoplasm Of Uterus Endometrial (HCC) (Primary Dx); Cancer Breast Family History 06/09/2025 Clinical Communication Department of Medical Genetics in [place], [place] [address] [place] [phone] Gamaliel Torres M.D. Genetic Testing 06/08/2025 2:40 PM CDT Virtual Visit Department of Oncology in [place], [place] [address] [place] [phone] Palak Nobles M.D. Malignant Neoplasm Of Uterus Endometrial (HCC) (Primary Dx) 06/03/2025 Clinical Communication Department of Oncology in [place], [place] [address] [place] [phone] Palak Nobles M.D. 05/31/2025 1:20 PM CDT Office Visit Department of Oncology in [place], [place] [address] [place] [phone] Palak Nobles M.D. Malignant Neoplasm Of Uterus Endometrial (HCC) (Primary Dx) 05/28/2025 3:30 PM CDT Clinical Communication Virtual Review in [place], [place] [address] [place] [address] Pre-visit Intake 05/21/2025 Orders Only Department of Obstetrics and Gynecology, Division of Gynecologic Oncology in [place], [place] [address] [place] [phone] Saúl Pratt P.A.-C. Malignant Neoplasm Of Uterus Endometrial (HCC) (Primary Dx) 05/20/2025 Results Follow-Up Department of Obstetrics and Gynecology, Division of Gynecologic Oncology in [place], [place] [address] [place] [address] Saúl Pratt P.A.-C. Mismatch Repair (MMR) Protein Immunohistochemistry Only, Tumor 05/13/2025 Orders Only Department of Obstetrics and Gynecology, Division of Urogynecology in [place], [place] [address] [place] [address] Papa Paul, R.N. Malignant Neoplasm Of Uterus Endometrial (HCC) (Primary Dx) 05/13/2025 Clinical Communication Department of Obstetrics and Gynecology in [place], [place] [address] [place] [address] Zabrina Davila, RLadi. Post-op Follow-up 05/12/2025 Results Follow-Up Department of Obstetrics and Gynecology, Division of Gynecologic Oncology in [place], [place] [address] [place] [address] Carmen Spears M.D. Cytology Non-DADO OPERATOR, Surgical Pathology, Frozen Lab, HCV RNA Pt Source, Serum, Additional followed-up results: 4 05/07/2025 12:53 PM CDT Anesthesia Event [facility] [address] [place] [address] Gurwinder Riley M.D. 05/07/2025 11:52 AM CDT - 05/07/2025 3:25 PM CDT Surgery [facility] [address] [place] [address] Carmen Spears M.D. EXPLORATORY LAPAROTOMY. 05/07/2025 10:07 AM CDT - 05/10/2025 1:47 PM CDT Hospital Encounter [facility], [facility], [facility], Fifth Floor [address] [place] [address] Carmen Spears M.D. Clinical Research Exam; Endometrial Intraepithelial Neoplasia EIN; Mass Adnexal; Lymphadenopathy Retroperitoneal Discharge Disposition: Home or Self Care 05/07/2025 Ancillary Procedure Department of Laboratory Medicine 05/07/2025 Clinical Communication Department of Oncology in [place], [place] [address] [place] [address] Isaiah Branch M.D., Ph.D. Appointment 05/06/2025 5:30 PM CDT Infusion Department of Infusion Therapy in [place], [place] [address] [place] [address] Jumana Acevedo APRN, C.N.P., D.N.P. Anemia Iron Deficiency (Primary Dx) Discharge Disposition: Home or Self Care 05/05/2025 1:20 PM CDT Virtual Visit Department of Pharmacy in [place], [place] [address] [place] [address] Carmen Spears M.D. Vidhya Lopez, Pharm.D., R.Ph., BCPS Malignant Neoplasm Of Uterus Endometrial (HCC) (Primary Dx) from Last 3 Months Immunizations Immunization Administration Dates Next Due SARS-COV-2 (COVID-19) - PFIZ ER Fall Seasonal (12 YEARS OR OLDER) 06/10/2025 Family History Medical History Relation Name Comments Kidney stone Brother Soren Two surgeries f or kidney stones Lorenzo Parkinson White syndrome Brother Soren Skin cancer Father Ezra Motor vehicle accident Father's Brother 1 Chico Parkinson's disease Father's Brother 3 Seymour on set 60s Bilateral breast cancer (in both breasts) Father's Sister 1 Yaquelin Brain tumor Mother Rox Benign tumor pr essing on pituitary but kept growing back. Prostate cancer Mother's Brother Jb ADD / ADHD Nephew Cancer Paternal Grandfather possibl e prostate vs. bone Bilateral breast cancer (in both breasts) Paternal Grandmother Meriden Relation Name Status Comments Brother Soren Alive Father Ezra Alive having lump rem sparkle from chest Father's Brother 1 Chico (Age 62) Father's Brother 2 Sudarshan (Age 67) smok er; possible prostate cancer Father's Brother 3 Seymour (Age 79) Father's Sister 1 Yaquelin Alive Father's Sister 2 Isabelle Maternal Cousin 1 Alive Maternal Cousin 2 Alive Maternal Grandfather (Age 93) pn eumonia and in a care facility Maternal Grandmother (Age 93) ol d age Mother Rox Alive Mother's Brother Jb Alive Mother's Sister Ryanne Alive Nephew Alive Niece Alive Paternal Cousin 1 3 Alive Paternal Cousin 2 Alive Paternal Cousin 3 Alive Paternal Cousin 4 Alive Paternal Cousin 5 Alive Paternal Grandfather (Age 76) Paternal Grandmother Meriden (Age 86) Social History Tobacco Use Types Packs/Day Years [...] daily living? No 05/07/[address] [facility] Utilities Answer Date Recorded In the past 12 months has th e electric, gas, oil, or water company threatened to shut off services in your home? No 05/07/2025 Housing Stability Answer Date Recorded What is your living situation today? I have a [facility] place to live 05/07/2025 Comments No Sex and Gender Information Value Date Recorded Sex Assigned at Female 04/16/2025 2:23 PM CDT Legal Sex Female 12:06 PM CDT Gender Identity Female 04/16/2025 2:23 PM CDT Sexual Orientation Straight 04/16/2025 2: 23 PM CDT Occupation Industry Job Start Date Job End Date Not on file Not on file Not on file Not on file Last Filed Vital Signs Vital Sign Reading Time Taken Comments Blood Pressure 138/89 08/03/2025 3:23 PM AUDIT REVIEWER Pulse 109 08/03/2025 3:23 PM AUDIT REVIEWER Temperature 36 C (96.8 F) 08/03/2025 3:23 PM AUDIT REVIEWER Respiratory Rate 16 05/31/2025 1:02 PM CDT Oxygen Saturation 99% 05/31/2025 1:02 PM CDT Inhaled Oxygen Concentration - - Weight 80.1 kg (176 lb 9.4 oz) 08/03/2025 3:23 P M AUDIT REVIEWER Height 159.5 cm (5' 2.8) 05/31/2025 1:02 PM CDT Body Mass Index 31.49 05/31/2025 1:02 PM CDT Plan of Treatment Upcoming Encounters Date Type Department Care Team (Latest Contact Info) Description 08/04/2025 3:15 PM AUDIT REVIEWER Appointment Department of Radiation Oncology in [place], [place] [address] [place] [address] Sima Hall M.D. [address] [place] [address] 08/05/2025 10:15 AM AUDIT REVIEWER Appointment Department of Radiation Oncology in [place], [place] [address] [place] [address] Sima Hall M.D. [address] [place] [address] 08/06/2025 10:15 AM AUDIT REVIEWER Appointment Department of Radiation Oncology in [address] [address] Sima Hall M.D. [address] [place] [phone] 08/09/2025 10:15 AM AUDIT REVIEWER Appointment Department of Radiation Oncology in [address] [address] Sima Hall M.D. [address] [place] [phone] 08/10/2025 10:15 AM AUDIT REVIEWER Appointment Department of Radiation Oncology in [address] [address] Sima Hall M.D. [address] [place] [phone] 08/10/2025 10:30 AM AUDIT REVIEWER Appointment Department of Radiation Oncology in [address] [address] Sima Hall M.D. [address] [place] [phone] 08/11/2025 10:15 AM AUDIT REVIEWER Appointment Department of Radiation Oncology in [address] [address] Sima Hall M.D. [address] [place] [phone] 08/16/2025 2:00 PM AUDIT REVIEWER Appointment Department of Radiation Oncology in [place], [place] [address] [place] [phone] Soren Dueñas M.D. [address] [place] [phone] 08/18/2025 1:30 PM AUDIT REVIEWER Appointment Department of Radiation Oncology in [place], [place] [address] [place] [phone] Soren Dueñas M.D. [address] [place] [phone] 09/20/2025 3:00 PM AUDIT REVIEWER Clinical Communication Virtual Review in [place], [place] [address] [place] [address] 09/23/2025 9:30 AM AUDIT REVIEWER Comprehensive Visit [facility] in [place], [place] [address] [place] [address] Laila Reed D.O., M.P.H. [address] [place] [phone] 09/24/2025 8:00 AM AUDIT REVIEWER Comprehensive Visit Department of Oncology in [place], [place] [address] [place] [phone] Mago Lazcano PMirta.-C., M.S. [address] [place] [phone] Health Maintenance Due Date Last Done Comments CT Colonography 1972 Colonoscopy 1972 FIT 1972 Hepatitis C Screening 1972 Lipid (Cholesterol) Screening 1972 Hepatitis B Vaccines (1 of 3 - 19+ 3-dose series) 1991 RSV vaccine - (32-36 weeks) or 50+ years (1 - Risk 50-74 years 1-dose series) 2022 Depression Screening (Annual PHQ-2) 09/02/2024 COVID-19 Vaccine (7 - Pfizer risk 2024- season) 2025 06/10/2025, 07/24/2024, 05/31/2022, Additional history exists Mammogram 06/28/2026 06/28/2025, 06/03, 07/03/2024, Additional history exists Cologuard 04/19/2028 04/19/2025 Colorectal Cancer Screening 04/19/2028 Fasting Glucose for Diabetes Screening 05/08/2028 05/08/2025, 04/23/2025, 03/30/2025, Additional history exists DTaP,Tdap,and Td Vaccines (2 - Td or Tdap) 10/25/2030 10/25/2020 Zoster Vaccines Completed 06/22/2023, 03/04/2023 Pneumococcal vaccine (50+ years) Completed 04/07/2025 Influenza Vaccine Completed 06/10/2025, , 06/22/2023, Additional history exists HPV Vaccines Aged Out No longer eligi ble based on patient's age to complete this topic IPV Vaccines Aged Out No longer eligi ble based on patient's age to complete this topic Medical Devices Implanted Type Area Salesperson Driver Device Identifier Shelf Expiration Date Model / Serial / Lot Clp Hrzn Ti 6 Clp Md-Lg Grn - [id number] Implanted:Qty : 1 on 05/07/2025 by Carmen Spears M.D. at [facility] Hardware e.g. pins/screws/ rods [employer] [id number] 01/10/2030 [id number] / / [id number] Clp Hrzn Ti 6 Clp Md-Lg Grn - [id number] Implanted:Qty : 1 on 05/07/2025 by Carmen Spears M.D. at [facility] Hardware e.g. pins/screws/ rods [employer] [id number] 12/14/2029 [id number] / / [id number] Clp Hrzn Ti 6 Clp Md-Lg Grn - [id number] Implanted:Qty : 1 on 05/07/2025 by Carmen Spears M.D. at [facility] Hardware e.g. pins/screws/ rods [employer] [id number] 01/10/2030 [id number] / / [id number] Clp Hrzn Ti 6 Clp Md-Lg Grn - [id number] Implanted:Qty : 1 on 05/07/2025 by Carmen Spears M.D. at [facility] Hardware e.g. pins/screws/ rods [employer] [id number] 01/10/2030 [id number] / / [id number] Clp Hrzn Ti 6 Clp Md Adrien - [id number] Implanted:Qty : 1 on 05/07/2025 by Carmen Spears M.D. at [facility] Hardware e.g. pins/screws/ rods [employer] [id number] 08/01/2029 [id number] / / [id number] Clp Hrzn Ti 6 Clp Md-Lg Grn - [id number] Implanted:Qty : 1 on 05/07/2025 by Carmen Spears M.D. at [facility] Hardware e.g. pins/screws/ rods [employer] [id number] 12/14/2029 [id number] / / [id number] Clp Hrzn Ti 6 Clp Md-Lg Grn - [id number] Implanted:Qty : 1 on 05/07/2025 by Carmen Spears M.D. at [facility] Hardware e.g. pins/screws/ rods [employer] [id number] 12/14/2029 [id number] / / [id number] Clp Hrzn Ti 6 Clp Md-Lg Grn - [id number] Implanted:Qty : 1 on 05/07/2025 by Carmen Spears M.D. at [facility] Hardware e.g. pins/screws/ rods [employer] [id number] 12/14/2029 [id number] / / [id number] Clp Hrzn Ti 6 Clp Md Adrien - [id number] Implanted:Qty : 1 on 05/07/2025 by Carmen Spears M.D. at [facility] Hardware e.g. pins/screws/ rods [employer] [id number] 08/01/2029 [id number] / / [id number] Procedures Procedure Name Priority Date/Time Associated Diagnosis Comments ARIA DAILY TREATMENT INFORMATION Routine 08/03/2025 4:02 PM AUDIT REVIEWER ARIA DAILY TREATMENT INFORMATION Routine 08/02/2025 10:32 AM AUDIT REVIEWER ARIA DAILY TREATMENT INFORMATION Routine 07/30/2025 10:18 AM AUDIT REVIEWER ARIA DAILY TREATMENT INFORMATION Routine 07/28/2025 10:46 AM AUDIT REVIEWER ARIA DAILY TREATMENT INFORMATION Routine 07/27/2025 10:58 AM AUDIT REVIEWER ARIA DAILY TREATMENT INFORMATION Routine 07/26/2025 10:27 AM AUDIT REVIEWER ARIA DAILY TREATMENT INFORMATION Routine 07/23/2025 10:24 AM AUDIT REVIEWER ARIA DAILY TREATMENT INFORMATION Routine 07/22/2025 10:19 AM AUDIT REVIEWER ARIA DAILY TREATMENT INFORMATION Routine 07/21/2025 10:21 AM AUDIT REVIEWER ARIA DAILY TREATMENT INFORMATION Routine 07/20/2025 10:25 AM AUDIT REVIEWER ARIA DAILY TREATMENT INFORMATION Routine 07/19/2025 10:14 AM AUDIT REVIEWER ARIA DAILY TREATMENT INFORMATION Routine 07/16/2025 9:43 AM AUDIT REVIEWER ARIA DAILY TREATMENT INFORMATION Routine 07/15/2025 10:28 AM AUDIT REVIEWER ARIA DAILY TREATMENT INFORMATION Routine 07/14/2025 10:18 AM AUDIT REVIEWER ARIA DAILY TREATMENT INFORMATION Routine 07/13/2025 10:24 AM AUDIT REVIEWER ARIA DAILY TREATMENT INFORMATION Routine 07/12/2025 10:33 AM AUDIT REVIEWER ARIA DAILY TREATMENT INFORMATION Routine 07/09/2025 3:37 PM AUDIT REVIEWER ARIA DAILY TREATMENT INFORMATION Routine 07/08/2025 11:09 AM AUDIT REVIEWER ARIA DAILY TREATMENT INFORMATION Routine 07/07/2025 1:30 PM AUDIT REVIEWER INITIAL RAD ONC TREATMENT PLANNING CT SIMULATION Routine 06/30/2025 1:00 PM CDT Malignant Neoplasm Of Uterus Endometrial (HCC) INITIAL RAD ONC TREATMENT PLANNING CT SIMULATION Routine 06/30/2025 12:13 PM CDT Malignant Neoplasm Of Uterus Endometrial (HCC) MIS. [place] Routine 06/14/2025 12:00 AM CDT MISCELLANEOUS SENT OUT LAB TEST Routine 06/14/2025 12:00 AM CDT Malignant Neoplasm Of Uterus Endometrial (HCC) Cancer Breast Family History CBC WITHOUT DIFFERENTIAL, B Routine 05/10/2025 12:36 AM CDT CBC WITHOUT DIFFERENTIAL, B Routine 05/09/2025 12:13 AM CDT CBC WITHOUT DIFFERENTIAL, B Routine 05/08/2025 12:20 AM CDT BASIC METABOLIC PANEL, S/P Routine 05/08/2025 12:20 AM CDT ADULT OXYGEN THERAPY Routine 05/07/2025 6:44 PM CDT ADULT OXYGEN THERAPY Routine 05/07/2025 6:44 PM CDT DX ABDOMEN 1 VIEW RAD - Routine (most inpatients and all outpatients) 05/07/2025 6:27 PM CDT HIV-1/HIV-2 AB RAPID PT SOURCE, B STAT 05/07/2025 6:13 PM CDT HIV-1/-2 AG AND AB PS, PLASMA STAT 05/07/2025 6:13 PM CDT HCV RNA PT SOURCE, S STAT 05/07/2025 6:13 PM CDT HBS ANTIGEN PATIENT SOURCE STAT 05/07/2025 6:12 PM CDT MAYOCOMPLETE ENDOMETRIAL PANEL Routine 05/07/2025 3:32 PM CDT SURGICAL PATHOLOGY, [facility] LAB Routine 05/07/2025 2:25 PM CDT Endometrial Intraepithelial Neoplasia EIN Mass Adnexal Lymphadenopathy Retroperitoneal CYTOLOGY NON-DADO OPERATOR Routine 05/07/2025 1:58 PM CDT Endometrial Intraepithelial Neoplasia EIN Mass Adnexal Lymphadenopathy Retroperitoneal LDA ANE ENDOTRACHEAL AIRWAY Routine 05/07/2025 1:11 PM CDT APPENDECTOMY 05/07/2025 12:31 PM CDT Endometrial Intraepithelial Neoplasia EIN Mass Adnexal Lymphadenopathy Retroperitoneal LYMPHADENECTOMY - PELVIS OR AORTIC 05/07/2025 12:31 PM CDT Endometrial Intraepithelial Neoplasia EIN Mass Adnexal Lymphadenopathy Retroperitoneal OMENTECTOMY 05/07/2025 12:31 PM CDT Endometrial Intraepithelial Neoplasia EIN Mass Adnexal Lymphadenopathy Retroperitoneal BIOPSY SENTINEL LYMPH NODE 05/07/2025 12:31 PM CDT Endometrial Intraepithelial Neoplasia EIN Mass Adnexal Lymphadenopathy Retroperitoneal HYSTERECTOMY TOTAL ABDOMINAL WITH SALPINGO-OOPHORECTOMY 05/07/2025 12:31 PM CDT Endometrial Intraepithelial Neoplasia EIN Mass Adnexal Lymphadenopathy Retroperitoneal EXPLORATORY LAPAROTOMY 05/07/2025 12:31 PM CDT Endometrial Intraepithelial Neoplasia EIN Mass Adnexal Lymphadenopathy Retroperitoneal MMR PROTEIN, IHC ONLY, TUMOR Routine 05/07/2025 11:36 AM CDT Malignant Ne[facility]us [facility], B Routine 05/07/2025 10:49 AM CDT Clinical Research Exam PATHOLOGY IMAGE EXAM Routine 05/07/2025 12:00 AM CDT OUTSIDE MG MAMMOGRAM Routine 07/03/2024 12:55 PM CDT from Last 3 Months or Most Recently Relevant to Health Maintenance Results * Aria Daily Treatment Information (08/03/2025 4:02 PM AUDIT REVIEWER) Only the most recent of19 resultswithin the time period is included. Course ID [id number] MORENO ARIA Course Start Date 5 08:21 AUDIT REVIEWER MORENO ARIA First Treatment Date 5 13:27 AUDIT REVIEWER MORENO ARIA Last Treatment Date 5 16:02 AUDIT REVIEWER MORENO ARIA Treatment Elapsed Days 27 MORENO ARIA Reference Point dpv 4500x MORENO ARIA Dosage Given to Date cGy 3420 MORENO ARIA Session Dosage Given 180 MORENO ARIA Plan ID [id number] MORENO ARIA Fractions Treated to Date 19 MORENO ARIA Planned Total Fractions 25 MORENO ARIA Prescribed Dose Per Fraction 180 MORENO ARIA Prescription Dose in cGy 4500 MORENO ARIA Plan Primary Reference Point dpv 4500x MORENO ARIA 08/03/2025 4:02 PM AUDIT REVIEWER us Provider Not In System RADIATION ONCOLOGY ORDERA BLES Final Result MORENO MICHAEL na * Initial Rad Onc Treatment Planning CT Simulation (06/30/2025 1:00 PM CDT) Only the most recent of2 resultswithin the time period is included. Narrative [facility] - 06/30/2025 1:00 PM CDT Sima Hall M.D. 06/30/2025 12:44 PM Initial Rad Onc Treatment Planning CT Simulation Performed by: iSma Hall M.D. Authorized by: Sima Hall M.D. [...] planning. CT images were transferred to the [employer] treatment planning system, after a reference isocenter was determined and marked. Segmentation and treatment planning will take place prior to treatment delivery. Patient set up and imaging was appropriate and completed without incident. Employee Development Specialist use:No Sima Hall M.D. RADIATION ONCOLOGY ORDERA BLES Final Result TIFFANIE RODRIGUEZ na * [facility] Sent Out Lab (06/14/2025 12:00 AM CDT) Test Name [facility] Multi-Cancer Panel 06/21/2025 9:21 AM CDT INVC Result SEE COMMENT 06/21/2025 10:08 AM CDT INVC Comment: For final report, select Lab-Send Out Lab Results hyperlink below. 06/14/2025 06/21/2025 9:2 1 AM CDT Gamaliel Torres M.D. LAB MISC ORDERABLES Final Result [employer] [address] [place] [phone], [facility] [employer] [address] [place] [phone] * [id number] [facility] Multi-Cancer Panel - Miscellaneous Test (06/14/2025 12:00 AM CDT) Test Name [facility] Multi-Cancer Panel 06/21/2025 9:21 AM CDT HLS Result Specimen sent out; results to follow DEFAULT 06/21/2025 9:21 AM CDT HLS Saliva (Mouth) 06/14/2025 06/21/2025 9:21 AM CDT Gamaliel Torres M.D. LAB MISC ORDERABLES Final Result [facility] [address] HLS [facility] [address] [place] [address] * (ABNORMAL) CBC without Differential (05/10/2025 12:36 AM CDT) Only the most recent of3 resultswithin the time period is included. Pathologist [facility] Hemoglobin 8.8(L) 11.6 - 15.0 g/dL 05/10/2025 1:04 AM CDT DTL Hematocrit 27.0(L) 35.5 - 44.9 % 05/10/2025 1:04 AM CDT DTL Erythrocytes 3.22(L) 3.92 - 5.13 x10(12)/L 05/10/2025 1:04 AM CDT DTL MCV 83.9 78.2 - 97.9 fL 05/10/2025 1:04 AM CDT DTL RBC Distrib Width 14.9 12.2 - 16.1 % 05/10/2025 1:04 AM CDT DTL Platelet Count 371 157 - 371 x10(9)/L 05/10/2025 1:04 AM CDT DTL Leukocytes 9.2 3.4 - 9.6 x10(9)/L 05/10/2025 1:04 AM CDT DTL Blood (Blood, Venous) 05/10/2025 12:36 AM CDT 05/10/2025 12:54 AM CDT Angi Johnson M.D. LAB BLOOD ADD-ON Final Resu lt [facility] [address] [place] [address], [facility] [address] [place] [address] * (ABNORMAL) Basic Metabolic Panel (05/08/2025 12:20 AM CDT) [facility] Potassium, S 4.5 3.6 - 5.2 mmol/L 05/08/2025 1:13 AM CDT DTL Sodium, S 136 135 - 145 mmol/L 05/08/2025 1:13 AM CDT DTL Chloride, S 102 98 - 107 mmol/L 05/08/2025 1:13 AM CDT DTL Bicarbonate, S 20(L) 22 - 29 mmol/L 05/08/2025 1:13 AM CDT DTL Anion Gap 14 7 - 15 05/08/2025 1:13 AM CDT DTL BUN (Blood Urea Nitrogen), S 11 6 - 21 mg/dL 05/08/2025 1:13 AM CDT DTL Creatinine 0.97 0.59 - 1.04 mg/dL 05/08/2025 1:13 AM CDT DTL Estimated GFR (eGFR) 70 >=60 mL/min/BSA 05/08/2025 1:13 AM CDT DTL Comment: Estimated GFR calculated using the 2020 CKD_EPI creatinine equation. Calcium, Total, S 8.5(L) 8.6 - 10.0 mg/dL 05/08/2025 1:13 AM CDT DTL Glucose, S 144(H) 70 - 140 mg/dL 05/08/2025 1:13 AM CDT DTL Blood (Blood, Venous) 05/08/2025 12:20 AM CDT 05/08/2025 12:47 AM CDT Gabino Oro M.D. LAB BLOOD ADD-ON Final Resu lt [facility] [address] [place] [address], [facility] [address] [place] [address] * DX Abdomen 1 View (05/07/2025 6:27 PM CDT) Anatomical Region Laterality Modality Abdomen, Abdominal RST LOS, Abdominal ARZ LOS, Abdominal FLA LOS N/A Digital Radiography Impressions 05/07/2025 7:01 PM CDT Postsurgical changes of hysterectomy, bilateral salpingo-oophorectomy, appendectomy, omentectomy, and lymphadenectomy. Remainder negative for postoperative purposes. Narrative 05/07/2025 7:01 PM CDT EXAM: DX ABDOMEN 1 VIEW Procedure Note Layton Saravia M.D. - 05/07/2025 EXAM: DX ABDOMEN 1 VIEW IMPRESSION: Postsurgical changes of hysterectomy, bilateral salpingo- oophorectomy,appendectomy, omentectomy, and lymphadenectomy. Remainder negative forpostoperative purposes. us Carmen Spears M.D. IMG DIAGNOSTIC IMAGING PROCEDURES Final Result * HIV-1/-2 Ag and Ab PS, Plasma (05/07/2025 6:13 PM CDT) Pathologist [facility] HIV-1/-2 Ag and Ab PS, P Negative Negative 05/08/2025 8:59 AM CDT [facility] Comment: Negative result does not rule out HIV infection. If exposure to HIV infection occurred <14 days ago, contact the laboratory to request addition of HIV-1/HIV-2 RNA Detection Patient Source, Plasma (HEP12). Blood (Blood, Venous) 05/07/2025 6:13 PM CDT 05/08/2025 8:14 AM CDT us Carmen Spears M.D. LAB MICROBIOLOGY - BLOO D ORDERABLES Final Result [facility] [address] [place] [address] [facility] [address] [place] [address] * HCV RNA Pt Source, Serum (05/07/2025 6:13 PM CDT) [facility] HCV RNA Pt Source, S Undetected Undetected IU/mL 05/07/2025 11:28 PM CDT [facility] Comment: Result in log IU/mL is Undetected. ----ADDITIONAL INFORMATION---- The quantification range of this assay is 15 to 100,000,000 IU/mL (1.18 log to 8.00 log IU/mL). Testing was performed using the lakshmi HCV test ([employer] Blood (Blood, Venous) 05/07/2025 6:13 PM CDT 05/07/2025 8:18 PM CDT us Carmen Spears M.D. LAB MICROBIOLOGY - BLOO D ORDERABLES Final Result [facility] [address] [place] [address] [facility] [address] [place] [address] [place] [address] * HIV-1/HIV-2 Ab Rapid Pt Source (05/07/2025 6:13 PM CDT) [facility] HIV-1/HIV-2 Ab Rapid Pt Source, B Negative Negative 05/07/2025 6:44 PM CDT [facility] Blood (Blood, Venous) 05/07/2025 6:13 PM CDT 05/07/2025 6:13 PM CDT us Carmen Spears M.D. LAB MICROBIOLOGY - BLOO D ORDERABLES Final Result Performing Organization Address City/[facility]/ZIP Co de Phone Number [facility] [address] [place] [address], [place] METH [facility] [address] [place] [address] * HBs Antigen Patient Source (05/07/2025 6:12 PM CDT) [facility] HBs Antigen Patient Source, S Negative Negative 05/08/2025 8:55 AM CDT [facility] Blood (Blood, Venous) 05/07/2025 6:12 PM CDT 05/08/2025 8:14 AM CDT us Carmen Spears M.D. LAB MICROBIOLOGY - BLOO D ORDERABLES Final Result [facility] [address] [place] [address] [facility] [address] [place] [address] * [facility] Endometrial Carcinoma Panel, Next-Generation Sequencing, Tumor (05/07/2025 3:32 PM CDT) Result The results provided within this report represent molecular testing results only. Please refer to the Surgical Pathology report for the integrated molecular and pathology diagnosis (if applicable). Provided diagnosis: endometrial carcinoma Microsatellite Instability (MSI) status: Stable (HARRIS) The following CLINICALLY RELEVANT VARIANT was detected: Gene: CTNNB1 DNA Change: c.98C>G (Exon 3) Amino Acid Change: p.S33C ([id number]) Variant Allele Frequency: 39.3% The following VARIANTS OF UNCERTAIN SIGNIFICANCE were detected: Gene: EVERARDO DNA Change: c.8663T>C (Exon 59) Amino Acid Change: p.A8942W ([id number]) Variant Allele Frequency: 41.5% Gene: MSH2 DNA Change: c.2517T>A (Exon 15) Amino Acid Change: p.H839Q (Pqc218Ssg) Variant Allele Frequency: 36.9% No other reportable sequence variants were detected within the analyzed regions of the tested gene(s) listed in the method description. This test does not include NTRK fusion testing. Clinically approved therapy is available for patients with metastatic or unresectable solid tumors with an NTRK fusion [fda.gov/drugs]. If clinically indicated, consider NTRK Gene Fusion Panel (NTRK) for evaluation of NTRK fusions. Please refer to [employer] or call for more information. 05/27/2025 10:53 AM CDT DTL Additional Information CLINICAL TRIALS Possible clinical trials of benefit for this patient can be found at the following sites: 1) ClinicalTrials.gov: www.clinicaltrials. gov/ct2/search/adva nced 2) [facility]: www.[facility]/resear ch/clinical-trials/ 3) [facility] [place]: www.cancer.gov/clin icaltrials/search REFERENCE TRANSCRIPTS Sequence variant nomenclature is based on the following RefSeq accession numbers (build GRCh37 (hg19)):EVERARDO [id number], CTNNB1 [id number] and MSH2 [id number]. 05/27/2025 10:53 AM CDT DTL Specimen Tissue, Tumor 05/27/2025 10:53 AM CDT DTL Tissue ID [id number] 05/27/2025 10:53 AM CDT DTL Method Microscopic examination is performed by a pathologist to identify areas of tumor for enrichment by macrodissection. Next generation sequencing is performed to test for the presence of microsatellite instability and a mutation within most coding regions and exon/intron boundaries of the following genes: EVERARDO, ATR, BRCA1, BRCA2, CDK12, CTNNB1, EPCAM, ERBB2, FBXW7, L1CAM, MLH1, MSH2, MSH6, NBN, PALB2, PMS2, POLE, MSJ4F6Z, and TP53. Variant nomenclature is based on build GRCh37 (hg19). For details about gene transcripts (RefSeq accession numbers), specific targeted regions of each gene, and additional information on this test, see www.[employer]. [employer]! (Test ID MCECP). 05/27/2025 10:53 AM CDT DTL Disclaimer This test cannot differentiate between somatic and germline alterations. Additional testing may be necessary to clarify the significance of results if there is a potential hereditary risk. DNA variants of uncertain significance may be identified. A negative result does not rule out the presence of a variant that may be present but below the limits of detection of this assay. The analytical sensitivity of this assay for sequence reportable alterations is 5% mutant allele frequency with a minimum coverage of 500X in a sample with at least 20% tumor content. Point mutations and small insertion/deletion mutations will be detected in the EVERARDO, ATR, BRCA1, BRCA2, CDK12, CTNNB1, EPCAM, ERBB2, FBXW7, L1CAM, MLH1, MSH2, MSH6, NBN, PALB2, PMS2, POLE, DMD2Z7R, and TP53 genes only. This test may detect single exon deletions but does not detect multi-exon deletions, duplications, larger-scale genomic copy number variants, copy neutral loss of heterozygosity (PEGGY), or epigenetic modifications such as promoter methylation. DELINS of 1,000 bp or less are detectable with at least 50 or more supporting reads. This test cannot reliably determine if a variant identified in PMS2 exons 11-15 originated from PMS2 or the highly homologous pseudogene PMS2CL. In the instance that a reportable variant is detected in PMS2 exons 11-15, additional testing will be recommended in the patient report. Variant allele frequency (VAF) is the percentage of sequencing reads supporting a specific variant divided by the total sequencing reads at that position. In somatic testing, VAF should be interpreted in the context of several factors including, but not limited to: tumor purity/heterogeneit y/copy number status (ploidy, gains/losses, loss of heterozygosity) and sequencing artifact/misalignme nt [PMID: 20036915, PMID: 24402569]. Rare polymorphisms may be present that could lead to false-negative or false-positive results. The presence or absence of a variant may not be predictive of response to therapy in all patients. Test results should be interpreted in the context of clinical, tumor sampling, histopathological, and other laboratory data. If results obtained do not match other clinical or laboratory findings, contact the laboratory for discussion. Misinterpretation of results may occur if the information provided is inaccurate and/or incomplete. Reliable results are dependent on adequate specimen collection and processing. This test has been validated on cytology slides and formalin-fixed, paraffin-embedded tissues; other types of fixatives are discouraged. Improper treatment of tissues, such as decalcification, may cause PCR failure. This test was developed and its performance characteristics determined by [facility] in a manner consistent with CLIA requirements. This test has not been cleared or approved by the U.S. Food and Drug Administration. 05/27/2025 10:53 AM CDT DTL Released By Farhat Caldwell M.D., Ph.D. 05/27/2025 10:53 AM CDT DTL Interpretation MSI: Stable (HARRIS) NO evidence of microsatellite instability was detected suggesting the presence of normal DNA mismatch repair function within the tumor. Current data suggest that advanced stage solid tumors with intact mismatch repair (HARRIS) are less likely to be responsive to treatment with immunotherapies such as anti-PD-1 therapies [PMID 20482086, PMID 42020371]. However, lenvatinib in combination with pembrolizumab has been FDA-approved for patients with advanced endometrial carcinoma with intact mismatch repair (HARRIS) and who have disease progression following prior systemic therapy but are not candidates for curative surgery or radiation [PMID: 66310609, PMID: 68891710]. 1) CTNNB1 c.98C>G (p.S33C) (Exon 3) CTNNB1 encodes the beta-catenin protein. CTNNB1 mutations, particularly those in exon 3 (amino acids 5-81; [employer], v.2.8), have been associated with increased beta-catenin protein stability and activation of the Wnt pathway [PMID:63406185, PMID:10105400, PMID:14635176, PMID:00878084, PMID:62215791, PMID:73528227]. CTNNB1 can act as an oncogene and altered expression of beta-catenin can lead to abnormal signaling in various diseases, including modulation of gene material yard clerk to drive cancer initiation, progression, survival, and relapse [PMID:90916961]. CTNNB1 mutations have been reported in 14-20% of endometrial cancer samples [COSMIC, [employer]BioPortal for Cancer Genomics]. CTNNB1 mutation status aids in risk stratification in low-grade and early-stage endometrioid endometrial carcinomas [PMID: 20862566, PMID: 73266448]. CTNNB1 activating mutations have been described in several tumors including microcystic stromal tumors and low-grade endometrioid tumors and are of diagnostic relevance for desmoid-type fibromatosis [PMID:97516209, PMID:07550975, PMID:56137432, PMID:60697873, PMID:22643118 COSMIC, [employer]BioPortal for Cancer Genomics]. There are currently no known clinically approved therapies that specifically target CTNNB1 mutations. VARIANTS OF UNCERTAIN SIGNIFICANCE Multiple variants of uncertain significance were detected. The variants were not observed at significant frequency in population germline/cancer somatic variant databases nor predicted to be functionally significant based on variant type/in silico algorithm results. Additionally, there was no convincing published evidence of cancer association. Therefore, the clinical significance of the detected variants is unknown. 05/27/2025 10:53 AM CDT DTL Tissue (Endometrium) 05/07/2025 3:32 PM CDT 05/16/2025 12:39 PM CDT us Carmen Spears M.D. LAB GENETIC TESTING Fin al Result [facility] [address] [place] [address], [facility] DT [address] [place] [address] * Surgical Pathology, Frozen Lab (05/07/2025 2:25 PM CDT) 05/11/2025 4:45 PM CDT [facility] Participated in the Interpretation Khang Moyer M.D.-Pathology Fellow 05/11/2025 4:45 PM [facility] Report electronically signed by Gurwinder Latif M.D. I verify that I have examined all relevant slides/materials for the specimen(s) and rendered or confirmed the diagnosis. 05/11/2025 4:45 PM [facility] Frozen Intraoperative Report A. 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 The capsule is intact. The fallopian tube is unremarkable. C. Uterus with left ovary and fallopian tubes, hysterectomy and left salpingo-oophorec josephine: FIGO grade 1 (of 3) endometrioid carcinoma forms a 5 x 4.1 x 3.4 cm mass. The tumor invades 2.5 cm into a 4.5 cm thick myometrium (deepest invasion at anterior fundus). Angiolymphatic invasion is present. The cervix, left ovary and left fallopian tube are negative. Comment: The large size, deep myometrial invasion and presence of angiolymphatic involvement in the uterine endometrioid carcinoma would support a primary uterine tumor with metastasis to the ovary. F. Lymph nodes, right para-aortic, dissection: Multiple (5) lymph nodes negative. G. Lymph node, right para-aortic No. 2, biopsy: A single (1) lymph node is negative. H. Lymph nodes, left pelvic, sentinel biopsy: Multiple (2) lymph nodes are negative. I. Lymph node, right pelvic, sentinel biopsy: A single (1) lymph node is negative. D. Omentum, omentectomy: Reactive changes, negative for tumor. E. Peritoneum, small bowel mesentery, excision: Reactive changes, negative for tumor. Signed by Gurwinder Latif M.D. 05/07/2025 5:30 PM 05/11/2025 4:45 PM [facility] Gross Description A. Received fresh labeled right fallopian tube and right ovary is a 2025 g, 18 x 12 x 12 cm right ovarian mass with a solid intact capsule. The cut surface displays a solid and multiloculated cystic mass containing brown turbid fluid with a smooth lining. There is a 10.5 x 0.8 cm right fallopian tube, which is intact and erythematous. Frame Wirer tissue submitted for frozen and permanent sections. Photo taken. Grossed by Julius Stokes, P.A. ([facility]). B. Received fresh labeled peritoneal pelvic cyst is a 12.65 gram, 4.2 x 2.7 x 0.5 cm carrington-yellow cyst with an adherent 4.2 x 1.2 x 0.7 cm portion of dark red tissue. Also submitted is a 1.6 x 1.4 x 1.3 cm carrington-green, well-circumscribe d mass, which is bisected to reveal a solid, red-brown, grossly degenerated-appea ring cut surface. All submitted for permanent sections only. Grossed by Keyona Schroeder. C. Received fresh labeled uterus, left fallopian tube and left ovary is a 224 g uterus with cervix with attached left fallopian tube and ovary. The uterine serosa has focal fibrous adhesions. There is a 5 x 4.1 x 3.4 cm exophytic mass in the endometrial cavity, grossly invading 2.5 cm. The myometrial thickness is 4.5 cm. There are no uterine leiomyomas. There is a 3.2 x 1.2 x 0.8 cm left ovary with a smooth outer surface and a solid cut surface with a 6.5 x 0.7 cm left fallopian tube which is unremarkable. Frame Wirer tissue submitted for frozen and permanent sections. Grossed by Julius Stokes, P.A. ([facility]). D. Received fresh labeled omentum is a 55 x 20 x 1 cm portion of omentum. No masses are identified grossly. Lymph nodes are not identified. Frame Wirer tissue submitted for frozen and permanent sections. Grossed by Julius Stoeks, P.A. ([facility]). E. Received fresh labeled small bowel mesentery peritoneum is a 7.8 x 2.5 x 1.1 cm portion of unoriented peritonealized carrington-pink soft tissue. The cut surface is carrington-white and myxoid. Frame Wirer tissue submitted for frozen and permanent sections. Grossed by Julius Stokes, P.A. ([facility]). F. Received fresh labeled right para-aortic lymph nodes is a 3 x 2 x 2 cm aggregate of adipose and lymphatic tissue. Lymph nodes are submitted for frozen and permanent sections. Grossed by Julius Stokes, P.A. ([facility]). G. Received fresh labeled right para-aortic lymph node No. 2 is a 3.2 x 1.4 x 0.8 cm lymph node. The lymph node is submitted for frozen and permanent sections. Grossed by Julius Stokes, P.A. ([facility]). H. Received fresh labeled left pelvic sentinel lymph node are multiple (2) lymph nodes: (a) 1.0 x 0.8 x 0.8 cm and (b) 3.4 x 1.2 x 1.0 cm. All submitted for frozen and permanent sections. Grossed by Julius Stokes, P.A. ([facility]). I. Received fresh labeled right pelvic sentinel lymph node is a single 1.8 x 1.0 x 1.0 cm lymph node. All submitted for frozen and permanent sections. Grossed by Julius Stokes, P.A. ([facility]). J. Received fresh labeled appendix is an 8.2 x 0.8 cm appendix with smooth serosa. There is no grossed perforation. The lumen contains a fecalith. Frame Wirer tissue submitted for permanent sections. Grossed by Julius Stokes, P.A. ([facility]). K. Received fresh labeled left nguyen-colic flexure is a 5.8 x 3.0 x 2.0 cm portion of peritoneum with diffuse red stippling. Frame Wirer tissue submitted for permanent sections. Grossed by Julius Stokes, P.A. ([facility]). 05/11/2025 4:45 PM CDT METH Block Summary A Right fallopian tube and right ovary A1 Ovary 1 - frozen A2 Ovary 2 - frozen A3 Ovary 3 - frozen A4 Fimbria 1 - frozen A5 Fimbria 2 - frozen A6 Fallopian tube - frozen A7 Gnrcv-1-rbkqdq A8 Ehdln-6-onofxa A9 Ovary 6 A10 Ovary 7 A11 Ovary 8 A12 Ovary 9 A13 Ovary 10 B Peritoneal pelvic cyst B1 Pelvic peritoneal cyst-1 B2 Pelvic peritoneal cyst-2 B3 Pelvic peritoneal cyst-3 B4 Pelvic peritoneal mass-1 B5 Pelvic peritoneal mass-2 C Uterus, left fallopian tube and left ovary C1 Posterior serosal adhesions - frozen C2 Left ovary - frozen C3 Left fallopian tube - frozen C4 Left fimbria - frozen C5 Right adnexal nodule - frozen C6 Left ovary C7 Left ovary - frozen C8 Anterior cervix-frozen C9 Posterior cervix-frozen C10 Anterior endometrium-1 C11 Anterior sbiqgvyuvpp-1-nja nemo C12 Anterior endometrium-2 C13 Anterior fivqafttgff-8-wdi nemo C14 Posterior zrhrfcavofa-7-rww nemo C15 Posterior nbitaqgnuto-4-mod nemo C16 Posterior endometrium-3 C17 Posterior jlzehgfiust-1-agl nemo C18 Posterior endometrium-4 C19 Posterior spxbzaestmn-2-eue nemo C20 Posterior endometrium-5 C21 Posterior prnyhlnoeuy-2-hhb nemo C22 Myometrial interface-frozen C23 Mass 1 C24 Mass 2 C25 Mass 3 D Omentum D1 Omentum 1-frozen D2 Omentum 2-frozen D3 Omentum 3-frozen D4 Omentum 4-frozen E Small bowel mesentery peritoneum E1 Peritoneum 1-frozen E2 Peritoneum 2-frozen E3 Peritoneum 3-frozen F Right para aortic lymph node F1 Lymph node 1(F1)-frozen F2 Lymph node 1(F2)-frozen F3 Lymph node 1(F3) F4 Lymph node 1(F3)-frozen F5 Lymph node 2(F4)-frozen G Right para aortic lymph node #2 G1 Lymph node #2 1of2 (G1) - Frozen G2 Lymph node #2 2of2 (G1) - Frozen H Left pelvic sentinel lymph node H1 Max lymph node a - Frozen H2 Max lymph node b 1of2 - Frozen H3 Max lymph node b 2of2 - Frozen I Right pelvic sentinel lymph node I1 Max lymph node 1hp3-jtpcov I2 Max lymph node 3pn4-hgdiqp J Appendix J1 Distal tip 1 J2 Distal tip 2 J3 Cross sections K Left nguyen colic flexure K1 Nguyen-colic flexure 05/11/2025 4:45 PM CDT METH Addendum Integrated histologic-molecu lar classification of the endometrial carcinoma. Histological diagnosis: FIGO grade 1 endometrioid carcinoma p53 status by (molecular): Wild-type MMR status (IHC and molecular ): Proficient POLE hotspot mutation (by NGS): Not detected Molecular classification: No specific molecular profile (NSMP/copy number-low) For full [facility] report, please refer to [id number]. Signed by Gerri Ellis M.D. 05/27/2025 1:00 PM Test results for (IHC or PIERRE) testing are valid for specimens fixed between 6 and 72 hours. Delay to fixation, under fixation or over fixation fall outside of guidelines and may affect these results. MMR Protein, IHC Only, Tumor (IHC) will be performed and resulted in the patient's medical record. Signed by Marifer Cardozo M.D. 05/17/2025 5:10 PM Genetic testing for [facility] Endometrial Panel (MCECP) will be performed and resulted in the patient's medical record. Signed by Marifer Cardozo M.D. 05/14/2025 12:00 PM 05/27/2025 1:00 PM CDT METH Comment:REVISED RESULTS Interpretation FINAL DIAGNOSIS A. Ovary and fallopian tube, right, salpingo-oophorec josephine: FIGO grade 1-2 (of 3) endometrioid carcinoma forms an 18 cm, in greatest dimension, ovarian mass. The capsule is intact. The fallopian tube is negative for tumor. B. Peritoneum, peritoneal pelvic cyst, excision: Cyst and cyst contents containing macrophages with rare clusters of endometrioid carcinoma. C. Uterus, left ovary and fallopian tube, hysterectomy and left salpingo-oophorec josephine: FIGO grade 1 (of 3) endometrioid carcinoma forms a 5 x 4.1 x 3.4 cm mass uterine mass. The carcinoma invades to 2.5 cm into myometrium (myometrial thickness 4.5 cm). Extensive lymphovascular invasion is identified. Uterine serosa is not involved. The ovary contains a focus of FIGO grade 1 (of 3) endometrioid carcinoma, 0.2 cm, in greatest dimension. The cervix is unremarkable. See synoptic report. D. Omentum, omentectomy: Reactive changes, negative for tumor. E. Peritoneum, small bowel mesentery, excision: Reactive changes, negative for tumor. F. Lymph nodes, right para-aortic, dissection: Multiple (6) lymph nodes are negative. G. Lymph node, right para-aortic No. 2, biopsy: A single (1) lymph node is negative. H. Lymph nodes, left pelvic, sentinel biopsy: Metastatic adenocarcinoma in one (of two) lymph node. The metastasis consist of two cell clusters, both smaller than 0.5 mm, in greatest dimension (micrometastasis) . AE1/AE3 immunostains performed on parts H1,H2 and H3 are confirmatory. I. Lymph node, right pelvic, sentinel biopsy: Isolated tumor cells in one (of one) lymph node. AE1/AE3 immunostains performed on parts I1, I2 are confirmatory. J. Appendix, appendectomy: Appendix, negative for tumor. K. Peritoneum, left nguyen-colic flexure, excision: Fibroadipose tissue, negative for tumor. Digital imaging was used in the diagnostic assessment of this case. Comment: The findings support the primary site as endometrium rather than synchronous endometrioid carcinomas arising at multiple sites. Seen with Dr. Adrián Gallego. SYNOPTIC REPORT: Endometrial Carcinoma Procedure: Total hysterectomy and bilateral salpingo-oophorec josephine Specimen Integrity: Intact Tumor Site: Endometrium Tumor Size: Greatest dimension: 5.0 cm Additional dimensions: 4.1 x 3.4 cm Histologic Type: Endometrioid carcinoma, NOS Histologic Grade: FIGO grade 1 Myometrial Invasion: Present Depth of myometrial invasion: 25 mm Myometrial thickness: 45 mm Percentage of myometrial invasion: Estimated to be 50% or greater. Adenomyosis: Present, uninvolved by carcinoma Uterine Serosa Involvement: Not identified Lower Uterine Segment Involvement: Not identified Cervical Stromal Involvement: Not identified Other Tissue/Organs Involvement: Right ovary and Left ovary Peritoneal / Ascitic Fluid: Negative for malignant cells ([id number]) Lymphatic and / or Vascular Invasion: Present, Extensive / substantial (greater than or equal to 5 vessel involvement) Margin Status: All margins negative for invasive carcinoma. Regional Lymph Node Status Regional Lymph Nodes Present Tumor Present in Pelvic Lymph Nodes Total Number of Pelvic Nodes with Macrometastasis: 0 Total Number of Pelvic Nodes with Micrometastasis: 1 Total Number of Pelvic Nodes with Isolated Tumor Cells: 1 Laterality of Pelvic Nodes with Tumor: Left sentinel: Tumor Present in Para-aortic Lymph Nodes Total Number of Para-aortic Nodes with Macrometastasis: 0 Total Number of Para-aortic Nodes with Micrometastasis: 0 Total Number of Para-aortic Nodes with Isolated Tumor Cells: 0 Laterality of Para-aortic Nodes with Tumor: 0 Total Number of Pelvic Nodes Examined: 3 Number of Pelvic Max Nodes Examined: 3 Total Number of Para-aortic Nodes Examined: 7 Number of Para-aortic Max Nodes Examined: 0 Distant Metastasis: Not applicable Pathologic Staging (AJCC, 8th edition) Modified Classification : Not applicable pT Category:pT3A T Suffix: Not applicable pN Category: pN1mi N Suffix: (sn) pM Category: Not applicable FIGO Stage (2022): IIIC1 The synoptic report incorporates information from all relevant surgical material and includes all required data elements of the current CAP Cancer Protocol. 05/27/2025 1:00 PM CDT METH Tissue (Ovary, Right) 05/07/2025 2:25 PM CDT Comment:Please take pictures Tissue (Abdomen) 05/07/2025 2:30 PM CDT Tissue (Uterus) 05/07/2025 2 :48 PM CDT Tissue (Omentum) 05/07/2025 3:43 PM CDT Tissue (Small Bowel) 05/07/2025 3:48 PM CDT Tissue (Lymph Node) 05/07/2025 3:57 PM CDT Tissue (Lymph Node) 05/07/2025 4:31 PM CDT Tissue (Lymph Node, Max) 05/07/2025 4:31 PM CDT Tissue (Lymph Node, Max) 05/07/2025 4:38 PM CDT Tissue (Appendix) 05/07/2025 4:43 PM CDT Tissue (Colon) 05/07/2025 4: 49 PM CDT Carmen Spears M.D. LAB SURG PATH ORDERABLE S Edited Result - Final [facility] [address] [place] [address], [facility] METH [address] [place] [id number] * Cytology Non-DADO OPERATOR (05/07/2025 1:58 PM CDT) 05/10/2025 2:17 PM CDT DTL Participated in the Interpretation Ashlie Stein M.D. -Pathology Resident Akanksha Collado M.D., Ph.D. -Pathology Resident 05/10/2025 2:17 PM CDT DTL Report electronically signed by David Bautista.B.S., M.D. I verify that I have examined all relevant slides/materi als for the specimen(s) and rendered or confirmed the diagnosis. 05/10/2025 2:17 PM CDT DTL Gross Description Received 90 cc of orange fluid. 05/10/2025 2:17 PM CDT DTL Source A. Peritoneal, Pelvic, washing 05/10/2025 2:17 PM CDT DTL Interpretation A. Peritoneal, Pelvic, washing (ThinPrep): Negative for malignancy. 05/10/2025 2:17 PM CDT DTL Fluid (Peritoneal Fluid) 05/07/2025 1:58 PM CDT us Carmen Spears M.D. LAB SURG PATH ORDERABLE S Final Result Performing Organization Address City/State/[facility] Co de Phone Number [facility] [address] [place] [address], [facility] DTL [address] [place] [address] * LDA ANE ENDOTRACHEAL AIRWAY (05/07/2025 1:11 PM CDT) Narrative Tip Hernandez APRN, CRNA - 05/07/2025 1:11 PM CDT Tip Hernandez APRN, CRNA 05/07/2025 1:42 PM Airway Date/Time: 05/07/2025 1:11 PM Performed by: Tip Hernandez APRN, CRNA Authorized by: Gurwinder Riley M.D. Patient location during procedure: OR / Procedure Area PROCEDURE DETAILS: Mask difficulty assessment: easy mask Final airway type: video laryngoscope Laryngeal Manipulation: no Final best view of glottic structures - Cormack/Lehane Score: grade 1 ETT location: oral VL device: glide scope [place] scope blade size: 3 Tube size: 7 ETT distance at teeth/gum: 21 Oral tube type: standard ETT Cuffed: yes Leak Test Performed: no Number of attempt to successful placement: 1 Airway confirmation: bilateral breath sounds, positive ETCO2 and bilateral chest rise Other previous techniques attempted: none PRE PROCEDURE DETAILS: Pre evaluation for airway management: procedure Urgency: elective Preop assessment of probable difficulty: no difficulty anticipated Preoxygenation: bag valve mask SEDATION / ANESTHESIA Anesthesia method: anesthesia POST PROCEDURE DETAILS: Procedure outcome: successful Notable Events: no complications Gurwinder Riley M.D. ANESTHESIA ORDERABLES Ainsley ivey Result * Mismatch Repair (MMR) Protein Immunohistochemistry Only, Tumor (05/07/2025 11:36 AM CDT) MLH1 IHC Performed 5 8:31 AM CDT DTL MSH2 IHC Performed 5 8:31 AM CDT DTL MSH6 IHC Performed 5 8:31 AM CDT DTL PMS2 IHC Performed 5 8:31 AM CDT DTL Result Provided diagnosis: endometrial carcinoma IHC: Normal expression of MLH1, MSH2, MSH6, and PMS2 5 8:31 AM CDT DTL Specimen Tissue, Tumor 5 8:31 AM CDT DTL Tissue ID [id number] 5 8:31 AM CDT DTL Released By Usman MclainBGladisS., Ph.D. 5 8:31 AM CDT DTL Result Summary INTACT PROTEIN EXPRESSION 8:31 AM CDT DTL Interpretation The results of the IHC analysis suggest the presence of normal DNA mismatch repair function within the tumor. However, these results do not completely rule out the possibility of defective DNA mismatch repair within the tumor because approximately 5% of cases with defective mismatch repair do not show absence of protein expression by IHC (Mod Pathol. 2019;33(5):871-879 (PMID: 50199904)). THERAPEUTIC IMPLICATIONS Current data suggest that in advanced stage solid tumors, targeted immunotherapies such as anti-PD-1 therapies are more likely to be effective in mismatch repair-deficient tumors than in mismatch repair-proficient tumors (Science. 2017 Mar 29;357(5302):409- 413 (PMID 84688112); J Clin Oncol. 2018 Sep 20:[id number] (PMID 85909497)). For interpretation of therapeutic implications of these results, MSI analysis should be considered to confirm HARRIS/MSI-L status in this tumor due to the possibility of discordance between IHC and MSI results. HEREDITARY IMPLICATIONS These results decrease the likelihood but do not eliminate the possibility that this individual has Mckeon syndrome (LS). These results also do not exclude the possibility that this individual's tumor is due to an inherited defect in another gene not involved in DNA mismatch repair. A significant fraction of clinically defined LS cases (30% or more) do not have defective DNA mismatch repair as the underlying genetic basis of their disease. Additionally, we cannot rule out the possibility that this individual or family has LS because this tumor could represent a sporadic occurrence. If there is a strong personal or family history of LS related cancers for this individual or if this individual has multiple tumors, consider microsatellite instability (MSI) testing (MSI / Microsatellite Instability, Tumor) on this tumor or a different tumor to further evaluate the possible role of defective DNA mismatch repair for this individual or family. A genetic consultation may be of benefit. ADDITIONAL INFORMATION Consideration of these results, in light of other clinical information, may aid in clinical management decisions for this patient. These data should be interpreted in the context of the histopathologic findings. A surgical pathology consult may be ordered separately. 5 8:31 AM CDT DTL Comment: ----ADDITIONAL INFORMATION---- Immunohistochemical staining (IHC) is used to determine the presence or absence of protein expression for one or more of the following: MLH1, MSH2, MSH6, and PMS2. Lymphocytes and normal epithelium exhibit strong nuclear staining to serve as positive internal controls for staining of these proteins. MLH-1: specimen for MLH-1 immunohistochemistry studies (anti-MLH-1 clone ES05, [employer], [place], [place]; [employer] Optiview + Optiview AMP Detection) MSH-2 : specimen for MSH-2 immunohistochemistry studies (anti-MSH-2 clone [id number], [employer], [place], [place]; [employer] Polymer Refine Detection) MSH-6: specimen for MSH-6 immunohistochemistry studies (anti-MSH-6 clone SP93, [employer], [place], [place]; [employer] Optiview Detection) PMS-2: specimen for PMS-2 immunohistochemistry studies (anti-PMS-2 clone EP51, [employer], [place], [place]; [employer] Optiview + Optiview AMP Detection) Fixation:This test has been validated for nondecalcified paraffin-embedded tissue specimens fixed in 10% neutral-buffered formalin. Recommended fixation time is between 6 to 48 hours. This assay has not been validated on tissues subjected to the decalcification process or use of alternative fixatives Test results should be interpreted in the context of clinical findings, family history, and other laboratory data. If results obtained do not match other clinical or laboratory findings, please contact the laboratory for possible interpretation. Misinterpretation of results may occur if the information provided is inaccurate or incomplete. This test was developed and its performance characteristics determined by [facility] in a manner consistent with CLIA requirements. This test has not been cleared or approved by the U.S. Food and Drug Administration. Tissue (Endometrium) 05/07/2025 11:36 AM CDT 05/19/2025 11:38 AM CDT us Saúl Pratt P.A.-C. LAB GENETIC TESTING Final Result Performing Organization Address City/[facility]/ZIP Co de Phone Number [facility] [address] DTL [address] [place] [address] * [facility] Research, Blood (05/07/2025 10:49 AM CDT) Number of Specimens 5 05/07/2025 10:49 AM CDT HS Blood (Blood, Venous) 05/07/2025 10:49 AM CDT 05/07/2025 10:49 AM CDT Papa Hazel M.D. LAB RESEARCH NO RESULT ROUTING Final Result Performing Organization Address City/[facility]/ZIP Co de Phone Number [facility] [address] HSS [facility] 200 [place] [address] * Specimen-Pathology Image Exam (05/07/2025 12:00 AM CDT) Narrative IIMS - 05/07/2025 2:41 PM CDT This order has been created and auto-finalized to support the import of images acquired without order. The clinical documentation to support these images can be found on the encounter that produced images. us Provider Not In System IMG NON RAD IMAGING PROCE DURES Final Result IIMS NA from Last 3 Months Insurance [facility] Advance Directives For more information, please contact: [phone] * Full Code (Latest Code Status on File) Date Activated Date Inactivated Comments 05/07/2025 9:29 PM 05/10/2025 3:57 PM Question Answer Comments Full Code: Not Discussed Due to: Not medically appropriate * Full Code Date Activated Date Inactivated Comments 05/07/2025 10:23 AM 05/07/2025 9:29 PM Question Answer Comments Full Code: Discussed
--- OUTSIDE RECORDS SUMMARY | 2025-08-04 00:15 | XMS_ITS ---
Author Organization [facility] Address [address] [place] [address] Care Team Providers Care Cable Splicer Apprentice Name Role Phone Unavailable Primary Care Provider Unavailabl e Active Problems * This document contains information received from the source organization and may not represent a complete record from that organization. Problem Noted Date Diagnosed Date Anemia Iron [...] 2024 Mass Adnexal 04/23/2025 Lymphadenopathy Retroperitoneal 04/23/2025 Current Treatment and Therapy Plans No current plan information found. Other Current Plans Vascular Access Patency - Peripheral Intravenous Catheter and Rapid Infusion Catheter* Plan Start Date:05/06/2025 Linked Problems Anemia Iron Deficiency Treatment Medications No medications scheduled. Past Treatment and Therapy Plans Current Radiation Episodes * Radiation Therapy: EndometriumOverview* First Treatment Date Latest Treatment Date Treatment Site Technique Goal Episode Provider 07/07/2025 08/03/2025 Endometrium Curative * Linked Problems Malignant Neoplasm Of Uterus Endometrial Treatment Courses* Course 1xPelvis 07/07/2025 - 08/03/2025 Treatment Period Fraction Dose Fractions Total Dose Plans Planned [id number] 07/07/2025 - 08/03/2025 180 cGy 4 ,500 cGy Reference Points Delivered dpv 4500x 07/07/2025 - 08/03/2025 3,420 cGy
--- OUTSIDE RECORDS SUMMARY | 2025-08-04 00:16 | XMS_ITS | Encounter Summary ---
Author Organization [facility] Address [address] [place] [address] Care Team Providers Care Glass Glazier Name Role Phone Unavailable Primary Care Provider Unavailabl e Encounter Details Date Type Department Care Team (Late st Contact Info) Description 06/03/2025 Clinical Communication Department of Oncology in [place], [place] [address] [place] [address] Palak Nobles M.D. [address] [place] [address] Social History Tobacco Use Types Packs/Day Years [...] things needed for daily living? No 05/07/2025 [facility] Utilities Answer Date Recorded In the past 12 months has [employer], gas, oil, or water [employer] threatened to shut off services in your home? No 05/07/2025 Housing Stability Answer Date Recorded What is your living situation today? [facility] live 05/07/2025 Comments No Sex and Gender Information Value Date Recorded Sex Assigned at Female 04/16/2025 2:23 PM CDT Legal Sex Female 12:06 PM CDT Gender Identity Female 04/16/2025 2:23 PM CDT Sexual Orientation Straight 04/16/2025 2: 23 PM CDT documented as of this encounter Plan of Treatment Upcoming Encounters Date Type Department Care Team (Latest Contact Info) Description 08/04/2025 3:15 PM PHOTOGRAPHIC AIDE Appointment Department of Radiation Oncology in [place] [address] [place] [address] Sima Hall M.D. 200 [place] [address] 08/05/2025 10:15 AM PHOTOGRAPHIC AIDE Appointment Department of Radiation Oncology in [place] [address] [place] [address] Sima Hall M.D. [address] [place] [address] 08/06/2025 10:15 AM PHOTOGRAPHIC AIDE Appointment Department of Radiation Oncology in [place] [address] [place] [address] Sima Hall M.D. [address] [place] [phone] 08/09/2025 10:15 AM PHOTOGRAPHIC AIDE Appointment Department of Radiation Oncology in [place], [place] [address] [place] [phone] Sima Hall M.D. [address] [place] [phone] 08/10/2025 10:15 AM PHOTOGRAPHIC AIDE Appointment Department of Radiation Oncology in [address] [phone] Sima Hall M.D. [address] [place] [phone] 08/10/2025 10:30 AM PHOTOGRAPHIC AIDE Appointment Department of Radiation Oncology in [place], [place] [address] [place] [phone] Sima Hall M.D. [address] [place] [phone] 08/11/2025 10:15 AM PHOTOGRAPHIC AIDE Appointment Department of Radiation Oncology in [address] [phone] Sima Hall M.D. [address] [place] [phone] 08/16/2025 2:00 PM PHOTOGRAPHIC AIDE Appointment Department of Radiation Oncology in [place], [place] [address] [place] [phone] Soren Dueñas M.D. [address] [place] [phone] 08/18/2025 1:30 PM PHOTOGRAPHIC AIDE Appointment Department of Radiation Oncology in [place], [place] [address] [place] [phone] Soren Dueñas M.D. [address] [place] [phone] 09/20/2025 3:00 PM PHOTOGRAPHIC AIDE Clinical Communication Virtual Review in [place], [place] 200 [place] [phone] 09/23/2025 9:30 AM PHOTOGRAPHIC AIDE Comprehensive Visit [facility] in [place], [place] [address] [place] [phone] Laila Reed D.O., M.P.H. [address] [place] [phone] 09/24/2025 8:00 AM PHOTOGRAPHIC AIDE Comprehensive Visit Department of Oncology in [place], [place] [address] [place] [phone] Mago Lazcano P.A.-C., M.S. [address] [place] [phone] documented as of this encounter Visit Diagnoses Not on filedocumented in this encounter
--- OUTSIDE RECORDS SUMMARY | 2025-08-04 00:16 | XMS_ITS | Encounter Summary ---
Author Organization [facility] Address [address] [place] [address] Care Team Providers Care Green Chainer Name Role Phone Unavailable Primary Care Provider Unavailabl e Reason for Visit * Reason Onset Date Comments Genetic Testing 06/09/2025 Encounter Details Date Type Department Care Team (Latest Contact Info) Description 06/09/2025 Clinical Communication Department of Medical Genetics in [place], [place] [address] [place] [address] Gamaliel Torres M.D. [address] [place] [address] Genetic Testing Social History Tobacco Use Types Packs/Day Years [...] things needed for daily living? No 05/07/2025 [facility] Utilities Answer Date Recorded In the past 12 months has [employer] electric, gas, oil, or water company threatened to shut off services in your home? No 05/07/2025 Housing Stability Answer Date Recorded What is your living situation today? I have a [facility] place to live 05/07/2025 Comments No [...] (Latest Contact Info) Description 08/04/2025 3:15 PM COMMUNITY RESOURCE OFFICER Appointment Department of Radiation Oncology in [address] [phone] Sima Hall M.D. 200 [place] [address] 08/05/2025 10:15 AM COMMUNITY RESOURCE OFFICER Appointment Department of Radiation Oncology in [place] [address] [place] [address] Sima Hall M.D. 200 [place] [address] 08/06/2025 10:15 AM COMMUNITY RESOURCE OFFICER Appointment Department of Radiation Oncology in [address] [place] [address] Sima Hall M.D. [address] [place] [phone] 08/09/2025 10:15 AM COMMUNITY RESOURCE OFFICER Appointment Department of Radiation Oncology in [address] [address] Sima Hall M.D. [address] [place] [phone] 08/10/2025 10:15 AM COMMUNITY RESOURCE OFFICER Appointment Department of Radiation Oncology in [address] [address] Sima Hall M.D. [address] [place] [phone] 08/10/2025 10:30 AM COMMUNITY RESOURCE OFFICER Appointment Department of Radiation Oncology in [address] [address] Sima Hall M.D. [address] [place] [phone] 08/11/2025 10:15 AM COMMUNITY RESOURCE OFFICER Appointment Department of Radiation Oncology in [address] [address] Sima Hall M.D. [address] [place] [phone] 08/16/2025 2:00 PM COMMUNITY RESOURCE OFFICER Appointment Department of Radiation Oncology in [place], [place] [address] [place] [phone] Soren Dueñas M.D. [address] [place] [phone] 08/18/2025 1:30 PM COMMUNITY RESOURCE OFFICER Appointment Department of Radiation Oncology in [place], [place] [address] [place] [phone] Soren Dueñas M.D. [address] [place] [phone] 09/20/2025 3:00 PM COMMUNITY RESOURCE OFFICER Clinical Communication Virtual Review in [place], [place] 200 [place] [phone] 09/23/2025 9:30 AM COMMUNITY RESOURCE OFFICER Comprehensive Visit Menopause and Women's Sexual Health Clinic in [place], [place] [address] [place] [phone] Laila Reed D.O., M.P.H. [address] [place] [phone] 09/24/2025 8:00 AM COMMUNITY RESOURCE OFFICER Comprehensive Visit Department of Oncology in [place], [place] [address] [place] [phone] Mago Lazcano P.A.-C., M.S. [address] [place] [phone] documented as of this encounter Visit Diagnoses Not on filedocumented in this encounter
--- OUTSIDE RECORDS SUMMARY | 2025-08-04 00:17 | XMS_ITS | Encounter Summary ---
Author Organization [facility] Address [address] [place] [address] Care Team Providers Care Chemical Mixer Name Role Phone Unavailable Primary Care Provider Unavailabl e Encounter Details Date Type Department Care Team (Late st Contact Info) Description 06/21/2025 Results Follow-Up Department of Medical Genetics in [employer], [place] [address] [place] [address] Ludivina Myles [facility] [employer] [facility] Social History Tobacco Use Types Packs/Day Years [...] the money to buy more. Never true 09/05/20 25 Within the past 12 months, t [...] for daily living? No 05/07/2025 [facility] Utilities Answer Date Recorded In the past 12 months has th e electric, gas, oil, or water [employer] threatened to shut off services in your home? No 05/07/2025 Housing Stability Answer Date Recorded What is your living situation today? [facility] 05/07/2025 Comments No Sex [...] (Latest Contact Info) Description 08/04/2025 3:15 PM TEAM FACILITATOR Appointment Department of Radiation Oncology in [address] [address] Sima Hall M.D. 200 [place] [address] 08/05/2025 10:15 AM TEAM FACILITATOR Appointment Department of Radiation Oncology in [address] [phone] Sima Hall M.D. 200 [place] [address] 08/06/2025 10:15 AM TEAM FACILITATOR Appointment Department of Radiation Oncology in [address] [address] Sima Hall M.D. [address] [place] [phone] 08/09/2025 10:15 AM TEAM FACILITATOR Appointment Department of Radiation Oncology in [place], [place] [address] [place] [phone] Sima Hall M.D. [address] [place] [phone] 08/10/2025 10:15 AM TEAM FACILITATOR Appointment Department of Radiation Oncology in [place], [place] [address] [place] [phone] Sima Hall M.D. [address] [place] [phone] 08/10/2025 10:30 AM TEAM FACILITATOR Appointment Department of Radiation Oncology in [place], [place] [address] [place] [address] Sima Hall M.D. [address] [place] [phone] 08/11/2025 10:15 AM TEAM FACILITATOR Appointment Department of Radiation Oncology in [place] [address] [place] [address] Sima Hall M.D. [address] [place] [phone] 08/16/2025 2:00 PM TEAM FACILITATOR Appointment Department of Radiation Oncology in [place] [employer], [place] [address] [place] [phone] Soren Dueñas M.D. [address] [place] [phone] 08/18/2025 1:30 PM TEAM FACILITATOR Appointment Department of Radiation Oncology in [place] [employer], [place] [address] [place] [phone] Soren Dueñas M.D. [address] [place] [phone] 09/20/2025 3:00 PM TEAM FACILITATOR Clinical Communication Virtual Review in [place] [employer], [place] 200 [place] [phone] 09/23/2025 9:30 AM TEAM FACILITATOR Comprehensive Visit Menopause and Women's Sexual Health Clinic in [place] [employer] [employer], [place] [address] [place] [phone] Laila Reed D.O., M.P.H. [address] [place] [phone] 09/24/2025 8:00 AM TEAM FACILITATOR Comprehensive Visit Department of Oncology in [place] [employer], [place] [address] [place] [phone] Mago Lazcano P.A.-C., M.S. [address] [place] [phone] documented as of this encounter Visit Diagnoses Not on filedocumented in this encounter
--- OUTSIDE RECORDS SUMMARY | 2025-08-04 00:17 | XMS_ITS | Encounter Summary ---
Author Organization [facility] Address [address] [place] [address] Care Team Providers Care Waste Disposal Plant Operator Name Role Phone Unavailable Primary Care Provider Unavailabl e Encounter Details Date Type Department Care Team (Late st Contact Info) Description 06/24/2025 Orders Only Department of Radiation Oncology in [place], [place] [address] [place] [phone] Ludivina Mckenzie APRN, C.N.P., D.N.P. [address] [place] [phone] Malignant Neoplasm Of Uterus Endometrial (HCC) (Primary [...] Recorded In the past 12 months has [facility] electric, gas, oil, or water company threatened to shut off services in your home? No 05/07/2025 Housing Stability Answer Date Recorded What is your living situation today? I have a [facility] to live 05/07/2025 Comments No Sex [...] (Latest Contact Info) Description 08/04/2025 3:15 PM BOOK SEWER Appointment Department of Radiation Oncology in [place] [address] [place] [address] Sima Hall M.D. 200 [place] [address] 08/05/2025 10:15 AM BOOK SEWER Appointment Department of Radiation Oncology in [place] [address] [place] [address] Sima Hall M.D. 200 [place] [address] 08/06/2025 10:15 AM BOOK SEWER Appointment Department of Radiation Oncology in [address] [address] Sima Hall M.D. [address] [place] [phone] 08/09/2025 10:15 AM BOOK SEWER Appointment Department of Radiation Oncology in [address] [address] Sima Hall M.D. [address] [place] [phone] 08/10/2025 10:15 AM BOOK SEWER Appointment Department of Radiation Oncology in [address] [address] Sima Hall M.D. [address] [place] [phone] 08/10/2025 10:30 AM BOOK SEWER Appointment Department of Radiation Oncology in [address] [phone] Sima Hall M.D. [address] [place] [phone] 08/11/2025 10:15 AM BOOK SEWER Appointment Department of Radiation Oncology in [place] [address] [place] [address] Sima Hall M.D. [address] [place] [phone] 08/16/2025 2:00 PM BOOK SEWER Appointment Department of Radiation Oncology in [place], [place] [address] [place] [phone] Soren Dueñas M.D. [address] [place] [phone] 08/18/2025 1:30 PM BOOK SEWER Appointment Department of Radiation Oncology in [address] [phone] Soren Dueñas M.D. [address] [place] [phone] 09/20/2025 3:00 PM BOOK SEWER Clinical Communication Virtual Review in [place], [place] 200 [place] [address] 09/23/2025 9:30 AM BOOK SEWER Comprehensive Visit Menopause and Women's Sexual Health Clinic in [address] [phone] Laila Reed D.O., M.P.H. [address] [place] [phone] 09/24/2025 8:00 AM BOOK SEWER Comprehensive Visit Department of Oncology in [address] [address] Mago Lazcano P.A.-C., M.S. [address] [place] [phone] documented as of this encounter Visit Diagnoses Diagnosis Malignant Neoplasm Of Uterus Endometrial (HCC)- Primary documented in this encounter
--- OUTSIDE RECORDS SUMMARY | 2025-08-04 00:17 | XMS_ITS | Encounter Summary ---
Author Organization [facility] Address [address] [place] [address] Care Team Providers Care Pet Supplies Salesperson Name Role Phone Unavailable Primary Care Provider Unavailabl e Reason for Visit * Reason Comments Genetic Testing Results: Negative Encounter Details Date Type Department Care Team (Late st Contact Info) Description 06/21/2025 Documentation Department of Medical Genetics in [place], [place] [address] [place] [address] Ludivina Myles Genetic Testing Results: Negative Social History Tobacco Use Types Packs/Day Years [...] things needed for daily living? No 05/07/2025 [facility] Utilities Answer Date Recorded In the past 12 months has th e electric, gas, oil, or water [employer] threatened to shut off services in your home? No 05/07/2025 Housing Stability Answer Date Recorded What is your living situation today? I have a [facility] place to live 05/07/2025 Comments No Sex and Gender Information Value Date Recorded Sex Assigned at Female 04/16/2025 2:23 PM CDT Legal Sex Female 12:06 PM CDT Gender Identity Female 04/16/2025 2:23 PM CDT Sexual Orientation Straight 04/16/2025 2: 23 PM CDT documented as of this encounter Progress Notes * Ludivina Myles R - 06/21/2025 12:52 PM CDT Images from the original note were not included. CHIEF COMPLAINT/PURPOSE Germline genetic testing results. No pathogenic variants identified. See below for genetic test result interpretation and screening recommendations. HISTORY OF PRESENT ILLNESS April Chen was seen in the Department of Clinical Genomics on 06/09/2025 due to a personal diagnosis/history of cancer. April elected to pursue the Multi-Cancer panel through [facility]. These results were communicated to the patient via the patient online services portal by our genetic counseling golf player assistant. RESULTS Germline genetic testing included sequence analysis and deletion/duplication analysis of 70 genes associated with hereditary cancer. For a full list of genes included in the analysis, please refer tothe genetic test report scanned into the patient's chart (document viewer tab). The patient's germline genetic testing was negative/normal, meaning no pathogenic variants (mutations) or variants of uncertain significance were detected by this testing. The fact that no pathogenic variants were detected in the genes for which April was tested is reassuring. However, the fact that a pathogenic variant was not identified does not eliminate the possibility that the patient and/or their family members have a hereditary susceptibility to cancer. Genetic testing has less than 100% sensitivity, meaning there is a small possibility that a pathogenicvariant exists in one of the genes analyzed which cannot be identified by current testing methodology. It is possible that pathogenic variants in cancer susceptibility genes which have not yet been discovered may be contributing to the personal and/or family history of cancer. It is also possible that there is a hereditary susceptibility to cancer that has affected the patient's family members, that April simply did not inherit. Affected family members (e.g. those with a cancer diagnosis themselves) may wish to pursue their own genetic testing to further clarify the family's risk. A negative genetic testing result does not mean that someone will not develop cancer in their lifetime. PERSONAL AND FAMILY SCREENING RECOMMENDATIONS Given that a hereditary susceptibility to cancer has not been identified by genetic testing, it is generally recommended to screen patients and their family members based on their personal and/or family histories of cancer. It is important for the patient to continue to follow any cancer treatment,management, and/or screening recommendations as directed by their managing provider. Individuals with a uterus who have a first- or second-degree relative with uterine cancer likely remain at an elevated empiric risk for uterine cancer. Individuals with a uterus in this family are encouraged to respond promptly to endometrial cancer symptoms (e.g. dysfunctional uterine bleeding). Screening for endometrial cancer, including transvaginal ultrasound and office endometrial sampling, or the possibility of prophylactic hysterectomy may be considered. The National Comprehensive Cancer Network recommends that women with a first- or second-degree relative diagnosed with breast cancer undergo breast cancer screening beginning 10 years younger than the earliest age of a breast cancer diagnosis in the family, but no later than age 40. Thus, women in this family should begin breast cancer screening at age 30-35. Screening may include breast self-examinations, clinical breast examinations, mammograms, and possibly breast MRIs, to be performed as directed by their physicians. These screening recommendations are based on national guidelines. Final screening recommendations should be deferred to the discretion of the managing physician. Other screening recommendations, suchas those made by the [place] [employer], do remain appropriate. FOLLOW UP/RECOMMENDATIONS It is recommended that April contact our clinic if there are changes to their personal or family history of cancer, as this information may change our genetic testing recommendations. Additionally, the patient is welcome to contact our clinic periodically, as our genetic testing options will likely improve over time. The patient is welcome to contact our clinic with any questions. Cosigned by Glenny Michele M.S., [facility] at 06/21/2025 4:35 PM CDT documented in this encounter Plan of Treatment Upcoming Encounters Date Type Department Care Team (Latest Contact Info) Description 08/04/2025 3:15 PM TIE HACKER Appointment Department of Radiation Oncology in [address] [address] Sima Hall M.D. [address] [place] [phone] 08/05/2025 10:15 AM TIE HACKER Appointment Department of Radiation Oncology in [address] [address] Sima Hall M.D. [address] [place] [phone] 08/06/2025 10:15 AM TIE HACKER Appointment Department of Radiation Oncology in [address] [address] Sima Hall M.D. [address] [place] [phone] 08/09/2025 10:15 AM TIE HACKER Appointment Department of Radiation Oncology in [address] [address] Sima Hall M.D. [address] [place] [phone] 08/10/2025 10:15 AM TIE HACKER Appointment Department of Radiation Oncology in [place], [place] [address] [place] [address] Sima Hall M.D. [address] [place] [phone] 08/10/2025 10:30 AM TIE HACKER Appointment Department of Radiation Oncology in [place], [place] [address] [place] [address] Sima Hall M.D. [address] [place] [phone] 08/11/2025 10:15 AM TIE HACKER Appointment Department of Radiation Oncology in [place], [place] [address] [place] [address] Sima Hall M.D. [address] [place] [phone] 08/16/2025 2:00 PM TIE HACKER Appointment Department of Radiation Oncology in [place], [place] [address] [place] [phone] Soren Dueñas M.D. [address] [place] [phone] 08/18/2025 1:30 PM TIE HACKER Appointment Department of Radiation Oncology in [place], [place] [address] [place] [phone] Soren Dueñas M.D. [address] [place] [phone] 09/20/2025 3:00 PM TIE HACKER Clinical Communication Virtual Review in [place], [place] [address] [place] [address] 09/23/2025 9:30 AM TIE HACKER Comprehensive Visit Menopause and Women's Sexual Health Clinic in [place], [place] [address] [place] [phone] Laila Reed D.O., M.P.H. [address] [place] [phone] 09/24/2025 8:00 AM TIE HACKER Comprehensive Visit Department of Oncology in [place], [place] [address] [place] [phone] Mago Lazcano P.A.-C., M.S. [address] [place] [phone] documented as of this encounter Visit Diagnoses Not on filedocumented in this encounter
--- OUTSIDE RECORDS SUMMARY | 2025-08-04 00:18 | XMS_ITS | Encounter Summary ---
Author Organization [facility] Address [address] [place] [address] Care Team Providers Care Dog Raiser Name Role Phone Unavailable Primary Care Provider Unavailabl e Reason for Referral * Radiation Therapy (Routine) - Pending Review Specialty Diagnoses / Procedures Referred By Alicia ferguson Referred To Contact Diagnoses Malignant Neoplasm Of Uterus Endometrial (HCC) Procedures Brachytherapy HDR Brachytherapy HDR Soren Dueñas M.D. [address] [place] [phone] Phone: tel: fax: [facility] Referral ID Status Reason Start Date Expiration Date V isits Requested Visits Authorized [id number] Pending Review 08/16/2025 10/02/2026 2 2 Encounter Details Date Type Department Care Team (Late st Contact Info) Description 07/02/2025 Orders Only Department of Radiation Oncology in [place], [place] [address] [place] [phone] Soren Dueñas M.D. [address] [place] [phone] Malignant Neoplasm Of Uterus Endometrial (HCC) (Primary [...] your living situation today? I have a [facility] place to live 05/07/2025 Comments [...] (Latest Contact Info) Description 08/04/2025 3:15 PM BOSTON CUTTER Appointment Department of Radiation Oncology in [place], [place] [address] [place] [address] Sima Hall M.D. [address] [place] [phone] 08/05/2025 10:15 AM BOSTON CUTTER Appointment Department of Radiation Oncology in [address] [address] Sima Hall M.D. [address] [place] [phone] 08/06/2025 10:15 AM BOSTON CUTTER Appointment Department of Radiation Oncology in [address] [address] Sima Hall M.D. [address] [place] [phone] 08/09/2025 10:15 AM BOSTON CUTTER Appointment Department of Radiation Oncology in [address] [address] Sima Hall M.D. [address] [place] [phone] 08/10/2025 10:15 AM BOSTON CUTTER Appointment Department of Radiation Oncology in [address] [address] Sima Hall M.D. [address] [place] [phone] 08/10/2025 10:30 AM BOSTON CUTTER Appointment Department of Radiation Oncology in [address] [address] Sima Hall M.D. [address] [place] [phone] 08/11/2025 10:15 AM BOSTON CUTTER Appointment Department of Radiation Oncology in [place], [place] [address] [place] [address] Sima Hall M.D. [address] [place] [phone] 08/16/2025 2:00 PM BOSTON CUTTER Appointment Department of Radiation Oncology in [place], [place] [address] [place] [phone] Soren Dueñas M.D. [address] [place] [phone] 08/18/2025 1:30 PM BOSTON CUTTER Appointment Department of Radiation Oncology in [place], [place] [address] [place] [phone] Soren Dueñas M.D. [address] [place] [phone] 09/20/2025 3:00 PM BOSTON CUTTER Clinical Communication Virtual Review in [place], [place] 200 [place] [address] 09/23/2025 9:30 AM BOSTON CUTTER Comprehensive Visit Menopause and Women's Sexual Health Clinic in [place], [place] [address] [place] [phone] Laila Reed D.O., M.P.H. [address] [place] [phone] 09/24/2025 8:00 AM BOSTON CUTTER Comprehensive Visit Department of Oncology in [place], [place] [address] [place] [phone] Mago Lazcano P.A.-C., M.S. [address] [place] [phone] documented as of this encounter Visit Diagnoses Diagnosis Malignant Neoplasm Of Uterus Endometrial (HCC)- Primary documented in this encounter
--- OUTSIDE RECORDS SUMMARY | 2025-08-04 00:19 | XMS_ITS | Encounter Summary ---
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 [place] [address] Assigned Cancer Care Provider 08/24/24 Emeli Romo MD [address] [place], [place] [phone] Physician Gynecologic Oncology 04/01/25 documented as of this encounter
--- OUTSIDE RECORDS SUMMARY | 2025-08-04 00:19 | XMS_ITS | Encounter Summary ---
Author Organization [facility] Address [address] [place] [address] Care Team Providers Care Keyboard Specialist Name Role Phone Unavailable Primary Care Provider Unavailabl e Encounter Details Date Type Department Care Team (Latest Contact Info) Description 05/20/2025 Results Follow-Up Department of Obstetrics and Gynecology, Division of Gynecologic Oncology in [place], [place] [address] [place] [address] Saúl Pratt P.A.-C. [address] [place] [address] Mismatch Repair (MMR) Protein Immunohistochemistry Only, Tumor Social History Tobacco Use Types Packs/Day Years [...] things needed for daily living? No 05/07/2025 [facility] Utilities Answer Date Recorded In the past 12 months has e electric, gas, oil, or water company threatened to shut off services in your home? No 05/07/2025 Housing Stability Answer Date Recorded What is your living situation today? I have a [facility] place to live 05/07/2025 Comments No Sex [...] (Latest Contact Info) Description 08/04/2025 3:15 PM WARD MAID Appointment Department of Radiation Oncology in [address] [address] Sima Hall M.D. 200 [place] [address] 08/05/2025 10:15 AM WARD MAID Appointment Department of Radiation Oncology in [address] [address] Sima Hall M.D. 200 [place] [address] 08/06/2025 10:15 AM WARD MAID Appointment Department of Radiation Oncology in [address] [place] [address] Sima Hall M.D. [address] [place] [phone] 08/09/2025 10:15 AM WARD MAID Appointment Department of Radiation Oncology in [address] [address] Sima Hall M.D. [address] [place] [phone] 08/10/2025 10:15 AM WARD MAID Appointment Department of Radiation Oncology in [address] [address] Sima Hall M.D. [address] [place] [phone] 08/10/2025 10:30 AM WARD MAID Appointment Department of Radiation Oncology in [address] [address] Sima Hall M.D. [address] [place] [phone] 08/11/2025 10:15 AM WARD MAID Appointment Department of Radiation Oncology in [address] [address] Sima Hall M.D. [address] [place] [phone] 08/16/2025 2:00 PM WARD MAID Appointment Department of Radiation Oncology in [place], [place] [address] [place] [phone] Soren Dueñas M.D. [address] [place] [phone] 08/18/2025 1:30 PM WARD MAID Appointment Department of Radiation Oncology in [place], [place] [address] [place] [phone] Soren Dueñas M.D. [address] [place] [phone] 09/20/2025 3:00 PM WARD MAID Clinical Communication Virtual Review in [place], [place] 200 [place] [phone] 09/23/2025 9:30 AM WARD MAID Comprehensive Visit [facility] and [facility] Sexual [facility] Clinic in [address] [phone] Laila Reed D.O., M.P.H. [address] [place] [phone] 09/24/2025 8:00 AM WARD MAID Comprehensive Visit Department of Oncology in [address] [phone] Mago Lazcano P.A.-C., M.S. [address] [place] [phone] documented as of this encounter Visit Diagnoses Not on filedocumented in this encounter
--- OUTSIDE RECORDS SUMMARY | 2025-08-04 00:19 | XMS_ITS | Encounter Summary ---
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 [place] [address] Assigned Cancer Care Provider 08/24/24 Emeli Romo MD [address] [place], [place] [address] Physician Gynecologic Oncology 04/01/25 documented as of this encounter
--- OUTSIDE RECORDS SUMMARY | 2025-08-04 00:19 | XMS_ITS ---
Author Organization [place] Address [facility] [place] [address] Care Team Providers Care Plant Attendant Or Assistant Operator Name Role Phone Linda Barros PA-C Primary Care Provider Alannah Bateman PA-C Unavailable [phone] Emeli Romo MD Unavailable [phone] Active Problems Problem Noted Date Diagnosed Date Endometrial cancer 04/05/2025 Bilateral pulmonary embolism 03/28/2025 Acute pulmonary embolism, un specified pulmonary embolism type, unspecified whether acute cor pulmonale present 06/02/2024 Current Treatment and Therapy Plans OP VIDEO SOFTWARE ENGINEER/ONC Ovarian or Uterine Cancer - PACLitaxel / CARBOplatin* Plan Start Date:04/07/2025 Plan Provider:Emeli Romo MD Linked Problems Endometrial cancer (H) Treatment Medications Current Day (Day 1 , Cycle 1 - Planned for 04/13/2025) Next Day (Day 1, Cycle 2 - Planned for 05/04/2025) CARBOplatin (PARAPLATIN)CARBOplatin (PARAPLATIN) infusion (by AUC) in 250 mLPACLitaxel (TAXOL)PACLitaxel (TAXOL) infusion (500 mL) CARBOplatin 590 mg in sodium chloride 0.9 % 309 mL infusionPACLitaxel (TAXOL) 341 mg in sodium chloride 0.9% in non-PVC container 556.83 mL infusion CARBOplatin 590 mg in sodium chloride 0.9 % 309 mL infusionPACLitaxel (TAXOL) 341 mg in sodium chloride 0.9% in non-PVC container 556.83 mL infusion Past Treatment and Therapy Plans No past plan information found.
--- OUTSIDE RECORDS SUMMARY | 2025-08-04 00:19 | XMS_ITS ---
Author Organization [facility] Address [address] [place] [address] Care Team Providers Care Manager Women Name Role Phone Unavailable Primary Care Provider Unavailabl e Genomics Program Status:Closed (Closed) Start date:06/09/2025 Enrollment date:06/09/2025 End date:06/21/2025 Close reason:Care Complete Overview Provider: Glenny Michele CGC Date scheduled: 06-09-25 Test: [facility]: [facility] doing insurance check: [facility] will handle Continued Care and Services Coordination
--- OUTSIDE RECORDS SUMMARY | 2025-08-04 00:19 | XMS_ITS | Clinical Summary ---
Author Organization [place] Address [facility] [place] [address] Care Team Providers Care Machine Edge Bander Name Role Phone Linda Barros PA-C Primary Care Provider Alannah Bateman PA-C Unavailable [phone] Emeli Romo MD Unavailable + [phone] Allergies No known active allergies Medications buPROPion (WELLBUTRIN XL) 150 MG 24 hr tablet Take 150 mg by mouth every morning. Active venlafaxine (EFFEXOR XR) 75 MG 24 hr capsule Take 75 mg by mouth daily. Active multivitamin, therapeutic (THERA-VIT) TABS tablet Take 1 tablet by mouth daily. Active fish oil-omega-3 fatty acids 1000 MG capsule Take 1 g by mouth daily. Active Probiotic Product (PROBIOTIC PO) Take 1 capsule by mouth daily. Active acetaminophen (TYLENOL) 325 MG tabletIndications: Acute pulmonary embolism, unspecified pulmonary embolism type, unspecified whether acute cor pulmonale present (H) Take 2 tablets (650 mg) by mouth every 4 hours as needed for mild pain or other (and adjunct with moderate or severe pain or per patient request). 5 Active rivaroxaban ANTICOAGULANT (XARELTO) 20 MG TABS tabletIndications: Acute pulmonary embolism, unspecified pulmonary embolism type, unspecified whether acute cor pulmonale present (H) 15 mg twice daily with food for 3 weeks, then 20 mg once daily with food (NOTE: will need 42 15 mg tablets the first time this is filled) 60 tablet 1 5 Active prochlorperazine (COMPAZINE) 10 MG tabletIndications: Endometrial cancer (H) Take 1 tablet (10 mg) by mouth every 6 hours as needed for nausea or vomiting. 30 tablet 2 5 Active ondansetron (ZOFRAN) 8 MG tabletIndications: Endometrial cancer (H) Take 1 tablet (8 mg) by mouth every 8 hours as needed for nausea (vomiting). 30 tablet 2 5 Active dexAMETHasone (DECADRON) 4 MG tabletIndications: Endometrial cancer (H) Take 2 tablets (8 mg) by mouth daily. Take for 3 days, starting the day after chemo. Take with food. 6 tablet 5 5 Active lidocaine-prilocai ne (EMLA) 2.5-2.5 % external creamIndications:E ndometrial cancer (H) Apply topically as needed (pain due to port access). Apply to port 30 minutes prior to lab appointment. 30 g 6 5 Active Active Problems Problem Noted Date Diagnosed Date Endometrial cancer 04/05/2025 Bilateral pulmonary embolism 03/28/2025 Acute pulmonary embolism, un specified pulmonary embolism type, unspecified whether acute cor pulmonale present 06/02/2024 Encounters Date Type Department Care Team Description 06/28/2025 8:49 AM CDT - 06/28/2025 11:59 PM CDT Hospital Encounter [address], [address] [place] [address] Linda Barros PA-C Visit for screening mammogram Discharge Disposition: Home or Self Care 06/28/2025 Travel 06/23/2025 Travel from Last 3 Months Family History Medical History Relation Comments Clotting Disorder No family hx of Social History Tobacco Use Types Packs/Day Years Used Date Smoking Tobacco: Never Tobacco Cessation:Counseling Given: Not Answered Alcohol Use Standard Drinks/Week Comments Not Currently [...] Answer Date Recorded Do you have housing? 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 Gender Identity Not on file Sexual Orientation Not on file Last Filed Vital Signs Vital Sign Reading Time Taken Comments Blood Pressure 146/99 04/05/2025 12:24 PM CDT Pulse 91 04/05/2025 12:24 PM CDT Temperature 36.5 C (97.7 F) 03/31/2025 7:34 AM CDT Respiratory Rate 16 04/05/2025 12:24 PM CDT Oxygen Saturation 96% 04/05/2025 12:24 PM CDT Inhaled Oxygen Concentration - - Weight 84.2 kg (185 lb 10 oz) 04/05/2025 12:24 P M CDT Height 162.6 cm (5' 4) 04/05/2025 12:24 PM CDT Body Mass Index 31.86 04/05/2025 12:24 PM CDT Plan of Treatment Health Maintenance Due Date Last Done Comments ADVANCE CARE PLANNING 1972 ANNUAL REVIEW OF HM ORDERS 1972 CT COLONOGRAPHY 1972 FIT 1972 FLEX SIG 1972 YEARLY PREVENTIVE VISIT 1975 COLONOSCOPY 1982 HEPATITIS B VACCINE (1 of 3 - 19+ 3-dose series) 1991 PAP 1993 LIPID 2012 PHQ-2 (once per calendar year) 2024 COVID-19 VACCINE (7 - Pfizer risk 2024- season) 2025 06/10/2025, 07/24/2024, 05/31/2022, Additional history exists MAMMO SCREENING 06/28/2027 06/28/2025, 1109/2023, 06/19/2024, Additional history exists DIABETES SCREENING 03/30/2028 03/30/2025, 0 03/29/2025, 03/29/2025, Additional history exists COLORECTAL CANCER SCREENING 04/19/2028 sDNA (Cologuard) 04/19/2028 04/19/2025, 04/19/2025 DTAP/TDAP/TD VACCINE (2 - Td or Tdap) 10/25/2030 10/25/2020 ZOSTER VACCINE Completed 06/22/2023, 03/04/2023 PNEUMOCOCCAL VACCINE 50+ YEARS Completed 04/07/2025 HEPATITIS C SCREENING Completed 05/07/2025 HIV SCREENING Completed 05/07/2025, 05/07/2025 INFLUENZA VACCINE Completed 06/10/2025, , 06/22/2023, Additional history exists HPV VACCINE (No Doses Required) Completed MENINGITIS VACCINE Aged Out No longer eligible based on patient's age to complete this topic Procedures Procedure Name Priority Date/Time Associated Diagnosis Comments MA SCREENING BILATERAL W/ JOSE Routine 06/28/2025 9:02 AM CDT Visit for screening mammogram BASIC METABOLIC PANEL (LIMITED OCCURRENCES) Routine 03/30/2025 9:37 AM CDT from Last 3 Months or Most Recently Relevant to Health Maintenance Results * MA Screening Bilateral w/ Jose [...] radiographic evidence of malignancy. Linda Barros PA-C [facility] ORDERA BLES Final Result * (ABNORMAL) Basic Metabolic Panel (Limited Occurrences) (03/30/2025 9:37 AM CDT) Sodium 137 135 - 145 mmol/L 03/30/2025 10:27 AM CDT LABORATORY Potassium 3.8 3.4 - 5.3 mmol/L 03/30/2025 10:27 AM CDT LABORATORY Chloride 106 98 - 107 mmol/L 03/30/2025 10:27 AM [facility] Carbon Dioxide (CO2) 16(L) 22 - 29 mmol/L 03/30/2025 10:27 AM CDT LABORATORY Anion Gap 15 7 - 15 mmol/L 03/30/2025 10:27 AM CDT LABORATORY Urea Nitrogen 20.8(H) 6.0 - 20.0 mg/dL 03/30/2025 10:27 AM CDT LABORATORY Creatinine 0.94 0.51 - 0.95 mg/dL 03/30/2025 10:27 AM CDT LABORATORY GFR Estimate 73 >60 mL/min/1.7 3m2 03/30/2025 10:27 AM T LABORATORY Comment:eGFR calculated usin 2020 CKD-EPI equation. Calcium 8.8 8.8 - 10.4 mg/dL 03/30/2025 10:27 AM CDT LABORATORY Glucose 85 70 - 99 mg/dL 03/30/2025 10:27 AM CDT LABORATORY Blood BLOOD SPECIMEN / Unknown Venipuncture / Unknown 03/30/2025 9:37 AM CDT 03/30/2025 9:59 AM CDT April Conte PA-C LAB - BLOOD ORDERAB LES Final Result LABORATORY [facility] [address], [address] [place] [address], [facility] [phone] from Last 3 Months or Most Recently Relevant to Health Maintenance [place] [facility] [place] Address: [facility] [id number] [place] [id number] Advance Directives For more information, please contact: [phone] * Full Code (Latest Code Status on File) Date Activated Date Inactivated Comments 03/29/2025 12:05 AM 03/31/2025 1:55 PM All basic a nd advanced life-sustaining interventions are performed as appropriate Question Answer Comments Code status determined by: Discussion with patie nt/ legal decision maker * Full Code Date Activated Date Inactivated Comments 06/02/2024 9:32 PM 06/04/2024 5:16 PM All basic an d advanced life-sustaining interventions are performed as appropriate Question Answer Comments Code status determined by: Discussion with patie nt/ legal decision maker Care Teams Machine Edge Bander Relationship Specialty Start Date End Date Linda Barros PA-C [address] [facility] [address] [place], [place] [phone] PCP - General Physician Analytics Senior Manager 05/30/23 Alannah Bateman PA-C [address] [place] [address] Assigned Cancer Care Provider 08/24/24 Emeli Romo MD [address] [place] [address] Physician Gynecologic Oncology 04/01/25
--- OUTSIDE RECORDS SUMMARY | 2025-08-04 00:19 | XMS_ITS | Encounter Summary ---
Author Organization [facility] Address [address] [place] [address] Care Team Providers Care Business Center Representative Name Role Phone Unavailable Primary Care Provider Unavailabl e Encounter Details Date Type Department Care Team (Late st Contact Info) Description 04/08/2025 Orders Only Department of Oncology in [place], [place] [address] [place] [phone] [facility], Provider, Malignant Neoplasm Of Uterus Endometrial (HCC) Social History Tobacco Use Types Packs/Day Years Used Date Smoking Tobacco: Never Assessed Comments Unknown Sex and Gender Information Value Date Recorded Sex Assigned at Female 04/16/2025 2:23 PM CDT Legal Sex Female 12:06 PM CDT Gender Identity Female 04/16/2025 2:23 PM CDT Sexual Orientation Straight 04/16/2025 2: 23 PM CDT documented as of this encounter Plan of Treatment Upcoming Encounters Date Type Department Care Team (Latest Contact Info) Description 08/04/2025 3:15 PM MUSIC ARRANGER Appointment Department of Radiation Oncology in [place], [place] [address] [place] [address] Sima Hall M.D. 200 [place] [address] 08/05/2025 10:15 AM MUSIC ARRANGER Appointment Department of Radiation Oncology in [place], [place] [address] [place] [address] Sima Hall M.D. 200 [place] [phone] 08/06/2025 10:15 AM MUSIC ARRANGER Appointment Department of Radiation Oncology in [address] [address] Sima Hall M.D. [address] [place] [phone] 08/09/2025 10:15 AM MUSIC ARRANGER Appointment Department of Radiation Oncology in [address] [phone] Sima Hall M.D. [address] [place] [phone] 08/10/2025 10:15 AM MUSIC ARRANGER Appointment Department of Radiation Oncology in [address] [phone] Sima Hall M.D. [address] [place] [phone] 08/10/2025 10:30 AM MUSIC ARRANGER Appointment Department of Radiation Oncology in [address] [phone] Sima Hall M.D. [address] [place] [phone] 08/11/2025 10:15 AM MUSIC ARRANGER Appointment Department of Radiation Oncology in [address] [phone] Sima Hall M.D. [address] [place] [phone] 08/16/2025 2:00 PM MUSIC ARRANGER Appointment Department of Radiation Oncology in [place], [place] [address] [place] [phone] Soren Dueñas M.D. [address] [place] [phone] 08/18/2025 1:30 PM MUSIC ARRANGER Appointment Department of Radiation Oncology in [place], [place] [address] [place] [phone] Soren Dueñas M.D. [address] [place] [phone] 09/20/2025 3:00 PM MUSIC ARRANGER Clinical Communication Virtual Review in [place], [place] 200 [place] [phone] 09/23/2025 9:30 AM MUSIC ARRANGER Comprehensive Visit Menopause and Women's Sexual Health Clinic in [address] [phone] Laila Reed D.O., M.P.H. [address] [place] [phone] 09/24/2025 8:00 AM MUSIC ARRANGER Comprehensive Visit Department of Oncology in [place], [place] [address] [place] [phone] Mago Lazcano P.A.-C., M.S. [address] [place] [phone] documented as of this encounter Visit Diagnoses Diagnosis Malignant Neoplasm Of Uterus Endometrial (HCC) documented in this encounter
== END 2025-08-03 16:22 | disposition home or self-care (01) ==
LOC: NPINS 16:21
PROVIDERS: Visit Provider Radiology Radiation Oncology
DX: N30.00 Acute cystitis without hematuria (principal)
CPT/HCPCS: 81001; 87086